=== PATIENT | female | born 1965 | race Caucasian/White ===

== ENCOUNTER 2016-11-25 06:12 | Inpatient (IN) | payer MEDICARE, MEDICAID ==
[~2016-11-25] VITALS: Ht 160 cm; Wt 113.4 kg
[2016-11-25] MEDS ORDERED: ACETAMINOPHEN 325 MG TAB As Ordered ONE (06:53)
[2016-11-25] MEDS ORDERED: ALBUTEROL SULFATE 2.5 MG/0.5 ML INH NEB SOLN As Ordered ONE (06:58)
[2016-11-25] MEDS ORDERED: ONDANSETRON 4MG/2ML VIAL (J2405) As Ordered ONE (07:21)
[2016-11-25 07:25] LABS: BASO % 0.8 % (0.0-1.0); EOS # 0.1 K/mm3 (0.0-0.50); EOS % 1.3 % (0.0-3.0); LARGE UNSTAINED CELL # 0.1 K/mm3 (0.0-0.4); LARGE UNSTAINED CELL % 1.1 % (0.0-4.0); LYMPH # 0.7 K/mm3 (1.5-4.5); LYMPH % 9.1 % (24.0-44.0); MEAN CORPUSCULAR HEMOGLOBIN 26.5 pg (27.0-33.0); MEAN CORPUSCULAR HGB CONC 31.7 g/dl (32.0-36.5); MEAN CORPUSCULAR VOLUME 83.6 fl (80.0-96.0); MONO # 0.2 K/mm3 (0.0-0.8); MONO % 3.5 % (0.0-5.0); NEUTROPHILS # 5.5 K/mm3 (1.8-7.7); NEUTROPHILS % 84.1 % (36.0-66.0); PLATELET COUNT, AUTOMATED 221 k/mm3 (150-450); RED CELL DISTRIBUTION WIDTH 14.4 % (11.5-14.5); WHITE BLOOD COUNT 6.5 K/mm3 (4.0-10.0)
[2016-11-25 07:42] LABS: ANION GAP 10 MEQ/L (8-16); BLOOD UREA NITROGEN 8 MG/DL (7-18); CALCIUM LEVEL 8.4 MG/DL (8.5-10.1); CARBON DIOXIDE LEVEL 26 MEQ/L (21-32); CHLORIDE LEVEL 106 MEQ/L (98-107); CREATININE FOR GFR 0.99 MG/DL (0.55-1.02); GLOMERULAR FILTRATION RATE > 60.0 (>51); GLUCOSE, FASTING 128 MG/DL (70-105); POTASSIUM SERUM 3.5 MEQ/L (3.5-5.1); SODIUM LEVEL 142 MEQ/L (136-145)
[2016-11-25] MEDS ORDERED: IBUPROFEN 800 MG TAB As Ordered ONE (07:58)
[2016-11-25] MEDS ORDERED: AZITHROMYCIN INJ 500MG VIAL (J0456) As Ordered ONE (11:01)
[2016-11-25] MEDS ORDERED: cefTRIAXone SOD 1 GM VIAL (J0696) As Ordered ONE (11:01)
[2016-11-25] MEDS ORDERED: IPRATROPIUM 0.5MG/ALBUTEROL 2.5MG INH SOL UD 3ML (DUONEB)(J7620) NEB PRN (11:15)
[2016-11-25 11:32] VITALS: BP 131/64
[2016-11-25] MEDS ORDERED: IRBE150T12 PO (11:47)
[2016-11-25] MEDS ORDERED: PROM200C5 PO (11:47)
[2016-11-25] MEDS ORDERED: PROT1TAB2 PO (11:47)
[2016-11-25] MEDS ORDERED: ALBU83IN INH (11:47)
[2016-11-25] MEDS ORDERED: AZEL0.1S3 (11:47)
[2016-11-25] MEDS ORDERED: QVAR80AE7 INH (11:47)
[2016-11-25] MEDS ORDERED: REST0.05 OU (11:47)
[2016-11-25] MEDS ORDERED: CETI10TA PO (11:48)
[2016-11-25 11:58] VITALS: BP 131/64
[2016-11-25] MEDS ORDERED: FLUT1SPR2 (12:01)
[2016-11-25] MEDS ORDERED: ESTR62CR PV (12:01)
--- NOTE | 2016-11-25 12:49 | EDDOCDS ---
Nurse's Notes [facility] Name: Malou Castaneda Age: 51 yrs Sex: Female : 1965 Arrival Date: 11/25/2016 Time: 06:12 Bed 10 Private MD: Buck Patel A. Diagnosis: Acute upper respiratory infection, unspecified Presentation: 11/25 06:16 Presenting complaint: EMS states: pt hasn't felt good since she go the pneumonia ko2 vaccine on Thursday. She states fever, chills, general weakness and unable to eat. Suicide/Homicide risk assessment- the patient denies having any suicidal and/or homicidal ideations and does not present with any other emotional, behavioral or mental health complaints. Status: Patient is not a protective services social worker or dependent. Transition of care: patient was not received from another setting of care. Care prior to arrival: See EMS report. 06:16 Acuity: TAWANNA Level 3 ko2 06:16 Method Of Arrival: Ambulance ko2 07:15 Adult Sepsis Screening: The patient does not have new or worsening altered mentation. mcp Patient's respiratory rate is less than 22. Systolic blood pressure is greater than 100. Patient has a qSOFA score of 0- Negative Sepsis Screen. Triage Assessment: 12:06 HIV screening NA for this visit Offered previously. [facility] Historical: - Allergies: decongestants; histamines; steroids"put my body out of whack"; - Home Meds: 1. albuterol sulfate 1.25 mg/3 mL Inhl nebu 3 mL 4 times per day prn 2. azelastine 137 mcg (0.1 %) nasal spra 2 sprays 2 times per day 3. irbesartan 300 mg oral tab 1 tab once daily 4. nasal steroid spray 5. Prometrium 200 mg oral cap once daily 6. Protonix 40 mg Oral TbEC 1 tab once daily 7. Qvar inhalation 2 puffs 2 times per day 8. vaginal cream 1 gm twice weekly 9. 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 - Social history: Smoking status: Patient states former smoker of tobacco. No barriers to communication noted, The patient speaks fluent Chinese. - Hospitalizations: : No recent hospitalization is reported. - : The pt / caregiver states he / she is not on anticoagulants. Home medication list is obtained from the patient. - Immunization history:: All immunizations up-to-date. - Exposure Risk Screening:: None identified. - Family history: Not pertinent. - Social history:: the patient is a non-smoker, the patient does not drink alcohol. Screenin:47 Screening information is obtained from the patient. Fall risk: No risks identified. mcp Assistance ADL's: requires no assistance with activities of daily living. Abuse/DV Screen: The patient / caregiver reports he/she is: not in a situation that causes fear, pain or injury. Nutritional screening: No deficits noted. Advance Directives: Currently, there is no health care proxy. There is no active DNR order. There is no Power of Office Services Assistant. home support is adequate. Assessment: 07:15 General: Appears ill, Behavior is cooperative. Pain: Location: all over Pain currently mcp is 6 out of 10 on a pain scale. Neurological: No deficits noted. Respiratory: Airway is patent Respiratory effort is even, unlabored, Breath sounds are diminished bilaterally. Reports cough that is non-productive, persistent. Derm: Skin is pink, warm & dry. 08:15 General: Appears in no apparent distress, Behavior is cooperative. Pain: Location: face mcp and abdomen Pain currently is 6 out of 10 on a pain scale. Neurological: No deficits noted. Respiratory: Airway is patent Respiratory effort is even, unlabored. GI: Abdomen is obese, Bowel sounds present X 4 quads. Abd is soft X 4 quads. Derm: Skin is pink, warm & dry. 09:15 General: Appears in no apparent distress, Behavior is cooperative. Neurological: No mcp deficits noted. Respiratory: Airway is patent Respiratory effort is even, unlabored. Derm: Skin is pink, warm & dry. 09:15 Adult Sepsis Screening: The patient does not have new or worsening altered mentation. mcp Patient's respiratory rate is less than 22. Systolic blood pressure is greater than 100. Patient has a qSOFA score of 0- Negative Sepsis Screen. 10:15 General: Appears in no apparent distress, Behavior is cooperative. Neurological: No mcp deficits noted. Respiratory: Airway is patent Respiratory effort is even, unlabored. Derm: Skin is moist, Skin is pink, Skin temperature is warm. 11:15 General: Appears in no apparent distress, Behavior is cooperative. Pain: Location: face mcp and abdomen Pain currently is 5 out of 10 on a pain scale. Neurological: No deficits noted. Respiratory: Airway is patent Respiratory effort is even, unlabored. Derm: Skin is pink, warm & dry. 11:15 Adult Sepsis Screening: The patient does not have new or worsening altered mentation. mcp Patient's respiratory rate is less than 22. Systolic blood pressure is greater than 100. Patient has a qSOFA score of 0- Negative Sepsis Screen. 11:35 General: OOB and ambulated to bathroom--gait steady. mcp 12:47 General: Appears in no apparent distress, comfortable, Behavior is cooperative. Pain: mcp Denies pain. Neurological: No deficits noted. Respiratory: Airway is patent Respiratory effort is even, unlabored, Reports cough that is non-productive, persistent. Derm: Skin is pink, warm & dry. Vital Signs: 06:23 BP 156 / 84 RA Supine (auto/reg); Pulse 131 MON; Resp 24 S; Temp 102.9(O); Pulse Ox 96% cln on R/A; Pain 10/10; 08:00 Temp 102.6(O); mcp 08:01 BP 139 / 78; Pulse 128; Resp 20; Temp 102.6(O); Pulse Ox 97% on R/A; Pain 5/10; mcp 09:00 Temp 99.8(O); mcp 09:39 Pulse 96; Resp 20; Temp 99.8(O); mcp 11:35 BP 131 / 64; Pulse 111; Resp 20; Temp 98.1(O); Pulse Ox 97% on R/A; Pain 5/10; mcp 12:47 BP 128 / 63; Pulse 98; Resp 20; Temp 98(O); Pulse Ox 96% on R/A; Pain 0/10; mcp ED Course: 06:13 Patient visited by Natalia Miller. sew 06:13 Patient moved to 10 sew 06:14 Buck Patel is Private Physician. sew 06:14 Patient visited by Natalia Miller. sew 06:18 Ester Savage,RN is Primary Nurse. cf2 06:18 Patient visited by Ester Savage,SHYAM. cf2 06:18 Triage Initiated ko2 06:25 Patient visited by Susanna Fernandes PCA. cln 06:33 Jorgito Gaitan MD is Attending Physician. pc 06:36 Patient visited by Jorgito Gaitan MD. pc 06:58 -Influenza A&B Rapid Antigen - Nose Sent. cf2 06:59 Attending Physician role handed off by Jorgito Gaitan MD sd1 06:59 Natalia Wilkes MD is Attending Physician. sd1 07:09 Patient visited by Ester Savage RN. cf2 07:20 BLOOD CULTURES Sent. mcp 07:20 -Blood Culture Sent. mcp 07:20 MED Profile Sent. mcp 07:20 CBC with Diff Sent. mcp 07:47 The patient / caregiver is instructed regarding the plan of care and ED course. Patient mcp has correct armband on for positive identification. Placed in gown. Bed in low position. Call light in reach. Side rails up X2. 07:47 Missed attempts: 20 gauge X 1 in right hand. mcp 07:47 Inserted saline lock: 20 gauge in left antecubital area and blood collected. The [facility] patient tolerated the procedure well. Labs drawn. (by ED staff). Sent per order to lab. Labs/Blood culture drawn. 07:48 Patient visited by Christi Lundy RN. mcp 08:02 Patient visited by Christi Lundy RN. mcp 08:06 [facility] Payment Agreement was scanned into [employer] and attached to record. mm15 09:11 Patient visited by Gloria Carpio PCA. ct3 09:38 Lactic Acid (Ivory tube on ice) Sent. mcp 09:38 Labs drawn. (by ED staff). Sent per order to lab. mcp 09:57 Patient visited by Gloria Carpio PCA. ct3 10:06 Patient visited by Abiodun Narvaez. dem1 10:06 Diet: Patient given regular meal. dem1 11:03 Rafael Stewart MD is Hospitalizing Provider. sd1 11:16 Patient visited by Christi Lundy RN. mcp 11:36 Patient visited by Christi Lundy RN. mcp 12:05 No procedures done that require assistance. mcp 12:07 Patient visited by Christi Lundy RN. [facility] Administered Medications: 06:58 Drug: Acetaminophen 650 mg [acetaminophen 325 mg tablet (2 tabs)] Route: PO; cf2 08:00 Follow up: Temp 102.6 Oral; Response: Temperature is unchanged [facility] 07:00 Drug: Albuterol 5 mg [albuterol sulfate 2.5 mg/0.5 mL solution for nebulization (1 mL)] bb3 Route: Nebulizer; 07:10 Follow up: lung sounds increased throughout with scattered expiratory wheezes. No bb3 adverse reaction to tx. Pt denies SOB past baseline at rest at this time. 07:26 Drug: Ondansetron 4 mg [ondansetron HCl 2 mg/mL intravenous solution (2 mL)] Route: mcp IVP; Site: left antecubital; 07:26 Drug: NS 0.9% 1000 ml [sodium chloride 0.9 % intravenous solution] Route: IV; Rate: mcp bolus; Site: left antecubital; 11:14 Follow up: IV Status: Completed infusion; IV Intake: 1000ml [facility] 08:01 Drug: Ibuprofen 800 mg [ibuprofen 800 mg tablet (1 tabs)] Route: PO; [facility] 09:00 Follow up: Temp 99.8 Oral; Response: Temperature is decreased [facility] 11:12 Drug: cefTRIAXone 1 grams [ceftriaxone 1 gram solution for injection] Route: IVPB; mcp Infused Over: 30 mins; Site: left antecubital; 11:34 Drug: azithromycin 500 mg [azithromycin 500 mg intravenous solution] Route: IVPB; mcp Infused Over: 1 hrs; Site: left antecubital; Intake: 11:14 IV: 1000.00ml; Total: 1000.00ml. [facility] RT: 06:59 Oxygen is room air. Respiratory: Respiratory effort is even, Use of accessory muscles bb3 noted. Respiratory pattern is regular symmetrical, tachypnea Breath sounds are diminished Breath sounds with wheezes bilaterally. at expiration Reports cough that is productive that she thinks she has thrush. Pt states she has not always rinsed mouth after taking QVAR at home. 07:01 Initial Med Neb Given as ordered Patient was instructed and evaluated on procedure. bb3 07:02 Respiratory: Sputum is thick green yellow spontaneously expectorated during neb tx. bb3 small amount. 07:09 Respiratory: lung sounds increased throughout with scattered expiratory wheezes. No bb3 adverse reaction to tx. Pt denies SOB past baseline at rest at this time. Order Results: Lab Order: CBC with Diff; SPEC'M 11/25/16 06:42 Test: WHITE BLOOD COUNT; Value: 6.5; Range: 4.0-10.0; Units: K/mm3; Status: F Test: RED BLOOD COUNT; Value: 4.63; Range: 4.00-5.40; Units: M/mm3; Status: F Test: HEMOGLOBIN; Value: 12.3; Range: 12.0-16.0; Units: g/dl; Status: F Test: HEMATOCRIT; Value: 38.7; Range: 36.0-47.0; Units: %; Status: F Test: MEAN CORPUSCULAR VOLUME; Value: 83.6; Range: 80.0-96.0; Units: fl; Status: F Test: MEAN CORPUSCULAR HEMOGLOBIN; Value: 26.5; Range: 27.0-33.0; Abnormal: Below low normal; Units: pg; Status: F Test: MEAN CORPUSCULAR HGB CONC; Value: 31.7; Range: 32.0-36.5; Abnormal: Below low normal; Units: g/dl; Status: F Test: RED CELL DISTRIBUTION WIDTH; Value: 14.4; Range: 11.5-14.5; Units: %; Status: F Test: PLATELET COUNT, AUTOMATED; Value: 221; Range: 150-450; Units: k/mm3; Status: F Test: NEUTROPHILS %; Value: 84.1; Range: 36.0-66.0; Abnormal: Above high normal; Units: %; Status: F Test: LYMPH %; Value: 9.1; Range: 24.0-44.0; Abnormal: Below low normal; Units: %; Status: F Test: MONO %; Value: 3.5; Range: 0.0-5.0; Units: %; Status: F Test: EOS %; Value: 1.3; Range: 0.0-3.0; Units: %; Status: F Test: BASO %; Value: 0.8; Range: 0.0-1.0; Units: %; Status: F Test: LARGE UNSTAINED CELL %; Value: 1.1; Range: 0.0-4.0; Units: %; Status: F Test: NEUTROPHILS #; Value: 5.5; Range: 1.8-7.7; Units: K/mm3; Status: F Test: LYMPH #; Value: 0.7; Range: 1.5-4.5; Abnormal: Below low normal; Units: K/mm3; Status: F Test: MONO #; Value: 0.2; Range: 0.0-0.8; Units: K/mm3; Status: F Test: EOS #; Value: 0.1; Range: 0.0-0.50; Units: K/mm3; Status: F Test: BASO #; Value: 0.0; Range: 0.0-0.2; Units: K/mm3; Status: F Test: LARGE UNSTAINED CELL #; Value: 0.1; Range: 0.0-0.4; Units: K/mm3; Status: F Lab Order: MED Profile; [facility] 11/25/16 06:41 Test: GLUCOSE, FASTING; Value: 128; Range: 70-105; Abnormal: Above high normal; Units: MG/DL; Status: F Test: BLOOD UREA NITROGEN; Value: 8; Range: 7-18; Units: MG/DL; Status: F Test: CREATININE FOR GFR; Value: 0.99; Range: 0.55-1.02; Units: MG/DL; Status: F Test: GLOMERULAR FILTRATION RATE; Value: > 60.0; Range: >51; Status: F Test: SODIUM LEVEL; Value: 142; Range: 136-145; Units: MEQ/L; Status: F Test: POTASSIUM SERUM; Value: 3.5; Range: 3.5-5.1; Units: MEQ/L; Status: F Test: CHLORIDE LEVEL; Value: 106; Range: 98-107; Units: MEQ/L; Status: F Test: CARBON DIOXIDE LEVEL; Value: 26; Range: 21-32; Units: MEQ/L; Status: F Test: ANION GAP; Value: 10; Range: 8-16; Units: MEQ/L; Status: F Test: CALCIUM LEVEL; Value: 8.4; Range: 8.5-10.1; Abnormal: Below low normal; Units: MG/DL; Status: F Test Note: ; Units are mL/min/1.73 m2 Chronic Kidney Disease Staging per NKF: Stage I & II GFR >=60 Normal to Mildly Decreased Stage III GFR 30-59 Moderately Decreased Stage IV GFR 15-29 Severely Decreased Stage V GFR <15 Very Little GFR Left ESRD GFR <15 on GAME [employer]UCER Lab Order: -Influenza A&B Rapid Antigen - Nose; SPEC'M 11/25/16 06:42 Test: INFLUENZA A RAPID SCR by ICA; Value: INFLUENZA A RESULTS NEGATIVE; Status: F Test: INFLUENZA A RAPID SCR by ICA; Value: Comments:; Status: F Test: INFLUENZA B RAPID SCR by ICA; Value: INFLUENZA B RESULTS NEGATIVE; Status: F Test Note: ; The Influenza test is a direct rapid immunoassay for the qualitative detection of Influenza viral antigen. Cell culture (Viral Culture) testing should be considered to confirm NEGATIVE results and to assist in detecting other viruses that can provide similar clinical symptoms. Please contact the lab within 24 hours ([phone]) if confirmatory testing is desired. Lab Order: Lactic Acid (Ivory tube on ice); SPEC'M 11/25/16 09:36 Test: LACTIC ACID LEVEL, LACTATE; Value: 3.0; Range: 0.4-2.0; Abnormal: Above upper panic limits; Units: MMOL/L; Status: F Outcome: 11:04 Decision to Hospitalize by Provider. sd1 12:47 Discharge Assessment: patient administered narcotics - no. The following High Risk [facility] Discharge criteria are identified: None. Admitted to Pediatrics accompanied by tech, via stretcher, with chart. Condition: stable. No special radiology studies were completed. Property :Personal belongings accompany Pt. 12:48 Patient left the ED. [facility] Signatures: Jorgito Gaitan MD MD pc Delaney-Rowland, Sarah, MD MD sd1 Christi Lundy RN RN [facility] Harris Moreno bb3 Gloria Carpio, KILN PACKER KILN PACKER ct3 Abiodun Narvaez dem1 Natalia Miller Marlynn mm15 Elizabeth Cohen RN RN ko2 Susanna Fernandes, KILN PACKER KILN PACKER cln Ester Savage,SHYAM RN cf2 Corrections: (The following items were deleted from the chart) 07:04 06:59 Respiratory: Respiratory effort is even, Use of accessory muscles noted. bb3 Respiratory pattern is regular symmetrical, tachypnea Breath sounds are diminished Breath sounds with wheezes bilaterally. at expiration Reports cough that is productive bb3 11:13 09:39 Temp 99.8F Oral; mcp mcp MTDD
--- NOTE | 2016-11-25 12:50 | EDDOCDS ---
Physician Documentation [facility] Name: Malou Castaneda Age: 51 yrs Sex: Female : 1965 Arrival Date: 11/25/2016 Time: 06:12 Bed 10 Private MD: Buck Patel A. Disposition: 11/25/16 11:04 Hospitalization ordered by Rafael Stewart for Inpatient Admission. Preliminary diagnosis is Acute upper respiratory infection, unspecified. - Bed requested for M PED. - Status is Inpatient Admission. mcp - Condition is Stable. - Problem is new. - Symptoms have improved. HPI: 11/25 06:38 This 51 yrs old Female presents to ER via Ambulance with complaints of pc General Illness. 06:38 The history is obtained from the patient. She had been feeling well until when she received the pneumococcal vaccine. She has had fevers, chills, a nonproductive cough, and body aches since. She has nausea and is "deathly afraid of vomiting". She denies any vomiting or diarrhea, symptoms, headache, rashes, joint swellings. The patient has not experienced similar symptoms in the past. The patient has been recently seen by their primary care provider, 6 day(s) ago. Historical: - Allergies: decongestants; histamines; steroids"put my body out of whack"; - Home Meds: 1. albuterol sulfate 1.25 mg/3 mL Inhl nebu 3 mL 4 times per day prn 2. azelastine 137 mcg (0.1 %) nasal spra 2 sprays 2 times per day 3. irbesartan 300 mg oral tab 1 tab once daily 4. nasal steroid spray 5. Prometrium 200 mg oral cap once daily 6. Protonix 40 mg Oral TbEC 1 tab once daily 7. Qvar inhalation 2 puffs 2 times per day 8. vaginal cream 1 gm twice weekly 9. 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 - Social history: Smoking status: Patient states former smoker of tobacco. No barriers to communication noted, The patient speaks fluent Nepali. - Hospitalizations: : No recent hospitalization is reported. - : The pt / caregiver states he / she is not on anticoagulants. Home medication list is obtained from the patient. - Immunization history:: All immunizations up-to-date. - Exposure Risk Screening:: None identified. - Family history: Not pertinent. - Social history:: the patient is a non-smoker, the patient does not drink alcohol. ROS: 06:38 All systems are negative except as listed. pc Exam: 06:38 General Appearance: no acute distress, alert, anxious. pc 06:38 EENT: normal eye inspection, ears, nose and throat normal, pharynx normal, mucous membranes moist 06:38 Neck: The exam reveals no acute abnormalities. ROM is normal and painless. No nuchal rigidity is noted.. 06:38 Respiratory: no respiratory distress, chest non-tender, Respirations/effort: tachypnea, Breath sounds: wheezing, throughout. 06:38 CVS: regular rhythm, normal S1 and S2, no murmurs, strong peripheral pulses, normal capillary refill, the patient is tachycardic, at 130 bpm. 06:38 Abdomen: soft, non-tender, no organomegaly, normal bowel sounds. 06:38 Back: normal inspection. 06:38 Skin: skin color is normal, warm, dry. 06:38 Extremities: The extremities have a grossly normal appearance, are non-tender, without acute ROM abnormalities. 06:38 Neuro: oriented x 3, cranial nerves normal as tested, no motor deficits, no sensory deficits. 06:38 Psych: normal mood. Vital Signs: 06:23 BP 156 / 84 RA Supine (auto/reg); Pulse 131 MON; Resp 24 S; Temp 102.9(O); Pulse Ox 96% cln on R/A; Pain 10/10; 08:00 Temp 102.6(O); mcp 08:01 BP 139 / 78; Pulse 128; Resp 20; Temp 102.6(O); Pulse Ox 97% on R/A; Pain 5/10; mcp 09:00 Temp 99.8(O); mcp 09:39 Pulse 96; Resp 20; Temp 99.8(O); mcp 11:35 BP 131 / 64; Pulse 111; Resp 20; Temp 98.1(O); Pulse Ox 97% on R/A; Pain 5/10; mcp 12:47 BP 128 / 63; Pulse 98; Resp 20; Temp 98(O); Pulse Ox 96% on R/A; Pain 0/10; mcp MDM: 06:38 IV Saline Lock ordered. pc 06:38 Ondansetron 4 mg IVP once ordered. pc 06:38 NS 0.9% 1000 ml IV at bolus once ordered. pc 06:38 Acetaminophen Tablet 650 mg PO once ordered. pc 06:38 -Blood Culture (Adults Only), peripheral from different site, or from device/port/PICC pc etc. if present ordered. 06:38 Obtain sample by nasopharyngeal swab ordered. pc 06:38 -Blood Culture (Adults Only), peripheral from different site, or from device/port/PICC sew etc. if present complete. 06:38 Differential Diagnosis: fever, cough r/o pneumonia. Plan: labs, meds, CXR. pc 06:39 CBC with Diff Ordered. EDMS 06:39 MED Profile Ordered. EDMS 06:39 -Blood Culture Ordered. EDMS 06:39 -Influenza A&B Rapid Antigen - Nose Ordered. EDMS 06:39 Chest, 2 View (pa\\E\\lat) Ordered. EDMS 06:41 BLOOD CULTURES Ordered. EDMS 06:47 Albuterol 5 mg Nebulizer once ordered. pc 06:47 Call Respiratory ordered. pc 06:54 Call Respiratory complete. nov 07:51 CBC with Diff Reviewed. sd1 07:51 MED Profile Reviewed. sd1 07:51 -Influenza A&B Rapid Antigen - Nose Reviewed. sd1 07:56 Ibuprofen 800 mg PO once ordered. sd1 08:05 Financial registration complete. mm15 08:06 [facility] Payment Agreement was scanned into [employer] and attached to record. mm15 08:35 Lactic Acid (Ivory tube on ice) Ordered. EDMS 09:53 REGULAR+DIET ordered. EDMS 10:33 cefTRIAXone 1 grams IVPB once over 30 mins; dilute in 50mL of NS or D5W ordered. sd1 10:33 azithromycin 500 mg IVPB once over 1 hrs; dilute in 250mL of D5W or NS ordered. sd1 10:34 Lactic Acid (Ivory tube on ice) Reviewed. sd1 11:17 ELECTROCARDIOGRAM ADULT ordered. EDMS 11:17 2 GRAM SODIUM DIET ordered. EDMS 11:17 LEGIONELLA ANTIGEN URINE Ordered. EDMS 11:17 URINE STREP PNEUMONIAE ANTIGEN Ordered. EDMS 11:17 SPUTUM CULTURE AND GRAM STAIN Ordered. EDMS 11:18 Admission / Observation Status ordered. EDMS 11:20 LACTIC ACID LEVEL, LACTATE Ordered. EDMS Administered Medications: 06:58 Drug: Acetaminophen 650 mg [acetaminophen 325 mg tablet (2 tabs)] Route: PO; cf2 08:00 Follow up: Temp 102.6 Oral; Response: Temperature is unchanged [facility] 07:00 Drug: Albuterol 5 mg [albuterol sulfate 2.5 mg/0.5 mL solution for nebulization (1 mL)] bb3 Route: Nebulizer; 07:10 Follow up: lung sounds increased throughout with scattered expiratory wheezes. No bb3 adverse reaction to tx. Pt denies SOB past baseline at rest at this time. 07:26 Drug: Ondansetron 4 mg [ondansetron HCl 2 mg/mL intravenous solution (2 mL)] Route: mcp IVP; Site: left antecubital; 07:26 Drug: NS 0.9% 1000 ml [sodium chloride 0.9 % intravenous solution] Route: IV; Rate: mcp bolus; Site: left antecubital; 11:14 Follow up: IV Status: Completed infusion; IV Intake: 1000ml [facility] 08:01 Drug: Ibuprofen 800 mg [ibuprofen 800 mg tablet (1 tabs)] Route: PO; [facility] 09:00 Follow up: Temp 99.8 Oral; Response: Temperature is decreased [facility] 11:12 Drug: cefTRIAXone 1 grams [ceftriaxone 1 gram solution for injection] Route: IVPB; mcp Infused Over: 30 mins; Site: left antecubital; 11:34 Drug: azithromycin 500 mg [azithromycin 500 mg intravenous solution] Route: IVPB; mcp Infused Over: 1 hrs; Site: left antecubital; Signatures: Dispatcher [employer] EDMS Jorgito Gaitan MD MD pc Delaney-Rowland, Sarah, MD MD sd1 Yarelis Gallardo RN RN kpj Newman, Jill New, RN RN jan Peters, Mary, RN RN [facility] Natalia Miller Marlynn mm15 Elizabeth Cohen RN RN ko2 Katarina Way RN RN lmg Bouthillier, Brad bb3 Familetti-Evans, Ester RN cf2 The chart was reviewed and I authenticate all verbal orders and agree with the evaluation and treatment provided.Corrections: (The following items were deleted from the chart) 12:28 11:20 Sinuses ordered. EDMS EDMS Attachments: 08:06 [facility] Payment Agreement mm15 MTDD
[2016-11-25 12:52] VITALS: BP 130/96
[2016-11-25] MEDS: NS 1,000 ML IV SCH ×2 (13:51→20:42)
[2016-11-25] MEDS: ENOXAPARIN 40 MG/0.4 ML SYRINGE (J1650) SC SCH (13:59)
[2016-11-25] MEDS: IPRATROPIUM 0.5MG/ALBUTEROL 2.5MG INH SOL UD 3ML (DUONEB)(J7620) NEB SCH ×4 (14:00→23:21)
[2016-11-25] MEDS ORDERED: ALBUTEROL SULFATE 2.5 MG/0.5 ML INH NEB SOLN INH PRN (14:15)
[2016-11-25] MEDS: PANTOPRAZOLE 40MG TAB (PROTONIX) PO SCH (14:25)
--- NOTE | 2016-11-25 14:38 | REP ---
PA and lateral chest radiograph 11/25/2016 Indication: Cough Comparison: Chest radiographs 11/07/2016, 07/20/2016 Findings: Cardiomediastinal silhouette is normal. There is a small stable right epicardial fat pad. The lungs are otherwise clear. Bones and soft tissues are within normal limits. Impression: no acute cardiopulmonary process or interval change Signed by Juana Quick MD 11/25/2016 10:10 A
--- NOTE | 2016-11-25 14:56 | HPEPDOC ---
General Date of Admission Nov 25, 2016 at 11:13 Chief Complaint The patient is a 51-year-old female Presented to the ER with complaints of cough and fever at home History of Present Illness Patient is a 51 year old female with a PMHx of chronic sinusitis (s/p 3 surgeries on the R, scheduled for surgery on the L), GERD, HTN, Asthma and Usher Syndrome (Type 2) who presented to the ER with complaints of cough for the last 2-3 days. She notes that her cough was productive with yellow sputum. She denies any blood in her sputum. She denies any shortness of breath. She does note that she has measured a fever at home prior to arrival. She measured her temperature orally at 101.4F. She notes that she has been wheezing. She denies any lower extremity swelling, denies the inability to lay flat on her back and denies any night time awakenings because of shortness of breath. She notes that she has received the flu shot in August this year and has received the pneumococcal vaccine on 11/20. She denies the use of any recent antibiotics. She denies nausea, vomiting, abdominal pain, constipation, diarrhea or urinary symptoms. She denies chest pain, palpitations. Home Medications Scheduled (Restasis) 0.05 % Emu 0.05 % OU BID (Reported) Azelastine Hydrochloride (Azelastine HCl) 137 Mcg/[place] Spr 2 SPRAY NA BID ( Reported) Beclomethasone Dipropionate (Qvar) 80 Mcg/Act Aer 80 MCG INH BID (Reported) Conjugated Estrogens (Premarin) 1 Dose/30 Gm Cr 1 GRAM PV 2XWK (Reported) THURSDAY AND THURSDAY Fluticasone Propionate (Fluticasone Propionate 0.05%) 120 [place]/16 Gm Naspr 2 SPRAY NA BID (Reported) PER NOSTRIL Irbesartan (Irbesartan) 150 Mg Tab 150 MG PO DAILY (Reported) Pantoprazole Sodium Sesquihydr (Protonix) 40 Mg Tab 40 MG PO DAILY (Reported) Scheduled PRN Albuterol Sulfate (Albuterol Sulfate) 2.5 Mg/3 Ml Nebu 2.5 MG INH Q4H PRN PRN SHORTNESS OF BREATH (Reported) Allergies Coded Allergies: Animal Dander (Unverified Allergy, Unknown, 11/19/15) ENVIROMENTAL (Unverified Allergy, Unknown, 11/19/15) Histamine (Unverified Allergy, Unknown, 11/25/16) Uncoded Allergies: DECONGESTANTS (Adverse Reaction, Intermediate, HEART FLUTTERS, 11/19/15) Past Medical History Medical History Chronic sinusitis (s/p 3 surgeries on the R, scheduled for surgery on the L), GERD, HTN, Asthma and Usher Syndrome (Type 2) Surgical History Right fallopian tube removed Ovarian cyst removal Heart ablation (2000) 2/2 palpitations Right sinus surgery x3 Family History Family History - Mother with skin cancer - Father with DLP and heart disease Social History Social History - Denies the use of alcohol, or illicit drugs; Smoked for 5 years about 30 years ago - Denies recent travel or sick contacts - Lives alone - Occupation; on disability Review of Symptoms Other systems Constitutional: Denies weight loss, or recent trauma; Reports poor appetite Eyes: No visual changes or eye pain Ears, Nose, Throat: Denies nose bleeds, or difficulty swallowing Cardiovascular: Denies chest pain, sweating, or orthopnea Respiratory: Positive productive cough and wheezing, Denies shortness of breath GI: Braydon nausea, vomiting, abdominal pain, diarrhea or constipation : Denies pain with urination or frequency Musculoskeletal: Denies joint pain or swelling Neuro / Psych: Denies muscle weakness or sensory loss Skin: No skin rashes noted All other review of systems negative; otherwise stated in history of present illness Screening: - Colonoscopy done 2 years ago reported normal - Pap smear and mammogram done within 1 year reported normal Vital Signs - Vitals: BP 139/78, HR 128, RR 20, Sat 97%RA, Temp 102.9 - General: Lying in bed, No acute distress, Speaking in full sentences, AAOx3 - HEENT: NC, AT, PERRLA, EOMI - CVS: Tachycardia, Regular rhythm, +S1S2 - Lungs: Fair air entry bilaterally, Clear to auscultation, No wheezing / rales / rhonchi - Abdomen: Soft, Non-distended, Non-tender, + Bowel sounds x 4 - Extremities: + PPx4, No lower extremity edema, No calf tenderness - Neuro: No focal motor or sensory deficit - Skin: No visible rashes Laboratory Data Labs 24H Laboratory Tests 2 11/25/16 06:41: Anion Gap 10, Blood Urea Nitrogen 8, Creatinine 0.99, Sodium Level 142, Potassium Level 3.5, Chloride Level 106, Carbon Dioxide Level 26, Calcium Level 8.4L, Glomerular Filtration Rate > 60.0 11/25/16 06:42: White Blood Count 6.5, Red Blood Count 4.63, Hemoglobin 12.3, Hematocrit 38.7, Mean Corpuscular Volume 83.6, Mean Corpuscular Hemoglobin 26.5L, Mean Corpuscular Hemoglobin Concent 31.7L, Red Cell Distribution Width 14.4, Platelet Count 221, Neutrophils (%) (Auto) 84.1H, Lymphocytes (%) (Auto) 9.1L, Monocytes (%) (Auto) 3.5, Eosinophils (%) (Auto) 1.3, Basophils (%) (Auto) 0.8, Neutrophils # (Auto) 5.5, Lymphocytes # (Auto) 0.7L, Monocytes # (Auto) 0.2, Eosinophils # (Auto) 0.1, Basophils # (Auto) 0.0, Large Unclassified Cells # 0.1 , Large Unclassified Cells % 1.1 11/25/16 09:36: Lactic Acid Level 3.0*H 11/25/16 13:52: Lactic Acid Level 1.0 CBC/BMP Laboratory Tests 11/25/16 06:41 Calcium Level 8.4 L 11/25/16 06:42 Red Blood Count 4.63, Mean Corpuscular Volume 83.6, Mean Corpuscular Hemoglobin 26.5 L, Mean Corpuscular Hemoglobin Concent 31.7 L, Red Cell Distribution Width 14.4, Neutrophils (%) (Auto) 84.1 H, Lymphocytes (%) (Auto) 9.1 L, Monocytes (% ) (Auto) 3.5, Eosinophils (%) (Auto) 1.3, Basophils (%) (Auto) 0.8, Neutrophils # (Auto) 5.5, Lymphocytes # (Auto) 0.7 L, Monocytes # (Auto) 0.2, Eosinophils # (Auto) 0.1, Basophils # (Auto) 0.0 Microbiology Microbiology 11/25/16 Blood Culture, Received Pending 11/25/16 Blood Culture, Received Pending 11/25/16 Influenza Virus Type A Antigen - Final, Complete 11/25/16 Influenza Virus Type B Antigen - Final, Complete Plan / VTE VTE Prophylaxis Ordered?: Yes Plan Plan 1. Sepsis possibly 2/2 CAP, possibly 2/2 sinusitis - Clinically has productive cough with yellow sputum, Fevers at home - Has had fevers in the ER - Elevated lactic acid, trending down with IV fluid hydration - CXR negative - Will f/u blood culture, sputum culture and strep pneumonia / legionella urine antigen - Will get CT chest and XR sinuses - Will c/w Ceftriaxone and Azithromycin 2. Dyspnea likely 2/2 #1 - improving - no evidence of wheezing on physical exam 3. Chronic sinusitis - most recent antibiotic use was September - s/p R sided surgery x3 - scheduled for left sided surgery in November 4. HTN - BP well controlled; will c/w SOHAIL-I withholding parameters 5. Asthma - c/w Duoneb 6. Usher Syndrome (Type 2) 7. GERD - c/w protonix 8. DVT prophylaxis - Will start lovenox SATHYA HI MD Nov 25, 2016 14:56
[2016-11-25 16:00] VITALS: BP 132/87
[2016-11-25] MEDS: IRBESARTAN 150 MG TAB PO SCH (16:48)
[2016-11-25] MEDS: ACETAMINOPHEN TAB 650MG DOSE (2X325MG) PO PRN ×2 (16:48→21:31)
[2016-11-25 20:00] VITALS: BP 139/77
[2016-11-25] MEDS: AZELASTINE 137MCG NASAL SPY 30 ML (ASTELIN) SCH (20:41)
[2016-11-25] MEDS: FLUTICASONE PROP 0.05% NASAL SPRAY 16 GM (FLONASE) SCH (20:41)
[2016-11-25] MEDS: CEPACOL LOZENGE PO PRN (22:01)
[2016-11-25 23:30] VITALS: BP 115/61
[2016-11-26] VITALS (7 sets, daily range): BP systolic 112–143; BP diastolic 63–77
[2016-11-26] MEDS: IBUPROFEN 800 MG TAB PO PRN ×2 (00:11→17:56)
[2016-11-26] MEDS: LORazepam 0.5 MG TAB PO PRN ×2 (00:11→21:51)
[2016-11-26] MEDS: CEPACOL LOZENGE PO PRN ×4 (00:11→21:51)
[2016-11-26 07:12] LABS: ALBUMIN 2.6 GM/DL (3.2-5.2); ALBUMIN/GLOBULIN RATIO 0.81 (1.00-1.93); ALKALINE PHOSPHATASE 61 U/L (45-117); ALT/SGPT 14 U/L (12-78); ANION GAP 9 MEQ/L (8-16); AST/SGOT 8 U/L (15-37); BILIRUBIN,TOTAL 0.2 MG/DL (0.2-1.0); BLOOD UREA NITROGEN 6 MG/DL (7-18); CALCIUM LEVEL 7.9 MG/DL (8.5-10.1); CARBON DIOXIDE LEVEL 22 MEQ/L (21-32); CHLORIDE LEVEL 112 MEQ/L (98-107); CREATININE FOR GFR 0.75 MG/DL (0.55-1.02); GLOMERULAR FILTRATION RATE > 60.0 (>51); GLUCOSE, FASTING 111 MG/DL (70-105); MAGNESIUM LEVEL 1.9 MG/DL (1.8-2.4); POTASSIUM SERUM 3.6 MEQ/L (3.5-5.1); SODIUM LEVEL 143 MEQ/L (136-145); TOTAL PROTEIN 5.8 GM/DL (6.4-8.2)
[2016-11-26 07:18] LABS: BASO % 0.7 % (0.0-1.0); EOS % 1.2 % (0.0-3.0); LARGE UNSTAINED CELL # 0.1 K/mm3 (0.0-0.4); LARGE UNSTAINED CELL % 1.8 % (0.0-4.0); LYMPH # 0.7 K/mm3 (1.5-4.5); LYMPH % 17.8 % (24.0-44.0); MEAN CORPUSCULAR HEMOGLOBIN 27.2 pg (27.0-33.0); MEAN CORPUSCULAR HGB CONC 32.4 g/dl (32.0-36.5); MEAN CORPUSCULAR VOLUME 84.2 fl (80.0-96.0); MONO # 0.2 K/mm3 (0.0-0.8); MONO % 5.9 % (0.0-5.0); NEUTROPHILS # 2.6 K/mm3 (1.8-7.7); NEUTROPHILS % 72.6 % (36.0-66.0); PLATELET COUNT, AUTOMATED 189 k/mm3 (150-450); RED CELL DISTRIBUTION WIDTH 14.6 % (11.5-14.5); WHITE BLOOD COUNT 3.6 K/mm3 (4.0-10.0)
[2016-11-26] MEDS: IPRATROPIUM 0.5MG/ALBUTEROL 2.5MG INH SOL UD 3ML (DUONEB)(J7620) NEB SCH ×3 (07:58→19:58)
[2016-11-26] MEDS: ENOXAPARIN 40 MG/0.4 ML SYRINGE (J1650) SC SCH (08:39)
[2016-11-26] MEDS: PANTOPRAZOLE 40MG TAB (PROTONIX) PO SCH (08:39)
[2016-11-26] MEDS: AZELASTINE 137MCG NASAL SPY 30 ML (ASTELIN) SCH ×2 (08:39→20:27)
[2016-11-26] MEDS: FLUTICASONE PROP 0.05% NASAL SPRAY 16 GM (FLONASE) SCH ×2 (08:39→20:26)
[2016-11-26] MEDS: cefTRIAXone SOD 1 GM in D5W MINI-BAG PLUS 50 ML IV SCH (11:09)
[2016-11-26] MEDS ORDERED: AZITHROMYCIN 500 MG, VIAL MATE ADAPTER 1 EACH in D5W 250 ML IV SCH (12:00)
[2016-11-26] MEDS: ACETAMINOPHEN TAB 650MG DOSE (2X325MG) PO PRN ×2 (14:00→19:01)
--- NOTE | 2016-11-26 14:06 | IPNPDOC ---
Text Note Date of Service The patient was seen on 11/26/16 at 14:02. NOTE Subjective: Patient is a 51 year old female with a PMHx of chronic sinusitis (s/p 3 surgeries on the R, scheduled for surgery on the L), GERD, HTN, Asthma and Usher Syndrome (Type 2) who presented to the ER with complaints of productive cough. Patient was admitted for Sepsis 2/2 CAP / Bronchitis / Sinusitis. Her lactic acid has been trending down. She has been seen and examined at the bedside. She notes that she is feeling better. Her last fever was 1/3 PM. Objective: Vitals (See below) General: Lying in bed, no acute distress, AAOx3 HEENT: NC, AT CVS: RRR, +S1S2 Lungs: Fair air entry b/l, -w/r/r Abdomen: Soft, ND, NT, +BSx4 Extremities: +PPx4, -edema, - calf tenderness Assessment and plan: 1. Sepsis possibly 2/2 CAP or bronchitis , possibly 2/2 sinusitis - Clinically has productive cough with yellow sputum, fevers at home, ER and inpatient - Tmax of 102 1/3 PM - Elevated lactic acid, has trending down with IV fluid hydration - CXR negative - Will f/u blood culture, sputum culture and strep pneumonia / legionella urine antigen - Will get CT chest and XR sinuses - c/w Ceftriaxone and Azithromycin (Day #2) 2. Dyspnea likely 2/2 #1 - improving - no evidence of wheezing on physical exam 3. Chronic sinusitis - most recent antibiotic use was September - s/p R sided surgery x3 - scheduled for left sided surgery in November - will get XR sinuses now to evaluate for acute sinusitis 4. HTN - BP well controlled; will c/w SOHAIL-I withholding parameters 5. Asthma - c/w Duoneb 6. Usher Syndrome (Type 2) 7. GERD - c/w protonix 8. DVT prophylaxis - c/w lovenox VS,Fishbone, I+O VS, Fishbone, I+O Laboratory Tests 11/26/16 06:16 Calcium Level 7.9 L, Aspartate Amino Transf (AST/SGOT) 8 L, Alanine Aminotransferase (ALT/SGPT) 14, Alkaline Phosphatase 61, Total Bilirubin 0.2, Total Protein 5.8 L, Albumin 2.6 L, Red Blood Count 3.86 L, Mean Corpuscular Volume 84.2, Mean Corpuscular Hemoglobin 27.2, Mean Corpuscular Hemoglobin Concent 32.4, Red Cell Distribution Width 14.6 H, Neutrophils (%) (Auto) 72.6 H , Lymphocytes (%) (Auto) 17.8 L, Monocytes (%) (Auto) 5.9 H, Eosinophils (%) ( Auto) 1.2, Basophils (%) (Auto) 0.7, Neutrophils # (Auto) 2.6, Lymphocytes # ( Auto) 0.7 L, Monocytes # (Auto) 0.2, Eosinophils # (Auto) 0.0, Basophils # (Auto ) 0.0 Vital Signs Date Time Temp Pulse Resp B/P Pulse Ox O2 Delivery O2 Flow Rate FiO2 11/26/16 12:00 100.0 103 20 143/77 95 Room Air I&O- Last 24 Hours up to 6 AM 11/26/16 06:00 Intake Total 2762 ml Output Total 750 ml Balance 2011 ml SATHYA HI MD Nov 26, 2016 14:06
--- NOTE | 2016-11-26 15:08 | REP ---
PARANASAL SINUS SERIES: Four views of paranasal sinus are performed. There appears to be trace mucosal thickening in the sphenoid, maxillary, and ethmoid sinuses. No air-fluid levels are seen. Adenoids are not definitely enlarged. IMPRESSION: Trace mucosal thickening ethmoid, maxillary, and sphenoid sinuses. No air-fluid levels. Signed by Yosi Ivory MD 11/26/2016 05:23 P
[2016-11-26] MEDS: IRBESARTAN 150 MG TAB PO SCH (17:56)
--- NOTE | 2016-11-26 19:04 | REP ---
CT chest without contrast, 11/26/2016: Indication: Evaluate for community-acquired pneumonia. Comparison: CTA chest 12/17/2015, chest radiograph 11/25/2016 and 07/20/2016. 3 mm contiguous spiral axial sections were performed through the chest without contrast. The thoracic aorta is without aneurysm. The heart is of normal size. There are no significant coronary artery calcifications. There are a few scattered mediastinal nodes, none of which are pathologically enlarged. Lungs are without focal consolidation. Small amount of stranding is seen in lingula related to scarring and is slightly increased when compared with prior CTA chest 12/17/2015. There are no pleural effusions or pulmonary nodules. There are no interstitial or alveolar infiltrates. Visualized portions of liver, spleen, pancreas, gallbladder and adrenal glands are normal. There is a 2.3 cm hiatal hernia with mild circumferential mural thickening. There are a few bilateral nonspecific axillary lymph nodes with progression from prior study. Impression: No pathologically enlarged mediastinal or hilar adenopathy. Nonspecific axillary adenopathy bilaterally, however, with progression. No evidence of interstitial or alveolar infiltrates bilaterally. Pleuro parenchymal thickening and/or scarring within the lingula and the lateral basilar segment left lower lobe. 2.3 cm diameter hiatal hernia with mild circumferential mural thickening; clinical follow-up is recommended. Sclerotic density within the left humeral head and neck suggestive of a bone infarct. Blastic lesion less likely. Recommend correlation with a left shoulder series. Signed by Juana Quick MD 11/30/2016 08:32 P
[2016-11-27] MEDS: IPRATROPIUM 0.5MG/ALBUTEROL 2.5MG INH SOL UD 3ML (DUONEB)(J7620) NEB SCH ×2 (03:57→08:23)
[2016-11-27 07:25] LABS: BASO % 0.6 % (0.0-1.0); EOS # 0.2 K/mm3 (0.0-0.50); EOS % 5.9 % (0.0-3.0); LARGE UNSTAINED CELL # 0.1 K/mm3 (0.0-0.4); LARGE UNSTAINED CELL % 3.8 % (0.0-4.0); LYMPH % 30.5 % (24.0-44.0); MEAN CORPUSCULAR HEMOGLOBIN 27.5 pg (27.0-33.0); MEAN CORPUSCULAR HGB CONC 32.2 g/dl (32.0-36.5); MEAN CORPUSCULAR VOLUME 85.2 fl (80.0-96.0); MONO # 0.2 K/mm3 (0.0-0.8); MONO % 6.8 % (0.0-5.0); NEUTROPHILS # 1.6 K/mm3 (1.8-7.7); NEUTROPHILS % 52.4 % (36.0-66.0); PLATELET COUNT, AUTOMATED 182 k/mm3 (150-450); RED CELL DISTRIBUTION WIDTH 13.7 % (11.5-14.5); WHITE BLOOD COUNT 3.1 K/mm3 (4.0-10.0)
[2016-11-27 07:50] LABS: ALBUMIN 2.6 GM/DL (3.2-5.2); ALBUMIN/GLOBULIN RATIO 0.81 (1.00-1.93); ALKALINE PHOSPHATASE 61 U/L (45-117); ALT/SGPT 14 U/L (12-78); ANION GAP 12 MEQ/L (8-16); AST/SGOT 14 U/L (15-37); BILIRUBIN,TOTAL 0.1 MG/DL (0.2-1.0); BLOOD UREA NITROGEN 7 MG/DL (7-18); CALCIUM LEVEL 8.1 MG/DL (8.5-10.1); CARBON DIOXIDE LEVEL 20 MEQ/L (21-32); CHLORIDE LEVEL 112 MEQ/L (98-107); CREATININE FOR GFR 0.64 MG/DL (0.55-1.02); GLOMERULAR FILTRATION RATE > 60.0 (>51); GLUCOSE, FASTING 105 MG/DL (70-105); MAGNESIUM LEVEL 1.9 MG/DL (1.8-2.4); POTASSIUM SERUM 3.6 MEQ/L (3.5-5.1); SODIUM LEVEL 144 MEQ/L (136-145); TOTAL PROTEIN 5.8 GM/DL (6.4-8.2)
[2016-11-27 08:00] VITALS: BP 137/76
[2016-11-27] MEDS: AZELASTINE 137MCG NASAL SPY 30 ML (ASTELIN) SCH (08:05)
[2016-11-27] MEDS: FLUTICASONE PROP 0.05% NASAL SPRAY 16 GM (FLONASE) SCH (08:05)
[2016-11-27] MEDS: PANTOPRAZOLE 40MG TAB (PROTONIX) PO SCH (08:05)
[2016-11-27] MEDS: ENOXAPARIN 40 MG/0.4 ML SYRINGE (J1650) SC SCH (08:06)
[2016-11-27] MEDS: cefTRIAXone SOD 1 GM in D5W MINI-BAG PLUS 50 ML IV SCH (10:12)
[2016-11-27] MEDS ORDERED: LEVA750T PO (11:03)
[2016-11-27 12:00] VITALS: BP 146/69
--- NOTE | 2016-11-27 13:50 | EDDOCDS ---
Physician Documentation [facility] Name: Malou Castaneda Age: 51 yrs Sex: Female : 1965 Arrival Date: 11/25/2016 Time: 06:12 Bed 10 Private MD: Buck Patel A. Disposition: 11/25/16 11:04 Hospitalization ordered by Rafael Stewart for Inpatient Admission. Preliminary diagnosis is Acute upper respiratory infection, unspecified. - Bed requested for M PED. - Status is Inpatient Admission. mcp - Condition is Stable. - Problem is new. - Symptoms have improved. HPI: 11/25 06:38 This 51 yrs old Female presents to ER via Ambulance with complaints of pc General Illness. 06:38 The history is obtained from the patient. She had been feeling well until when she received the pneumococcal vaccine. She has had fevers, chills, a nonproductive cough, and body aches since. She has nausea and is "deathly afraid of vomiting". She denies any vomiting or diarrhea, symptoms, headache, rashes, joint swellings. The patient has not experienced similar symptoms in the past. The patient has been recently seen by their primary care provider, 6 day(s) ago. Historical: - Allergies: decongestants; histamines; steroids"put my body out of whack"; - Home Meds: 1. albuterol sulfate 1.25 mg/3 mL Inhl nebu 3 mL 4 times per day prn 2. azelastine 137 mcg (0.1 %) nasal spra 2 sprays 2 times per day 3. irbesartan 300 mg oral tab 1 tab once daily 4. nasal steroid spray 5. Prometrium 200 mg oral cap once daily 6. Protonix 40 mg Oral TbEC 1 tab once daily 7. Qvar inhalation 2 puffs 2 times per day 8. vaginal cream 1 gm twice weekly 9. 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 - Social history: Smoking status: Patient states former smoker of tobacco. No barriers to communication noted, The patient speaks fluent Upper Sorbian. - Hospitalizations: : No recent hospitalization is reported. - : The pt / caregiver states he / she is not on anticoagulants. Home medication list is obtained from the patient. - Immunization history:: All immunizations up-to-date. - Exposure Risk Screening:: None identified. - Family history: Not pertinent. - Social history:: the patient is a non-smoker, the patient does not drink alcohol. ROS: 06:38 All systems are negative except as listed. pc Exam: 06:38 General Appearance: no acute distress, alert, anxious. pc 06:38 EENT: normal eye inspection, ears, nose and throat normal, pharynx normal, mucous membranes moist 06:38 Neck: The exam reveals no acute abnormalities. ROM is normal and painless. No nuchal rigidity is noted.. 06:38 Respiratory: no respiratory distress, chest non-tender, Respirations/effort: tachypnea, Breath sounds: wheezing, throughout. 06:38 CVS: regular rhythm, normal S1 and S2, no murmurs, strong peripheral pulses, normal capillary refill, the patient is tachycardic, at 130 bpm. 06:38 Abdomen: soft, non-tender, no organomegaly, normal bowel sounds. 06:38 Back: normal inspection. 06:38 Skin: skin color is normal, warm, dry. 06:38 Extremities: The extremities have a grossly normal appearance, are non-tender, without acute ROM abnormalities. 06:38 Neuro: oriented x 3, cranial nerves normal as tested, no motor deficits, no sensory deficits. 06:38 Psych: normal mood. Vital Signs: 06:23 BP 156 / 84 RA Supine (auto/reg); Pulse 131 MON; Resp 24 S; Temp 102.9(O); Pulse Ox 96% cln on R/A; Pain 10/10; 08:00 Temp 102.6(O); mcp 08:01 BP 139 / 78; Pulse 128; Resp 20; Temp 102.6(O); Pulse Ox 97% on R/A; Pain 5/10; mcp 09:00 Temp 99.8(O); mcp 09:39 Pulse 96; Resp 20; Temp 99.8(O); mcp 11:35 BP 131 / 64; Pulse 111; Resp 20; Temp 98.1(O); Pulse Ox 97% on R/A; Pain 5/10; mcp 12:47 BP 128 / 63; Pulse 98; Resp 20; Temp 98(O); Pulse Ox 96% on R/A; Pain 0/10; mcp MDM: 06:38 IV Saline Lock ordered. pc 06:38 Ondansetron 4 mg IVP once ordered. pc 06:38 NS 0.9% 1000 ml IV at bolus once ordered. pc 06:38 Acetaminophen Tablet 650 mg PO once ordered. pc 06:38 -Blood Culture (Adults Only), peripheral from different site, or from device/port/PICC pc etc. if present ordered. 06:38 Obtain sample by nasopharyngeal swab ordered. pc 06:38 -Blood Culture (Adults Only), peripheral from different site, or from device/port/PICC sew etc. if present complete. 06:38 Differential Diagnosis: fever, cough r/o pneumonia. Plan: labs, meds, CXR. pc 06:39 CBC with Diff Ordered. EDMS 06:39 MED Profile Ordered. EDMS 06:39 -Blood Culture Ordered. EDMS 06:39 -Influenza A&B Rapid Antigen - Nose Ordered. EDMS 06:39 Chest, 2 View (pa\\E\\lat) Ordered. EDMS 06:41 BLOOD CULTURES Ordered. EDMS 06:47 Albuterol 5 mg Nebulizer once ordered. pc 06:47 Call Respiratory ordered. pc 06:54 Call Respiratory complete. nov 07:51 CBC with Diff Reviewed. sd1 07:51 MED Profile Reviewed. sd1 07:51 -Influenza A&B Rapid Antigen - Nose Reviewed. sd1 07:56 Ibuprofen 800 mg PO once ordered. sd1 08:05 Financial registration complete. mm15 08:06 [facility] Payment Agreement was scanned into [employer] and attached to record. mm15 08:35 Lactic Acid (Ivory tube on ice) Ordered. EDMS 09:53 REGULAR+DIET ordered. EDMS 10:33 cefTRIAXone 1 grams IVPB once over 30 mins; dilute in 50mL of NS or D5W ordered. sd1 10:33 azithromycin 500 mg IVPB once over 1 hrs; dilute in 250mL of D5W or NS ordered. sd1 10:34 Lactic Acid (Ivory tube on ice) Reviewed. sd1 11:17 ELECTROCARDIOGRAM ADULT ordered. EDMS 11:17 2 GRAM SODIUM DIET ordered. EDMS 11:17 LEGIONELLA ANTIGEN URINE Ordered. EDMS 11:17 URINE STREP PNEUMONIAE ANTIGEN Ordered. EDMS 11:17 SPUTUM CULTURE AND GRAM STAIN Ordered. EDMS 11:18 Admission / Observation Status ordered. EDMS 11:20 LACTIC ACID LEVEL, LACTATE Ordered. EDMS 0104 09:22 ECG/EKG was scanned into [employer] and attached to record. gb Administered Medications: 11/25 06:58 Drug: Acetaminophen 650 mg [acetaminophen 325 mg tablet (2 tabs)] Route: PO; cf2 08:00 Follow up: Temp 102.6 Oral; Response: Temperature is unchanged [facility] 07:00 Drug: Albuterol 5 mg [albuterol sulfate 2.5 mg/0.5 mL solution for nebulization (1 mL)] bb3 Route: Nebulizer; 07:10 Follow up: lung sounds increased throughout with scattered expiratory wheezes. No bb3 adverse reaction to tx. Pt denies SOB past baseline at rest at this time. 07:26 Drug: Ondansetron 4 mg [ondansetron HCl 2 mg/mL intravenous solution (2 mL)] Route: mcp IVP; Site: left antecubital; 07:26 Drug: NS 0.9% 1000 ml [sodium chloride 0.9 % intravenous solution] Route: IV; Rate: mcp bolus; Site: left antecubital; 11:14 Follow up: IV Status: Completed infusion; IV Intake: 1000ml [facility] 08:01 Drug: Ibuprofen 800 mg [ibuprofen 800 mg tablet (1 tabs)] Route: PO; [facility] 09:00 Follow up: Temp 99.8 Oral; Response: Temperature is decreased [facility] 11:12 Drug: cefTRIAXone 1 grams [ceftriaxone 1 gram solution for injection] Route: IVPB; mcp Infused Over: 30 mins; Site: left antecubital; 11:34 Drug: azithromycin 500 mg [azithromycin 500 mg intravenous solution] Route: IVPB; mcp Infused Over: 1 hrs; Site: left antecubital; Signatures: Dispatcher [employer] EDKS Jorgito Gaitan MD MD pc Delaney-Rowland, Sarah, MD MD sd1 Yarelis Gallardo RN RN kpj Newman, SHYAM Prescott RN, Mary, RN RN [facility] Deanne Parra, Reg Reg Natalia Ramirez Marlynn mm15 Elizabeth Cohen,RN RN ko2 Katarina Way RN RN Harris Chen bb3 Ester Savage RN cf2 The chart was reviewed and I authenticate all verbal orders and agree with the evaluation and treatment provided.Corrections: (The following items were deleted from the chart) 12:28 11:20 Sinuses ordered. EDMS EDMS Attachments: 08:06 [facility] Payment Agreement mm15 11/26 09:22 ECG/EKG gb Chart Complete MTDD
--- NOTE | 2016-11-27 13:50 | EDDOCDS ---
Nurse's Notes [facility] Name: Malou Castaneda Age: 51 yrs Sex: Female : 1965 Arrival Date: 11/25/2016 Time: 06:12 Bed 10 Private MD: Buck Patel A. Diagnosis: Acute upper respiratory infection, unspecified Presentation: 11/25 06:16 Presenting complaint: EMS states: pt hasn't felt good since she go the pneumonia ko2 vaccine on Thursday. She states fever, chills, general weakness and unable to eat. Suicide/Homicide risk assessment- the patient denies having any suicidal and/or homicidal ideations and does not present with any other emotional, behavioral or mental health complaints. Status: Patient is not a creative services designer or dependent. Transition of care: patient was not received from another setting of care. Care prior to arrival: See EMS report. 06:16 Acuity: TAWANNA Level 3 ko2 06:16 Method Of Arrival: Ambulance ko2 07:15 Adult Sepsis Screening: The patient does not have new or worsening altered mentation. mcp Patient's respiratory rate is less than 22. Systolic blood pressure is greater than 100. Patient has a qSOFA score of 0- Negative Sepsis Screen. Triage Assessment: 12:06 HIV screening NA for this visit Offered previously. [facility] Historical: - Allergies: decongestants; histamines; steroids"put my body out of whack"; - Home Meds: 1. albuterol sulfate 1.25 mg/3 mL Inhl nebu 3 mL 4 times per day prn 2. azelastine 137 mcg (0.1 %) nasal spra 2 sprays 2 times per day 3. irbesartan 300 mg oral tab 1 tab once daily 4. nasal steroid spray 5. Prometrium 200 mg oral cap once daily 6. Protonix 40 mg Oral TbEC 1 tab once daily 7. Qvar inhalation 2 puffs 2 times per day 8. vaginal cream 1 gm twice weekly 9. 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 - Social history: Smoking status: Patient states former smoker of tobacco. No barriers to communication noted, The patient speaks fluent Icelandic. - Hospitalizations: : No recent hospitalization is reported. - : The pt / caregiver states he / she is not on anticoagulants. Home medication list is obtained from the patient. - Immunization history:: All immunizations up-to-date. - Exposure Risk Screening:: None identified. - Family history: Not pertinent. - Social history:: the patient is a non-smoker, the patient does not drink alcohol. Screenin:47 Screening information is obtained from the patient. Fall risk: No risks identified. mcp Assistance ADL's: requires no assistance with activities of daily living. Abuse/DV Screen: The patient / caregiver reports he/she is: not in a situation that causes fear, pain or injury. Nutritional screening: No deficits noted. Advance Directives: Currently, there is no health care proxy. There is no active DNR order. There is no Power of Multi Slide Machine Tender. home support is adequate. Assessment: 07:15 General: Appears ill, Behavior is cooperative. Pain: Location: all over Pain currently mcp is 6 out of 10 on a pain scale. Neurological: No deficits noted. Respiratory: Airway is patent Respiratory effort is even, unlabored, Breath sounds are diminished bilaterally. Reports cough that is non-productive, persistent. Derm: Skin is pink, warm & dry. 08:15 General: Appears in no apparent distress, Behavior is cooperative. Pain: Location: face mcp and abdomen Pain currently is 6 out of 10 on a pain scale. Neurological: No deficits noted. Respiratory: Airway is patent Respiratory effort is even, unlabored. GI: Abdomen is obese, Bowel sounds present X 4 quads. Abd is soft X 4 quads. Derm: Skin is pink, warm & dry. 09:15 General: Appears in no apparent distress, Behavior is cooperative. Neurological: No mcp deficits noted. Respiratory: Airway is patent Respiratory effort is even, unlabored. Derm: Skin is pink, warm & dry. 09:15 Adult Sepsis Screening: The patient does not have new or worsening altered mentation. mcp Patient's respiratory rate is less than 22. Systolic blood pressure is greater than 100. Patient has a qSOFA score of 0- Negative Sepsis Screen. 10:15 General: Appears in no apparent distress, Behavior is cooperative. Neurological: No mcp deficits noted. Respiratory: Airway is patent Respiratory effort is even, unlabored. Derm: Skin is moist, Skin is pink, Skin temperature is warm. 11:15 General: Appears in no apparent distress, Behavior is cooperative. Pain: Location: face mcp and abdomen Pain currently is 5 out of 10 on a pain scale. Neurological: No deficits noted. Respiratory: Airway is patent Respiratory effort is even, unlabored. Derm: Skin is pink, warm & dry. 11:15 Adult Sepsis Screening: The patient does not have new or worsening altered mentation. mcp Patient's respiratory rate is less than 22. Systolic blood pressure is greater than 100. Patient has a qSOFA score of 0- Negative Sepsis Screen. 11:35 General: OOB and ambulated to bathroom--gait steady. mcp 12:47 General: Appears in no apparent distress, comfortable, Behavior is cooperative. Pain: mcp Denies pain. Neurological: No deficits noted. Respiratory: Airway is patent Respiratory effort is even, unlabored, Reports cough that is non-productive, persistent. Derm: Skin is pink, warm & dry. Vital Signs: 06:23 BP 156 / 84 RA Supine (auto/reg); Pulse 131 MON; Resp 24 S; Temp 102.9(O); Pulse Ox 96% cln on R/A; Pain 10/10; 08:00 Temp 102.6(O); mcp 08:01 BP 139 / 78; Pulse 128; Resp 20; Temp 102.6(O); Pulse Ox 97% on R/A; Pain 5/10; mcp 09:00 Temp 99.8(O); mcp 09:39 Pulse 96; Resp 20; Temp 99.8(O); mcp 11:35 BP 131 / 64; Pulse 111; Resp 20; Temp 98.1(O); Pulse Ox 97% on R/A; Pain 5/10; mcp 12:47 BP 128 / 63; Pulse 98; Resp 20; Temp 98(O); Pulse Ox 96% on R/A; Pain 0/10; mcp ED Course: 06:13 Patient visited by Natalia Miller. sew 06:13 Patient moved to 10 sew 06:14 Buck Patel is Private Physician. sew 06:14 Patient visited by Natalia Miller. sew 06:18 Ester Savage,RN is Primary Nurse. cf2 06:18 Patient visited by Ester Savage,SHYAM. cf2 06:18 Triage Initiated ko2 06:25 Patient visited by Susanna Fernandes PCA. cln 06:33 Jorgito Gaitan MD is Attending Physician. pc 06:36 Patient visited by Jorgito Gaitan MD. pc 06:58 -Influenza A&B Rapid Antigen - Nose Sent. cf2 06:59 Attending Physician role handed off by Jorgito Gaitan MD sd1 06:59 Naatlia Wilkes MD is Attending Physician. sd1 07:09 Patient visited by Ester Savage RN. cf2 07:20 BLOOD CULTURES Sent. mcp 07:20 -Blood Culture Sent. mcp 07:20 MED Profile Sent. mcp 07:20 CBC with Diff Sent. mcp 07:47 The patient / caregiver is instructed regarding the plan of care and ED course. Patient mcp has correct armband on for positive identification. Placed in gown. Bed in low position. Call light in reach. Side rails up X2. 07:47 Missed attempts: 20 gauge X 1 in right hand. mcp 07:47 Inserted saline lock: 20 gauge in left antecubital area and blood collected. The [facility] patient tolerated the procedure well. Labs drawn. (by ED staff). Sent per order to lab. Labs/Blood culture drawn. 07:48 Patient visited by Christi Lundy RN. mcp 08:02 Patient visited by Christi Lundy RN. mcp 08:06 [facility] Payment Agreement was scanned into [employer] and attached to record. mm15 09:11 Patient visited by Gloria Carpio PCA. ct3 09:38 Lactic Acid (Ivory tube on ice) Sent. mcp 09:38 Labs drawn. (by ED staff). Sent per order to lab. mcp 09:57 Patient visited by Gloria Carpio PCA. ct3 10:06 Patient visited by Abiodun Narvaez. dem1 10:06 Diet: Patient given regular meal. dem1 11:03 Rafael Stewart MD is Hospitalizing Provider. sd1 11:16 Patient visited by Christi Lundy RN. mcp 11:36 Patient visited by Christi Lundy RN. mcp 12:05 No procedures done that require assistance. mcp 12:07 Patient visited by Christi Lundy RN. [facility] 11/26 09:22 ECG/EKG was scanned into [employer] and attached to record. gb Administered Medications: 11/25 06:58 Drug: Acetaminophen 650 mg [acetaminophen 325 mg tablet (2 tabs)] Route: PO; cf2 08:00 Follow up: Temp 102.6 Oral; Response: Temperature is unchanged [facility] 07:00 Drug: Albuterol 5 mg [albuterol sulfate 2.5 mg/0.5 mL solution for nebulization (1 mL)] bb3 Route: Nebulizer; 07:10 Follow up: lung sounds increased throughout with scattered expiratory wheezes. No bb3 adverse reaction to tx. Pt denies SOB past baseline at rest at this time. 07:26 Drug: Ondansetron 4 mg [ondansetron HCl 2 mg/mL intravenous solution (2 mL)] Route: mcp IVP; Site: left antecubital; 07:26 Drug: NS 0.9% 1000 ml [sodium chloride 0.9 % intravenous solution] Route: IV; Rate: mcp bolus; Site: left antecubital; 11:14 Follow up: IV Status: Completed infusion; IV Intake: 1000ml [facility] 08:01 Drug: Ibuprofen 800 mg [ibuprofen 800 mg tablet (1 tabs)] Route: PO; [facility] 09:00 Follow up: Temp 99.8 Oral; Response: Temperature is decreased [facility] 11:12 Drug: cefTRIAXone 1 grams [ceftriaxone 1 gram solution for injection] Route: IVPB; mcp Infused Over: 30 mins; Site: left antecubital; 11:34 Drug: azithromycin 500 mg [azithromycin 500 mg intravenous solution] Route: IVPB; mcp Infused Over: 1 hrs; Site: left antecubital; Intake: 11:14 IV: 1000.00ml; Total: 1000.00ml. [facility] RT: 06:59 Oxygen is room air. Respiratory: Respiratory effort is even, Use of accessory muscles bb3 noted. Respiratory pattern is regular symmetrical, tachypnea Breath sounds are diminished Breath sounds with wheezes bilaterally. at expiration Reports cough that is productive that she thinks she has thrush. Pt states she has not always rinsed mouth after taking QVAR at home. 07:01 Initial Med Neb Given as ordered Patient was instructed and evaluated on procedure. bb3 07:02 Respiratory: Sputum is thick green yellow spontaneously expectorated during neb tx. bb3 small amount. 07:09 Respiratory: lung sounds increased throughout with scattered expiratory wheezes. No bb3 adverse reaction to tx. Pt denies SOB past baseline at rest at this time. Order Results: Lab Order: CBC with Diff; SPEC'M 11/25/16 06:42 Test: WHITE BLOOD COUNT; Value: 6.5; Range: 4.0-10.0; Units: K/mm3; Status: F Test: RED BLOOD COUNT; Value: 4.63; Range: 4.00-5.40; Units: M/mm3; Status: F Test: HEMOGLOBIN; Value: 12.3; Range: 12.0-16.0; Units: g/dl; Status: F Test: HEMATOCRIT; Value: 38.7; Range: 36.0-47.0; Units: %; Status: F Test: MEAN CORPUSCULAR VOLUME; Value: 83.6; Range: 80.0-96.0; Units: fl; Status: F Test: MEAN CORPUSCULAR HEMOGLOBIN; Value: 26.5; Range: 27.0-33.0; Abnormal: Below low normal; Units: pg; Status: F Test: MEAN CORPUSCULAR HGB CONC; Value: 31.7; Range: 32.0-36.5; Abnormal: Below low normal; Units: g/dl; Status: F Test: RED CELL DISTRIBUTION WIDTH; Value: 14.4; Range: 11.5-14.5; Units: %; Status: F Test: PLATELET COUNT, AUTOMATED; Value: 221; Range: 150-450; Units: k/mm3; Status: F Test: NEUTROPHILS %; Value: 84.1; Range: 36.0-66.0; Abnormal: Above high normal; Units: %; Status: F Test: LYMPH %; Value: 9.1; Range: 24.0-44.0; Abnormal: Below low normal; Units: %; Status: F Test: MONO %; Value: 3.5; Range: 0.0-5.0; Units: %; Status: F Test: EOS %; Value: 1.3; Range: 0.0-3.0; Units: %; Status: F Test: BASO %; Value: 0.8; Range: 0.0-1.0; Units: %; Status: F Test: LARGE UNSTAINED CELL %; Value: 1.1; Range: 0.0-4.0; Units: %; Status: F Test: NEUTROPHILS #; Value: 5.5; Range: 1.8-7.7; Units: K/mm3; Status: F Test: LYMPH #; Value: 0.7; Range: 1.5-4.5; Abnormal: Below low normal; Units: K/mm3; Status: F Test: MONO #; Value: 0.2; Range: 0.0-0.8; Units: K/mm3; Status: F Test: EOS #; Value: 0.1; Range: 0.0-0.50; Units: K/mm3; Status: F Test: BASO #; Value: 0.0; Range: 0.0-0.2; Units: K/mm3; Status: F Test: LARGE UNSTAINED CELL #; Value: 0.1; Range: 0.0-0.4; Units: K/mm3; Status: F Lab Order: MED Profile; SPEC'M 11/25/16 06:41 Test: GLUCOSE, FASTING; Value: 128; Range: 70-105; Abnormal: Above high normal; Units: MG/DL; Status: F Test: BLOOD UREA NITROGEN; Value: 8; Range: 7-18; Units: MG/DL; Status: F Test: CREATININE FOR GFR; Value: 0.99; Range: 0.55-1.02; Units: MG/DL; Status: F Test: GLOMERULAR FILTRATION RATE; Value: > 60.0; Range: >51; Status: F Test: SODIUM LEVEL; Value: 142; Range: 136-145; Units: MEQ/L; Status: F Test: POTASSIUM SERUM; Value: 3.5; Range: 3.5-5.1; Units: MEQ/L; Status: F Test: CHLORIDE LEVEL; Value: 106; Range: 98-107; Units: MEQ/L; Status: F Test: CARBON DIOXIDE LEVEL; Value: 26; Range: 21-32; Units: MEQ/L; Status: F Test: ANION GAP; Value: 10; Range: 8-16; Units: MEQ/L; Status: F Test: CALCIUM LEVEL; Value: 8.4; Range: 8.5-10.1; Abnormal: Below low normal; Units: MG/DL; Status: F Test Note: ; Units are mL/min/1.73 m2 Chronic Kidney Disease Staging per NKF: Stage I & II GFR >=60 Normal to Mildly Decreased Stage III GFR 30-59 Moderately Decreased Stage IV GFR 15-29 Severely Decreased Stage V GFR <15 Very Little GFR Left ESRD GFR <15 on ADJUSTMENT SUPERVISOR Lab Order: -Influenza A&B Rapid Antigen - Nose; SPEC'M 11/25/16 06:42 Test: INFLUENZA A RAPID SCR by ICA; Value: INFLUENZA A RESULTS NEGATIVE; Status: F Test: INFLUENZA A RAPID SCR by ICA; Value: Comments:; Status: F Test: INFLUENZA B RAPID SCR by ICA; Value: INFLUENZA B RESULTS NEGATIVE; Status: F Test Note: ; The Influenza test is a direct rapid immunoassay for the qualitative detection of Influenza viral antigen. Cell culture (Viral Culture) testing should be considered to confirm NEGATIVE results and to assist in detecting other viruses that can provide similar clinical symptoms. Please contact the lab within 24 hours ([phone]) if confirmatory testing is desired. Lab Order: Lactic Acid (Ivory tube on ice); SPEC'M 11/25/16 09:36 Test: LACTIC ACID LEVEL, LACTATE; Value: 3.0; Range: 0.4-2.0; Abnormal: Above upper panic limits; Units: MMOL/L; Status: F Outcome: 11:04 Decision to Hospitalize by Provider. sd1 12:47 Discharge Assessment: patient administered narcotics - no. The following High Risk [facility] Discharge criteria are identified: None. Admitted to Pediatrics accompanied by tech, via stretcher, with chart. Condition: stable. No special radiology studies were completed. Property :Personal belongings accompany Pt. 12:48 Patient left the ED. [facility] Signatures: Jorgito Gaitan MD MD pc Delaney-Rowland, Sarah, MD MD sd1 Christi Lundy RN RN [facility] Deanne Parra, Ramiro Reg Harris Hernandez bb3 Gloria Carpio, APPLICATION DESIGNER APPLICATION DESIGNER ct3 Abiodun Narvaez dem1 Natalia Miller Marlynn mm15 Elizabeth Cohen RN RN ko2 Susanna Fernandes, APPLICATION DESIGNER APPLICATION DESIGNER petarn Ester SavageRN RN cf2 Corrections: (The following items were deleted from the chart) 07:04 06:59 Respiratory: Respiratory effort is even, Use of accessory muscles noted. bb3 Respiratory pattern is regular symmetrical, tachypnea Breath sounds are diminished Breath sounds with wheezes bilaterally. at expiration Reports cough that is productive bb3 11:13 09:39 Temp 99.8F Oral; mcp mcp Chart Complete MTDD
--- NOTE | 2016-11-27 13:50 | EDDOCDS ---
Physician Documentation [facility] Name: Malou Castaneda Age: 51 yrs Sex: Female : 1965 Arrival Date: 11/25/2016 Time: 06:12 Bed 10 Private MD: Buck Patel A. Disposition: 11/25/16 11:04 Hospitalization ordered by Rafael Stewart for Inpatient Admission. Preliminary diagnosis is Acute upper respiratory infection, unspecified. - Bed requested for M PED. - Status is Inpatient Admission. mcp - Condition is Stable. - Problem is new. - Symptoms have improved. HPI: 11/25 06:38 This 51 yrs old Female presents to ER via Ambulance with complaints of pc General Illness. 06:38 The history is obtained from the patient. She had been feeling well until when she received the pneumococcal vaccine. She has had fevers, chills, a nonproductive cough, and body aches since. She has nausea and is "deathly afraid of vomiting". She denies any vomiting or diarrhea, symptoms, headache, rashes, joint swellings. The patient has not experienced similar symptoms in the past. The patient has been recently seen by their primary care provider, 6 day(s) ago. Historical: - Allergies: decongestants; histamines; steroids"put my body out of whack"; - Home Meds: 1. albuterol sulfate 1.25 mg/3 mL Inhl nebu 3 mL 4 times per day prn 2. azelastine 137 mcg (0.1 %) nasal spra 2 sprays 2 times per day 3. irbesartan 300 mg oral tab 1 tab once daily 4. nasal steroid spray 5. Prometrium 200 mg oral cap once daily 6. Protonix 40 mg Oral TbEC 1 tab once daily 7. Qvar inhalation 2 puffs 2 times per day 8. vaginal cream 1 gm twice weekly 9. 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 - Social history: Smoking status: Patient states former smoker of tobacco. No barriers to communication noted, The patient speaks fluent Yakut. - Hospitalizations: : No recent hospitalization is reported. - : The pt / caregiver states he / she is not on anticoagulants. Home medication list is obtained from the patient. - Immunization history:: All immunizations up-to-date. - Exposure Risk Screening:: None identified. - Family history: Not pertinent. - Social history:: the patient is a non-smoker, the patient does not drink alcohol. ROS: 06:38 All systems are negative except as listed. pc Exam: 06:38 General Appearance: no acute distress, alert, anxious. pc 06:38 EENT: normal eye inspection, ears, nose and throat normal, pharynx normal, mucous membranes moist 06:38 Neck: The exam reveals no acute abnormalities. ROM is normal and painless. No nuchal rigidity is noted.. 06:38 Respiratory: no respiratory distress, chest non-tender, Respirations/effort: tachypnea, Breath sounds: wheezing, throughout. 06:38 CVS: regular rhythm, normal S1 and S2, no murmurs, strong peripheral pulses, normal capillary refill, the patient is tachycardic, at 130 bpm. 06:38 Abdomen: soft, non-tender, no organomegaly, normal bowel sounds. 06:38 Back: normal inspection. 06:38 Skin: skin color is normal, warm, dry. 06:38 Extremities: The extremities have a grossly normal appearance, are non-tender, without acute ROM abnormalities. 06:38 Neuro: oriented x 3, cranial nerves normal as tested, no motor deficits, no sensory deficits. 06:38 Psych: normal mood. Vital Signs: 06:23 BP 156 / 84 RA Supine (auto/reg); Pulse 131 MON; Resp 24 S; Temp 102.9(O); Pulse Ox 96% cln on R/A; Pain 10/10; 08:00 Temp 102.6(O); mcp 08:01 BP 139 / 78; Pulse 128; Resp 20; Temp 102.6(O); Pulse Ox 97% on R/A; Pain 5/10; mcp 09:00 Temp 99.8(O); mcp 09:39 Pulse 96; Resp 20; Temp 99.8(O); mcp 11:35 BP 131 / 64; Pulse 111; Resp 20; Temp 98.1(O); Pulse Ox 97% on R/A; Pain 5/10; mcp 12:47 BP 128 / 63; Pulse 98; Resp 20; Temp 98(O); Pulse Ox 96% on R/A; Pain 0/10; mcp MDM: 06:38 IV Saline Lock ordered. pc 06:38 Ondansetron 4 mg IVP once ordered. pc 06:38 NS 0.9% 1000 ml IV at bolus once ordered. pc 06:38 Acetaminophen Tablet 650 mg PO once ordered. pc 06:38 -Blood Culture (Adults Only), peripheral from different site, or from device/port/PICC pc etc. if present ordered. 06:38 Obtain sample by nasopharyngeal swab ordered. pc 06:38 -Blood Culture (Adults Only), peripheral from different site, or from device/port/PICC sew etc. if present complete. 06:38 Differential Diagnosis: fever, cough r/o pneumonia. Plan: labs, meds, CXR. pc 06:39 CBC with Diff Ordered. EDMS 06:39 MED Profile Ordered. EDMS 06:39 -Blood Culture Ordered. EDMS 06:39 -Influenza A&B Rapid Antigen - Nose Ordered. EDMS 06:39 Chest, 2 View (pa\\E\\lat) Ordered. EDMS 06:41 BLOOD CULTURES Ordered. EDMS 06:47 Albuterol 5 mg Nebulizer once ordered. pc 06:47 Call Respiratory ordered. pc 06:54 Call Respiratory complete. nov 07:51 CBC with Diff Reviewed. sd1 07:51 MED Profile Reviewed. sd1 07:51 -Influenza A&B Rapid Antigen - Nose Reviewed. sd1 07:56 Ibuprofen 800 mg PO once ordered. sd1 08:05 Financial registration complete. mm15 08:06 [facility] Payment Agreement was scanned into [employer] and attached to record. mm15 08:35 Lactic Acid (Ivory tube on ice) Ordered. EDMS 09:53 REGULAR+DIET ordered. EDMS 10:33 cefTRIAXone 1 grams IVPB once over 30 mins; dilute in 50mL of NS or D5W ordered. sd1 10:33 azithromycin 500 mg IVPB once over 1 hrs; dilute in 250mL of D5W or NS ordered. sd1 10:34 Lactic Acid (Ivory tube on ice) Reviewed. sd1 11:17 ELECTROCARDIOGRAM ADULT ordered. EDMS 11:17 2 GRAM SODIUM DIET ordered. EDMS 11:17 LEGIONELLA ANTIGEN URINE Ordered. EDMS 11:17 URINE STREP PNEUMONIAE ANTIGEN Ordered. EDMS 11:17 SPUTUM CULTURE AND GRAM STAIN Ordered. EDMS 11:18 Admission / Observation Status ordered. EDMS 11:20 LACTIC ACID LEVEL, LACTATE Ordered. EDMS 0104 09:22 ECG/EKG was scanned into [employer] and attached to record. gb Administered Medications: 11/25 06:58 Drug: Acetaminophen 650 mg [acetaminophen 325 mg tablet (2 tabs)] Route: PO; cf2 08:00 Follow up: Temp 102.6 Oral; Response: Temperature is unchanged [facility] 07:00 Drug: Albuterol 5 mg [albuterol sulfate 2.5 mg/0.5 mL solution for nebulization (1 mL)] bb3 Route: Nebulizer; 07:10 Follow up: lung sounds increased throughout with scattered expiratory wheezes. No bb3 adverse reaction to tx. Pt denies SOB past baseline at rest at this time. 07:26 Drug: Ondansetron 4 mg [ondansetron HCl 2 mg/mL intravenous solution (2 mL)] Route: mcp IVP; Site: left antecubital; 07:26 Drug: NS 0.9% 1000 ml [sodium chloride 0.9 % intravenous solution] Route: IV; Rate: mcp bolus; Site: left antecubital; 11:14 Follow up: IV Status: Completed infusion; IV Intake: 1000ml [facility] 08:01 Drug: Ibuprofen 800 mg [ibuprofen 800 mg tablet (1 tabs)] Route: PO; [facility] 09:00 Follow up: Temp 99.8 Oral; Response: Temperature is decreased [facility] 11:12 Drug: cefTRIAXone 1 grams [ceftriaxone 1 gram solution for injection] Route: IVPB; mcp Infused Over: 30 mins; Site: left antecubital; 11:34 Drug: azithromycin 500 mg [azithromycin 500 mg intravenous solution] Route: IVPB; mcp Infused Over: 1 hrs; Site: left antecubital; Signatures: Dispatcher [employer] EDPR Jorgito Gaitan MD MD pc Delaney-Rowland, Sarah, MD MD sd1 Yarelis Gallardo RN RN kpj Newman, SHYAM Prescott RN, Mary, RN RN [facility] Deanne Parra, Reg Reg Natalia Ramirez Marlynn mm15 Elizabeth Cohen,RN RN ko2 Katarina Way RN RN Harris Chen bb3 Ester Savage RN cf2 The chart was reviewed and I authenticate all verbal orders and agree with the evaluation and treatment provided.Corrections: (The following items were deleted from the chart) 12:28 11:20 Sinuses ordered. EDMS EDMS Attachments: 08:06 [facility] Payment Agreement mm15 11/26 09:22 ECG/EKG gb Chart Complete MTDD
--- NOTE | 2016-11-27 16:38 | ECGEPIP ---
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
--- NOTE | 2016-11-27 20:57 | DSES ---
DATE OF ADMISSION: 11/25/2016 DATE OF DISCHARGE: 11/27/2016 PRIMARY CARE PHYSICIAN: Dr. Buck Patel REFERRING PHYSICIAN: None. CONSULTING PHYSICIAN: None. CONDITION ON DISCHARGE: Stable. FINAL DIAGNOSIS: Sepsis secondary to possible bronchitis versus possible sinusitis. PROCEDURES: None. HISTORY OF PRESENT ILLNESS: Patient is a 51-year-old female with a past medical history of chronic sinusitis, status post three surgeries on the right side, scheduled for surgery on the left side, gastroesophageal reflux disease (GERD), hypertension, asthma, and Usher syndrome, type 2, who presented to the emergency room with complaints of productive cough. Patient was admitted for sepsis secondary to community-acquired pneumonia/bronchitis/sinusitis. Her lactic acid was initially elevated in the emergency room and has been trending down throughout the hospital course. HOSPITAL COURSE: 1. Sepsis possibly secondary to community-acquired pneumonia or bronchitis, possibly sinusitis. Less likely community acquired pneumonia. Clinically, has productive cough with yellow sputum and fevers at home and in the emergency room and inpatient. Patient had a temperature maximum on November 26 and has remained afebrile in the last 12 hours. Patient initially had an elevated lactic acid and has been trending down with intravenous (IV) fluid hydration. Chest x-ray has been negative. Patient had a CT scan done of her chest, which revealed no pathophysiologic enlargement of mediastinal or hilar adenopathy. No evidence of interstitial or alveolar infiltrates bilaterally. There was pleural parenchymal thickening and/or scarring within the lingula and the lateral basilar segment of the left lower lobe. A 2.3 cm dilated hiatal hernia with only mild mural thickening. Patient also had an x-ray of her sinuses, which revealed trace mucosal thickening of the ethmoid, maxillary, and sphenoid sinuses. No air-fluid levels are noted. Patient had blood cultures, sputum cultures, and Streptococcus pneumoniae, Legionella urine antigens. Blood cultures have remained negative. Influenza has remained negative. Sputum cultures revealed normal chaya. The patient had a rapid streptococcus completed, which was negative. Patient was initially put of ceftriaxone and azithromycin for about 3 days. Upon discharge, she had been transitioned to Levaquin. 2. Dyspnea, likely secondary to #1, improving. No evidence of wheezing on physical exam. 3. Chronic sinusitis. Most recent antibiotic use was in September. She is status post right-sided surgery times three, scheduled for left-sided surgery in November. 4. Hypertension. The patient was controlled. She will continue with aspirin with holding parameters. 5. Asthma. Will continue with DuoNeb. 6. Usher syndrome, type 2. 7. Gastroesophageal reflux disease (GERD). Continue with Protonix. 8. Deep vein thrombosis (DVT) prophylaxis. Will continue with Lovenox. DISCHARGE MEDICATIONS: The patient will be discharged home with the following: - albuterol inhaled every 4 hours as needed for shortness of breath - azelastine two sprays in each nostril twice a day - beclomethasone 80 mcg inhaled twice a day - conjugated estrogen 1 gram per vagina every 2 weeks - fluticasone two sprays in each nostril twice a day - irbesartan 150 mg by mouth daily - Protonix 40 mg by mouth daily - Restasis 0.05% in each eye twice a day New medications include Levaquin 750 mg by mouth daily for the next 8 days. DISCHARGE INSTRUCTIONS: Patient was advised to follow with her primary care provider within the next 7 days. She has been advised to remain compliant with treatment and medications and return to the emergency room if she experiences any problems. TIME SPENT ON DISCHARGE: 35 minutes.
[2016-11-29 00:06] LABS: ORGANISM ID Not indicated. (.); SPECIMEN SOURCE Urine (.)
== END 2016-11-27 12:45 | disposition home or self-care (01) | DRG 872 ==
LOC: M ED 06:12 → M ED INP 11:13 → M PED 12:53
PROVIDERS: ADMIT Internal Medicine; ATTEND Internal Medicine
DX: A41.9 Sepsis, unspecified organism (principal); E87.2 Acidosis; J20.9 Acute bronchitis, unspecified; H35.50 Unspecified hereditary retinal dystrophy; J32.9 Chronic sinusitis, unspecified; K21.9 Gastro-esophageal reflux disease without esophagitis; I10 Essential (primary) hypertension; J45.909 Unspecified asthma, uncomplicated; Z79.899 Other long term (current) drug therapy

== ENCOUNTER → 2016-12-22 | Outpatient (CLI) | payer MEDICARE, MEDICAID ==
[~2016-12-22] VITALS: Ht 160 cm; Wt 111.1 kg
[~2016-12-22] MED LIST: ALBU83IN INH; AZEL0.1S3; CETI10TA PO; ESTR62CR PV; FLUT1SPR2; IRBE150T12 PO; LEVA750T PO; LIDOCAINE 2% INJ 100 MG/5 ML SDV (FOR ANES.) As Ordered ONE; NS 1,000 ML IV SCH; PROM200C5 PO; PROPOFOL 200 MG/20 ML VIAL As Ordered ONE; PROT1TAB2 PO; QVAR80AE7 INH; REST0.05 OU; XOPEAER INH
--- NOTE | 2016-12-22 15:02 | ROOR ---
Patient Name: Malou Castaneda Procedure Date: 12/22/2016 2:53 PM Date of : 1965 Age: 51 Room: [facility] Gender: Female Note Status: Finalized Procedure: Upper GI endoscopy Indications: Heartburn Providers: Octavio LOERA MD Referring MD: Buck Patel MD Requesting Provider: Medicines: Monitored Anesthesia Care Complications: No immediate complications. Procedure: Pre-Anesthesia Assessment: - The heart rate, respiratory rate, oxygen saturations, blood pressure, adequacy of pulmonary ventilation, and response to care were monitored throughout the procedure. The Endoscope was introduced through the mouth, and advanced to the second part of duodenum. The upper GI endoscopy was accomplished without difficulty. The patient tolerated the procedure well. Findings: Very small (insignificant) Hiatal Hernia. The esophagus was normal. The stomach was normal. The examined duodenum was normal. Impression: - Very small (insignificant) Hiatal Hernia. - Normal esophagus. - Normal stomach. - Normal examined duodenum. - No specimens collected. Recommendation: - Follow an antireflux regimen. - Observe patient's clinical course. - Continue present medications. Octavio Loera MD Octavio LOERA MD 12/22/2016 3:02:10 PM This report has been signed electronically. Number of Addenda: 0 Note Initiated On: 12/22/2016 2:53 PM Estimated Blood Loss: Estimated blood loss: none.
[2016-12-22 15:38] VITALS: BP 147/96
== END ==
LOC: M OPP 13:00
PROVIDERS: ATTEND Internal Medicine Gastroenterology
DX: R12 Heartburn (principal); I10 Essential (primary) hypertension; K21.9 Gastro-esophageal reflux disease without esophagitis; J30.81 Allergic rhinitis due to animal (cat) (dog) hair and dander; Z79.899 Other long term (current) drug therapy; Z88.8 Allergy status to other drugs, medicaments and biological substances

== ENCOUNTER → 2016-12-30 | Outpatient (CLI) | payer MEDICARE, MEDICAID ==
[~2016-12-30] MED LIST changes: -LIDOCAINE 2% INJ 100 MG/5 ML SDV (FOR ANES.) As Ordered ONE; +METHACHOLINE KIT (J7674) INH ONE; -NS 1,000 ML IV SCH; -PROPOFOL 200 MG/20 ML VIAL As Ordered ONE
== END | disposition home or self-care (01) ==
LOC: M CARPUL 10:46
PROVIDERS: ATTEND Internal Medicine Pulmonary Disease
DX: J47.0 Bronchiectasis with acute lower respiratory infection (principal)
CPT/HCPCS: 94070; 95070; J7674

== ENCOUNTER 2017-01-07 23:06 | Emergency (ER) | payer MEDICARE, MEDICAID ==
[~2017-01-07 23:06] MED LIST changes: -METHACHOLINE KIT (J7674) INH ONE
[2017-01-08 00:28] LABS: BASO % 0.1 % (0.0-1.0); EOS # 0.2 K/mm3 (0.0-0.50); EOS % 1.8 % (0.0-3.0); LARGE UNSTAINED CELL # 0.1 K/mm3 (0.0-0.4); LARGE UNSTAINED CELL % 0.7 % (0.0-4.0); LYMPH # 0.6 K/mm3 (1.5-4.5); LYMPH % 5.1 % (24.0-44.0); MEAN CORPUSCULAR HEMOGLOBIN 27.6 pg (27.0-33.0); MEAN CORPUSCULAR HGB CONC 33.3 g/dl (32.0-36.5); MEAN CORPUSCULAR VOLUME 82.9 fl (80.0-96.0); MONO # 0.3 K/mm3 (0.0-0.8); MONO % 2.1 % (0.0-5.0); NEUTROPHILS % 90.2 % (36.0-66.0); PLATELET COUNT, AUTOMATED 262 k/mm3 (150-450); WHITE BLOOD COUNT 12.2 K/mm3 (4.0-10.0)
[2017-01-08 00:55] LABS: ALBUMIN 3.8 GM/DL (3.2-5.2); ALBUMIN/GLOBULIN RATIO 0.86 (1.00-1.93); ALKALINE PHOSPHATASE 74 U/L (45-117); ALT/SGPT 19 U/L (12-78); AMYLASE 62 U/L (25-115); ANION GAP 11 MEQ/L (8-16); AST/SGOT 11 U/L (15-37); BILIRUBIN,DIRECT < 0.1 MG/DL (0.0-0.2); BILIRUBIN,TOTAL 0.4 MG/DL (0.2-1.0); BLOOD UREA NITROGEN 14 MG/DL (7-18); CARBON DIOXIDE LEVEL 22 MEQ/L (21-32); CHLORIDE LEVEL 105 MEQ/L (98-107); CREATININE FOR GFR 0.86 MG/DL (0.55-1.02); GLOMERULAR FILTRATION RATE > 60.0 (>51); GLUCOSE, FASTING 137 MG/DL (70-105); POTASSIUM SERUM 3.9 MEQ/L (3.5-5.1); SODIUM LEVEL 138 MEQ/L (136-145); TOTAL PROTEIN 8.2 GM/DL (6.4-8.2)
[2017-01-08] MEDS ORDERED: HALOPERIDOL 5 MG/ML VIAL (J1630) As Ordered ONE (00:56)
[2017-01-08] MEDS ORDERED: diphenhydrAMINE INJ 50MG/ML VIAL (J1200) As Ordered ONE (00:56)
--- NOTE | 2017-01-08 02:58 | EDDOCDS ---
Physician Documentation [facility] Name: Malou Castaneda Age: 51 yrs Sex: Female : 1965 Arrival Date: 01/07/2017 Time: 23:06 Bed 12 Private MD: Buck Patel A. Disposition: 01/08/17 02:32 Discharged to Home/Self Care. Impression: Vomiting, Noninfective gastroenteritis and colitis, unspecified. - Condition is Stable. - Discharge Instructions: Clear Liquid Diet. - Medication Reconciliation, Local Pharmacy Hours form. - Follow up: Buck Patel; When: Call to arrange an appointment; Reason: Recheck today's complaints. - Problem is new. - Symptoms have improved. Historical: - Allergies: decongestants; histamines; steroids"put my body out of whack"; - Home Meds: 1. albuterol sulfate 1.25 mg/3 mL Inhl nebu 3 mL 4 times per day prn 2. azelastine 137 mcg (0.1 %) nasal spra 2 sprays 2 times per day 3. irbesartan 300 mg oral tab 1 tab once daily 4. nasal steroid spray 5. Prometrium 200 mg oral cap once daily 6. Protonix 40 mg Oral TbEC 1 tab once daily 7. Qvar inhalation 2 puffs 2 times per day 8. vaginal cream 1 gm twice weekly 9. 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 No barriers to communication noted, The patient speaks fluent Lithuanian, Speaks appropriately for age. - Family history: Not pertinent. - : The pt / caregiver states he / she is not on anticoagulants. Home medication list is obtained from the patient. - Exposure Risk Screening:: None identified. 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 3 in. (160.02 cm) (R); Pain 7/10; 01/08 02:47 BP 141 / 72; Pulse 101; Resp 18; Temp 100.3(TE); Pulse Ox 97% on R/A; Pain 0/10; mdr 01/07 23:10 Body Mass Index 43.22 (110.68 kg, 160.02 cm) gr2 MDM: 00:04 Chest, 2 View (pa\\E\\lat) Ordered. EDMS 00:04 IV Saline Lock ordered. cs11 00:04 NS 0.9% 500 ml IV at bolus once ordered. cs11 00:05 CBC with Diff Ordered. EDMS 00:05 MED Profile Ordered. EDMS 00:05 Liver Profile Ordered. EDMS 00:05 Amylase Ordered. EDMS 00:05 Lipase Ordered. EDMS 00:05 Urinalysis Ordered. EDMS 00:05 Urine Culture Ordered. EDMS 00:23 Financial registration complete. hs2 00:29 [facility] Payment Agreement was scanned into [employer] and attached to record. hs2 00:33 CBC with Diff Reviewed. cs11 00:41 Haloperidol 2.5 mg IVP once ordered. cs11 00:41 diphenhydrAMINE 12.5 mg IVP once ordered. cs11 01:04 MED Profile Reviewed. cs11 01:04 Liver Profile Reviewed. cs11 01:04 Amylase Reviewed. cs11 01:04 Lipase Reviewed. cs11 [facility] ordered. cs11 02:02 Urinalysis Reviewed. cs11 Administered Medications: 00:31 Drug: NS 0.9% 500 ml [sodium chloride 0.9 % intravenous solution] Route: IV; Rate: tm5 bolus; Site: right hand; 01:00 Follow up: IV Status: Completed infusion; IV Intake: 500ml tm5 01:00 Drug: Haloperidol 2.5 mg [haloperidol lactate 5 mg/mL injection solution (0.5 mL)] tm5 Route: IVP; Site: right hand; 38 Follow up: Response: Nausea is resolved; No Adverse Reaction tm5 01:00 Drug: diphenhydrAMINE 12.5 mg [diphenhydramine 50 mg/mL injection solution (0.25 mL)] tm5 Route: IVP; Site: right hand; 38 Follow up: Response: Nausea is resolved; No Adverse Reaction tm5 Signatures: Dispatcher [employer] EDAravind Asher, DO cs11 Mata ResendizRN RN jmb Chula Mcclellan, Reg Reg hs2 Pam Bell RN RN tm5 The chart was reviewed and I authenticate all verbal orders and agree with the evaluation and treatment provided.Attachments: 00:29 [facility] Payment Agreement hs2 MTDD
--- NOTE | 2017-01-08 02:58 | EDDOCDS ---
Nurse's Notes [facility] Name: Malou Castaneda Age: 51 yrs Sex: Female : 1965 Arrival Date: 01/07/2017 Time: 23:06 Bed 12 Private MD: Buck Patel A. Diagnosis: Vomiting;Noninfective gastroenteritis and colitis, unspecified Presentation: 01/07 23:17 Presenting complaint: Patient states: Patient reports that she called 911 because she jmb lives alone. Patient reports vomiting up enough to fill up mop bucket. Patient reports that she believes it is a reaction to the grapefruit she ate with her medication. Patient reports that she just needs to make sure she doesn't have an infection in her body since she was recently discharged on the from the hospital. Adult Sepsis Screening: The patient does not have new or worsening altered mentation. Patient's respiratory rate is less than 22. Systolic blood pressure is greater than 100. Patient has a qSOFA score of 0- Negative Sepsis Screen. Suicide/Homicide risk assessment- the patient denies having any suicidal and/or homicidal ideations and does not present with any other emotional, behavioral or mental health complaints. Status: Patient is not a health services administrator or dependent. Transition of care: patient was not received from another setting of care. 23:17 Acuity: TAWANNA Level 3 [facility] 23:17 Method Of Arrival: Ambulance [facility] Triage Assessment: 23:20 General: Appears in no apparent distress, Behavior is appropriate for age, cooperative. [facility] General: prior to triage and all during triage patient texting on cell phone.. Pain: Denies pain. HIV screening NA for this visit Offered previously. Neurological: Level of Consciousness is awake, alert, obeys commands, Oriented to person, place, time, Speech is normal, Facial symmetry appears normal, Facial symmetry: tongue is midline. Respiratory: Airway is patent Respiratory effort is even, unlabored, Respiratory pattern is regular, symmetrical. GI: Abdomen is non- distended. Derm: Skin is pink, warm & dry. Musculoskeletal: Range of motion intact in all extremities. MEAT SELECTOR: 23:20 LMP 01/05/2017 [facility] Historical: - Allergies: decongestants; histamines; steroids"put my body out of whack"; - Home Meds: 1. albuterol sulfate 1.25 mg/3 mL Inhl nebu 3 mL 4 times per day prn 2. azelastine 137 mcg (0.1 %) nasal spra 2 sprays 2 times per day 3. irbesartan 300 mg oral tab 1 tab once daily 4. nasal steroid spray 5. Prometrium 200 mg oral cap once daily 6. Protonix 40 mg Oral TbEC 1 tab once daily 7. Qvar inhalation 2 puffs 2 times per day 8. vaginal cream 1 gm twice weekly 9. 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 No barriers to communication noted, The patient speaks fluent Czech, Speaks appropriately for age. - Family history: Not pertinent. - : The pt / caregiver states he / she is not on anticoagulants. Home medication list is obtained from the patient. - Exposure Risk Screening:: None identified. Screenin/16 00:31 Screening information is obtained from the patient. Fall risk: No risks identified. tm5 Assistance ADL's: requires no assistance with activities of daily living. Abuse/DV Screen: The patient / caregiver reports he/she is: not in a situation that causes fear, pain or injury. Nutritional screening: No deficits noted. Advance Directives: There is no active DNR order. home support is adequate. Assessment: 00:02 General: pt transported to her room via wheelchair & is very talkative on her cell tm5 phone . 00:31 General: Appears in no apparent distress, Behavior is appropriate for age, cooperative. tm5 Pain: Location: abdomen Pain currently is 5 out of 10 on a pain scale. Quality of pain is described as crampy. Neurological: Level of Consciousness is awake, alert, Oriented to person, place, time. Respiratory: Airway is patent Respiratory effort is even, unlabored, Respiratory pattern is regular, symmetrical, Breath sounds are clear bilaterally. GI: Abdomen is obese, Bowel sounds present X 4 quads. Abd is soft and non tender X 4 quads. Reports nausea, vomiting. : No deficits noted. Derm: Skin is pink, warm & dry. 01:29 Reassessment: Patient appears in no apparent distress at this time. Patient states tm5 feeling better. Patient states symptoms have improved. 02:55 Reassessment: Patient appears in no apparent distress at this time. Patient states tm5 feeling better. Patient states symptoms have improved. Vital Signs: 01/07 23:10 BP 135 / 78; Pulse 104; Resp 18 S; Temp 98.7(O); Pulse Ox 95% on R/A; Weight 110.68 kg gr2 (R); Height 5 ft. 3 in. (160.02 cm) (R); Pain 7/10; 01/08 02:47 BP 141 / 72; Pulse 101; Resp 18; Temp 100.3(TE); Pulse Ox 97% on R/A; Pain 0/10; mdr 01/07 23:10 Body Mass Index 43.22 (110.68 kg, 160.02 cm) gr2 Vitals: 01/07 23:10 Log In Time: January 07, 2017 at 23:10. gr2 ED Course: 23:09 Patient visited by Joann Moore. gr2 23:09 Buck Patel is Private Physician. gr2 23:09 Patient moved to Waiting gr2 23:11 Patient visited by Joann Moore. gr2 23:11 Patient moved to Pre RCE gr2 23:18 Triage Initiated jmb 23:59 Patient moved to 12 b 01/08 00:02 Aravind Desouza DO is Attending Physician. cs11 00:02 Patient visited by Aravind Desouza DO. cs11 00:02 Patient visited by Pam Bell RN. tm5 00:29 [facility] Payment Agreement was scanned into [employer] and attached to record. hs2 00:31 Awaiting ED physician evaluation. tm5 00:31 The patient / caregiver is instructed regarding the plan of care and ED course. tm5 00:31 Inserted saline lock: 20 gauge in right hand and blood collected. The patient tolerated tm5 the procedure well. Labs drawn. (by ED staff). Sent per order to lab. 01:29 Patient visited by Pam Bell RN. tm5 01:38 Patient visited by Pam Bell RN. tm5 01:38 Urine Culture Sent. tm5 01:38 Urinalysis Sent. tm5 02:18 Patient visited by Pam Bell RN. tm5 02:31 Buck Patel is Referral Physician. cs11 02:48 Patient visited by Dennis Michele PCA. mdr 02:50 Discontinued lock intact, bleeding controlled, pressure dressing applied, No tm5 redness/swelling at site. No procedures done that require assistance. Administered Medications: 00:31 Drug: NS 0.9% 500 ml [sodium chloride 0.9 % intravenous solution] Route: IV; Rate: tm5 bolus; Site: right hand; 01:00 Follow up: IV Status: Completed infusion; IV Intake: 500ml tm5 01:00 Drug: Haloperidol 2.5 mg [haloperidol lactate 5 mg/mL injection solution (0.5 mL)] tm5 Route: IVP; Site: right hand; :38 Follow up: Response: Nausea is resolved; No Adverse Reaction tm5 01:00 Drug: diphenhydrAMINE 12.5 mg [diphenhydramine 50 mg/mL injection solution (0.25 mL)] tm5 Route: IVP; Site: right hand; 38 Follow up: Response: Nausea is resolved; No Adverse Reaction tm5 Intake: 01:00 IV: 500.00ml; Total: 500.00ml. tm5 Order Results: Lab Order: CBC with Diff; SPEC'M 01/08/17 00:21 Test: WHITE BLOOD COUNT; Value: 12.2; Range: 4.0-10.0; Abnormal: Above high normal; Units: K/mm3; Status: F Test: RED BLOOD COUNT; Value: 5.14; Range: 4.00-5.40; Units: M/mm3; Status: F Test: HEMOGLOBIN; Value: 14.2; Range: 12.0-16.0; Units: g/dl; Status: F Test: HEMATOCRIT; Value: 42.6; Range: 36.0-47.0; Units: %; Status: F Test: MEAN CORPUSCULAR VOLUME; Value: 82.9; Range: 80.0-96.0; Units: fl; Status: F Test: MEAN CORPUSCULAR HEMOGLOBIN; Value: 27.6; Range: 27.0-33.0; Units: pg; Status: F Test: MEAN CORPUSCULAR HGB CONC; Value: 33.3; Range: 32.0-36.5; Units: g/dl; Status: F Test: RED CELL DISTRIBUTION WIDTH; Value: 14.0; Range: 11.5-14.5; Units: %; Status: F Test: PLATELET COUNT, AUTOMATED; Value: 262; Range: 150-450; Units: k/mm3; Status: F Test: NEUTROPHILS %; Value: 90.2; Range: 36.0-66.0; Abnormal: Above high normal; Units: %; Status: F Test: LYMPH %; Value: 5.1; Range: 24.0-44.0; Abnormal: Below low normal; Units: %; Status: F Test: MONO %; Value: 2.1; Range: 0.0-5.0; Units: %; Status: F Test: EOS %; Value: 1.8; Range: 0.0-3.0; Units: %; Status: F Test: BASO %; Value: 0.1; Range: 0.0-1.0; Units: %; Status: F Test: LARGE UNSTAINED CELL %; Value: 0.7; Range: 0.0-4.0; Units: %; Status: F Test: NEUTROPHILS #; Value: 11.0; Range: 1.8-7.7; Abnormal: Above high normal; Units: K/mm3; Status: F Test: LYMPH #; Value: 0.6; Range: 1.5-4.5; Abnormal: Below low normal; Units: K/mm3; Status: F Test: MONO #; Value: 0.3; Range: 0.0-0.8; Units: K/mm3; Status: F Test: EOS #; Value: 0.2; Range: 0.0-0.50; Units: K/mm3; Status: F Test: BASO #; Value: 0.0; Range: 0.0-0.2; Units: K/mm3; Status: F Test: LARGE UNSTAINED CELL #; Value: 0.1; Range: 0.0-0.4; Units: K/mm3; Status: F Lab Order: MED Profile; SPEC'M 01/08/17 00:21 Test: GLUCOSE, FASTING; Value: 137; Range: 70-105; Abnormal: Above high normal; Units: MG/DL; Status: F Test: BLOOD UREA NITROGEN; Value: 14; Range: 7-18; Units: MG/DL; Status: F Test: CREATININE FOR GFR; Value: 0.86; Range: 0.55-1.02; Units: MG/DL; Status: F Test: GLOMERULAR FILTRATION RATE; Value: > 60.0; Range: >51; Status: F Test: SODIUM LEVEL; Value: 138; Range: 136-145; Units: MEQ/L; Status: F Test: POTASSIUM SERUM; Value: 3.9; Range: 3.5-5.1; Units: MEQ/L; Status: F Test: CHLORIDE LEVEL; Value: 105; Range: 98-107; Units: MEQ/L; Status: F Test: CARBON DIOXIDE LEVEL; Value: 22; Range: 21-32; Units: MEQ/L; Status: F Test: ANION GAP; Value: 11; Range: 8-16; Units: MEQ/L; Status: F Test: CALCIUM LEVEL; Value: 9.0; Range: 8.5-10.1; Units: MG/DL; Status: F Test Note: ; Units are mL/min/1.73 m2 Chronic Kidney Disease Staging per NKF: Stage I & II GFR >=60 Normal to Mildly Decreased Stage III GFR 30-59 Moderately Decreased Stage IV GFR 15-29 Severely Decreased Stage V GFR <15 Very Little GFR Left ESRD GFR <15 on TICKET TAKER FERRYBOAT Lab Order: Liver Profile; JEFFRY 01/08/17 00:21 Test: AST/SGOT; Value: 11; Range: 15-37; Abnormal: Below low normal; Units: U/L; Status: F Test: ALT/SGPT; Value: 19; Range: 12-78; Units: U/L; Status: F Test: ALKALINE PHOSPHATASE; Value: 74; Range: 45-117; Units: U/L; Status: F Test: BILIRUBIN,TOTAL; Value: 0.4; Range: 0.2-1.0; Units: MG/DL; Status: F Test: BILIRUBIN,DIRECT; Value: < 0.1; Range: 0.0-0.2; Units: MG/DL; Status: F Test: TOTAL PROTEIN; Value: 8.2; Range: 6.4-8.2; Units: GM/DL; Status: F Test: ALBUMIN; Value: 3.8; Range: 3.2-5.2; Units: GM/DL; Status: F Test: ALBUMIN/GLOBULIN RATIO; Value: 0.86; Range: 1.00-1.93; Abnormal: Below low normal; Status: F Lab Order: Amylase; SPEC' 01/08/17 00:21 Test: AMYLASE; Value: 62; Range: 25-115; Units: U/L; Status: F Lab Order: Lipase; SPEC' 01/08/17 00:21 Test: LIPASE; Value: 137; Range: 73-393; Units: U/L; Status: F Lab Order: Urinalysis; SPEC' 01/08/17 01:37 Test: APPEARANCE, URINE; Value: HAZY; Range: CLEAR; Status: F Test: COLOR, URINE; Value: YELLOW; Range: YELLOW; Status: F Test: PH,URINE; Value: 5.0; Range: 5.0-9.0; Units: UNITS; Status: F Test: SPECIFIC GRAVITY URINE AUTO; Value: 1.026; Range: 1.002-1.035; Status: F Test: PROTEIN, URINE AUTO; Value: 1+; Range: NEGATIVE; Abnormal: Above high normal; Units: mg/dL; Status: F Test: GLUCOSE, URINE (UA) AUTO; Value: NEGATIVE; Range: NEGATIVE; Units: mg/dL; Status: F Test: KETONE, URINE AUTO; Value: TRACE; Range: NEGATIVE; Abnormal: Above high normal; Units: mg/dL; Status: F Test: UROBILINOGEN, URINE AUTO; Value: 0.2; Range: 0.0-2.0; Units: mg/dL; Status: F Test: BILIRUBIN, URINE AUTO; Value: NEGATIVE; Range: NEGATIVE; Status: F Test: NITRITE, URINE AUTO; Value: NEGATIVE; Range: NEGATIVE; Status: F Test: LEUKOCYTE ESTERASE, URINE AUTO; Value: TRACE; Range: NEGATIVE; Abnormal: Above high normal; Status: F Test: BLOOD, URINE BLOOD; Value: NEGATIVE; Range: NEGATIVE; Status: F Test: WBC, URINE AUTO; Value: 1; Range: 0-3; Units: /HPF; Status: F Test: RBC, URINE AUTO; Value: 1; Range: 0-3; Units: /HPF; Status: F Test: BACTERIA, URINE AUTO; Value: NEGATIVE; Range: NEGATIVE; Status: F Test: SQUAMOUS EPITHELIAL CELL UR AU; Value: 1; Range: 0-6; Units: /HPF; Status: F Test: MUCUS, URINE; Value: SMALL; Range: NEGATIVE; Status: F Test: HYALINE CAST, URINE AUTO; Value: 0; Range: 0-1; Units: /LPF; Status: F Outcome: 02:32 Discharge ordered by Provider. cs11 02:55 Discharge Assessment: Patient awake, alert and oriented x 3. No cognitive and/or tm5 functional deficits noted. Patient verbalized understanding of disposition instructions. patient administered narcotics - no. The following High Risk Discharge criteria are identified: None. Discharged to home ambulatory. Condition: good Condition: stable Condition: improved. Discharge instructions given to patient, Instructed on discharge instructions, follow up and referral plans. medication usage, Demonstrated understanding of instructions, Pt was receptive of discharge instructions/ teaching. No special radiology studies were completed. Property :Personal belongings accompany Pt. 02:57 Patient left the ED. tm5 Signatures: Aravind Desouza DO DO cs11 Joann Moore gr2 Mata Resendiz,RN RN hib Dennis Michele, LOCK CORNER MACHINE OPERATOR LOCK CORNER MACHINE OPERATOR mdr Chula Mcclellan, Reg Reg hs2 Pam Bell,RN RN tm5 Corrections: (The following items were deleted from the chart) 01/07 23:19 23:17 Presenting complaint: Patient states: Patient reports that she called 911 because [facility] she lives alone. Patient reports vomiting up enough to fill up mop bucket. Patient reports that she believes it is a reaction to the grapefruit she ate with her medication. farhana MTDD
--- NOTE | 2017-01-08 07:53 | REP ---
Clinical: Acute cough . Comparison: 11/25/2016 . Technique: PA and lateral. Findings: The mediastinum and cardiac silhouette are normal. The lung milan are clear and without acute consolidation, effusion, or pneumothorax. The skeletal structures are intact and normal. Impression: 1. No acute cardiopulmonary process. Signed by Manohar Art MD 01/08/2017 07:45 A
--- NOTE | 2017-01-10 03:58 | EDDOCDS ---
Physician Documentation [facility] Name: Malou Castaneda Age: 51 yrs Sex: Female : 1965 Arrival Date: 01/07/2017 Time: 23:06 Bed 12 Private MD: Buck Patel A. Disposition: 01/08/17 02:32 Discharged to Home/Self Care. Impression: Vomiting, Noninfective gastroenteritis and colitis, unspecified. - Condition is Stable. - Discharge Instructions: Clear Liquid Diet. - Medication Reconciliation, Local Pharmacy Hours form. - Follow up: Buck Patel; When: Call to arrange an appointment; Reason: Recheck today's complaints. - Problem is new. - Symptoms have improved. Historical: - Allergies: decongestants; histamines; steroids"put my body out of whack"; - Home Meds: 1. albuterol sulfate 1.25 mg/3 mL Inhl nebu 3 mL 4 times per day prn 2. azelastine 137 mcg (0.1 %) nasal spra 2 sprays 2 times per day 3. irbesartan 300 mg oral tab 1 tab once daily 4. nasal steroid spray 5. Prometrium 200 mg oral cap once daily 6. Protonix 40 mg Oral TbEC 1 tab once daily 7. Qvar inhalation 2 puffs 2 times per day 8. vaginal cream 1 gm twice weekly 9. 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 No barriers to communication noted, The patient speaks fluent German, Speaks appropriately for age. - Family history: Not pertinent. - : The pt / caregiver states he / she is not on anticoagulants. Home medication list is obtained from the patient. - Exposure Risk Screening:: None identified. 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 3 in. (160.02 cm) (R); Pain 7/10; 01/08 02:47 BP 141 / 72; Pulse 101; Resp 18; Temp 100.3(TE); Pulse Ox 97% on R/A; Pain 0/10; mdr 01/07 23:10 Body Mass Index 43.22 (110.68 kg, 160.02 cm) gr2 MDM: 00:04 Chest, 2 View (pa\\E\\lat) Ordered. EDMS 00:04 IV Saline Lock ordered. cs11 00:04 NS 0.9% 500 ml IV at bolus once ordered. cs11 00:05 CBC with Diff Ordered. EDMS 00:05 MED Profile Ordered. EDMS 00:05 Liver Profile Ordered. EDMS 00:05 Amylase Ordered. EDMS 00:05 Lipase Ordered. EDMS 00:05 Urinalysis Ordered. EDMS 00:05 Urine Culture Ordered. EDMS 00:23 Financial registration complete. hs2 00:29 [facility] Payment Agreement was scanned into [employer] and attached to record. hs2 00:33 CBC with Diff Reviewed. cs11 00:41 Haloperidol 2.5 mg IVP once ordered. cs11 00:41 diphenhydrAMINE 12.5 mg IVP once ordered. cs11 01:04 MED Profile Reviewed. cs11 01:04 Liver Profile Reviewed. cs11 01:04 Amylase Reviewed. cs11 01:04 Lipase Reviewed. cs11 01:16 [facility]. Nursing Order ordered. cs11 02:02 Urinalysis Reviewed. cs11 09:39 T-Sheet-- Draft Copy was scanned into [employer] and attached to record. gb Administered Medications: 00:31 Drug: NS 0.9% 500 ml [sodium chloride 0.9 % intravenous solution] Route: IV; Rate: tm5 bolus; Site: right hand; 01:00 Follow up: IV Status: Completed infusion; IV Intake: 500ml tm5 01:00 Drug: Haloperidol 2.5 mg [haloperidol lactate 5 mg/mL injection solution (0.5 mL)] tm5 Route: IVP; Site: right hand; 01:38 Follow up: Response: Nausea is resolved; No Adverse Reaction tm5 01:00 Drug: diphenhydrAMINE 12.5 mg [diphenhydramine 50 mg/mL injection solution (0.25 mL)] tm5 Route: IVP; Site: right hand; 01:38 Follow up: Response: Nausea is resolved; No Adverse Reaction tm5 Signatures: Dispatcher [employer] Deanne Wilhelm, Reg Reg gb Aravind Desouza, DO cs11 Mata Resendiz,RN RN jmb Chula Mcclellan, Reg Reg hs2 Pam Bell RN RN tm5 The chart was reviewed and I authenticate all verbal orders and agree with the evaluation and treatment provided.Attachments: 00:29 [facility] Payment Agreement hs2 09:39 T-Sheet-- Draft Copy gb Chart Complete MTDD
--- NOTE | 2017-01-10 03:58 | EDDOCDS ---
Nurse's Notes [facility] Name: Malou Castaneda Age: 51 yrs Sex: Female : 1965 Arrival Date: 01/07/2017 Time: 23:06 Bed 12 Private MD: Buck Patel A. Diagnosis: Vomiting;Noninfective gastroenteritis and colitis, unspecified Presentation: 01/07 23:17 Presenting complaint: Patient states: Patient reports that she called 911 because she jmb lives alone. Patient reports vomiting up enough to fill up mop bucket. Patient reports that she believes it is a reaction to the grapefruit she ate with her medication. Patient reports that she just needs to make sure she doesn't have an infection in her body since she was recently discharged on the from the hospital. Adult Sepsis Screening: The patient does not have new or worsening altered mentation. Patient's respiratory rate is less than 22. Systolic blood pressure is greater than 100. Patient has a qSOFA score of 0- Negative Sepsis Screen. Suicide/Homicide risk assessment- the patient denies having any suicidal and/or homicidal ideations and does not present with any other emotional, behavioral or mental health complaints. Status: Patient is not a service station attendant or dependent. Transition of care: patient was not received from another setting of care. 23:17 Acuity: [place] Level 3 [facility] 23:17 Method Of Arrival: Ambulance [facility] Triage Assessment: 23:20 General: Appears in no apparent distress, Behavior is appropriate for age, cooperative. [facility] General: prior to triage and all during triage patient texting on cell phone.. Pain: Denies pain. HIV screening NA for this visit Offered previously. Neurological: Level of Consciousness is awake, alert, obeys commands, Oriented to person, place, time, Speech is normal, Facial symmetry appears normal, Facial symmetry: tongue is midline. Respiratory: Airway is patent Respiratory effort is even, unlabored, Respiratory pattern is regular, symmetrical. GI: Abdomen is non- distended. Derm: Skin is pink, warm & dry. Musculoskeletal: Range of motion intact in all extremities. 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 albuterol sulfate 1.25 mg/3 mL Inhl nebu 3 mL 4 times per day prn 2. azelastine 137 mcg (0.1 %) nasal spra 2 sprays 2 times per day 3. irbesartan 300 mg oral tab 1 tab once daily 4. nasal steroid spray 5. Prometrium 200 mg oral cap once daily 6. Protonix 40 mg Oral TbEC 1 tab once daily 7. Qvar inhalation 2 puffs 2 times per day 8. vaginal cream 1 gm twice weekly 9. 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 No barriers to communication noted, The patient speaks fluent Khmer, Speaks appropriately for age. - Family history: Not pertinent. - : The pt / caregiver states he / she is not on anticoagulants. Home medication list is obtained from the patient. - Exposure Risk Screening:: None identified. Screenin/16 00:31 Screening information is obtained from the patient. Fall risk: No risks identified. tm5 Assistance ADL's: requires no assistance with activities of daily living. Abuse/DV Screen: The patient / caregiver reports he/she is: not in a situation that causes fear, pain or injury. Nutritional screening: No deficits noted. Advance Directives: There is no active DNR order. home support is adequate. Assessment: 00:02 General: pt transported to her room via wheelchair & is very talkative on her cell tm5 phone . 00:31 General: Appears in no apparent distress, Behavior is appropriate for age, cooperative. tm5 Pain: Location: abdomen Pain currently is 5 out of 10 on a pain scale. Quality of pain is described as crampy. Neurological: Level of Consciousness is awake, alert, Oriented to person, place, time. Respiratory: Airway is patent Respiratory effort is even, unlabored, Respiratory pattern is regular, symmetrical, Breath sounds are clear bilaterally. GI: Abdomen is obese, Bowel sounds present X 4 quads. Abd is soft and non tender X 4 quads. Reports nausea, vomiting. : No deficits noted. Derm: Skin is pink, warm & dry. 01:29 Reassessment: Patient appears in no apparent distress at this time. Patient states tm5 feeling better. Patient states symptoms have improved. 02:55 Reassessment: Patient appears in no apparent distress at this time. Patient states tm5 feeling better. Patient states symptoms have improved. Vital Signs: 01/07 23:10 BP 135 / 78; Pulse 104; Resp 18 S; Temp 98.7(O); Pulse Ox 95% on R/A; Weight 110.68 kg gr2 (R); Height 5 ft. 3 in. (160.02 cm) (R); Pain 7/10; 01/08 02:47 BP 141 / 72; Pulse 101; Resp 18; Temp 100.3(TE); Pulse Ox 97% on R/A; Pain 0/10; mdr 01/07 23:10 Body Mass Index 43.22 (110.68 kg, 160.02 cm) gr2 Vitals: 01/07 23:10 Log In Time: January 07, 2017 at 23:10. gr2 ED Course: 23:09 Patient visited by Joann Moore. gr2 23:09 Buck Patel is Private Physician. gr2 23:09 Patient moved to Waiting gr2 23:11 Patient visited by Joann Moore. gr2 23:11 Patient moved to Pre RCE gr2 23:18 Triage Initiated jmb 23:59 Patient moved to 12 b 01/08 00:02 Aravind Desouza DO is Attending Physician. cs11 00:02 Patient visited by Aravind Desouza DO. cs11 00:02 Patient visited by Pam Bell RN. tm5 00:29 [facility] Payment Agreement was scanned into [employer] and attached to record. hs2 00:31 Awaiting ED physician evaluation. tm5 00:31 The patient / caregiver is instructed regarding the plan of care and ED course. tm5 00:31 Inserted saline lock: 20 gauge in right hand and blood collected. The patient tolerated tm5 the procedure well. Labs drawn. (by ED staff). Sent per order to lab. 01:29 Patient visited by Pam Bell RN. tm5 01:38 Patient visited by Pam Bell RN. tm5 01:38 Urine Culture Sent. tm5 01:38 Urinalysis Sent. tm5 02:18 Patient visited by Pam Bell RN. tm5 02:31 Buck Patel is Referral Physician. cs11 02:48 Patient visited by Dennis Michele PCA. mdr 02:50 Discontinued lock intact, bleeding controlled, pressure dressing applied, No tm5 redness/swelling at site. No procedures done that require assistance. 07:56 Chest, 2 View (pa\\E\\lat) Returned. EDMS 09:39 T-Sheet-- Draft Copy was scanned into [employer] and attached to record. gb Administered Medications: 00:31 Drug: NS 0.9% 500 ml [sodium chloride 0.9 % intravenous solution] Route: IV; Rate: tm5 bolus; Site: right hand; 01:00 Follow up: IV Status: Completed infusion; IV Intake: 500ml tm5 01:00 Drug: Haloperidol 2.5 mg [haloperidol lactate 5 mg/mL injection solution (0.5 mL)] tm5 Route: IVP; Site: right hand; 01:38 Follow up: Response: Nausea is resolved; No Adverse Reaction tm5 01:00 Drug: diphenhydrAMINE 12.5 mg [diphenhydramine 50 mg/mL injection solution (0.25 mL)] tm5 Route: IVP; Site: right hand; 01:38 Follow up: Response: Nausea is resolved; No Adverse Reaction tm5 Intake: 01:00 IV: 500.00ml; Total: 500.00ml. tm5 Order Results: Lab Order: CBC with Diff; SPEC'M 01/08/17 00:21 Test: WHITE BLOOD COUNT; Value: 12.2; Range: 4.0-10.0; Abnormal: Above high normal; Units: K/mm3; Status: F Test: RED BLOOD COUNT; Value: 5.14; Range: 4.00-5.40; Units: M/mm3; Status: F Test: HEMOGLOBIN; Value: 14.2; Range: 12.0-16.0; Units: g/dl; Status: F Test: HEMATOCRIT; Value: 42.6; Range: 36.0-47.0; Units: %; Status: F Test: MEAN CORPUSCULAR VOLUME; Value: 82.9; Range: 80.0-96.0; Units: fl; Status: F Test: MEAN CORPUSCULAR HEMOGLOBIN; Value: 27.6; Range: 27.0-33.0; Units: pg; Status: F Test: MEAN CORPUSCULAR HGB CONC; Value: 33.3; Range: 32.0-36.5; Units: g/dl; Status: F Test: RED CELL DISTRIBUTION WIDTH; Value: 14.0; Range: 11.5-14.5; Units: %; Status: F Test: PLATELET COUNT, AUTOMATED; Value: 262; Range: 150-450; Units: k/mm3; Status: F Test: NEUTROPHILS %; Value: 90.2; Range: 36.0-66.0; Abnormal: Above high normal; Units: %; Status: F Test: LYMPH %; Value: 5.1; Range: 24.0-44.0; Abnormal: Below low normal; Units: %; Status: F Test: MONO %; Value: 2.1; Range: 0.0-5.0; Units: %; Status: F Test: EOS %; Value: 1.8; Range: 0.0-3.0; Units: %; Status: F Test: BASO %; Value: 0.1; Range: 0.0-1.0; Units: %; Status: F Test: LARGE UNSTAINED CELL %; Value: 0.7; Range: 0.0-4.0; Units: %; Status: F Test: NEUTROPHILS #; Value: 11.0; Range: 1.8-7.7; Abnormal: Above high normal; Units: K/mm3; Status: F Test: LYMPH #; Value: 0.6; Range: 1.5-4.5; Abnormal: Below low normal; Units: K/mm3; Status: F Test: MONO #; Value: 0.3; Range: 0.0-0.8; Units: K/mm3; Status: F Test: EOS #; Value: 0.2; Range: 0.0-0.50; Units: K/mm3; Status: F Test: BASO #; Value: 0.0; Range: 0.0-0.2; Units: K/mm3; Status: F Test: LARGE UNSTAINED CELL #; Value: 0.1; Range: 0.0-0.4; Units: K/mm3; Status: F Lab Order: MED Profile; SPEC'M 01/08/17 00:21 Test: GLUCOSE, FASTING; Value: 137; Range: 70-105; Abnormal: Above high normal; Units: MG/DL; Status: F Test: BLOOD UREA NITROGEN; Value: 14; Range: 7-18; Units: MG/DL; Status: F Test: CREATININE FOR GFR; Value: 0.86; Range: 0.55-1.02; Units: MG/DL; Status: F Test: GLOMERULAR FILTRATION RATE; Value: > 60.0; Range: >51; Status: F Test: SODIUM LEVEL; Value: 138; Range: 136-145; Units: MEQ/L; Status: F Test: POTASSIUM SERUM; Value: 3.9; Range: 3.5-5.1; Units: MEQ/L; Status: F Test: CHLORIDE LEVEL; Value: 105; Range: 98-107; Units: MEQ/L; Status: F Test: CARBON DIOXIDE LEVEL; Value: 22; Range: 21-32; Units: MEQ/L; Status: F Test: ANION GAP; Value: 11; Range: 8-16; Units: MEQ/L; Status: F Test: CALCIUM LEVEL; Value: 9.0; Range: 8.5-10.1; Units: MG/DL; Status: F Test Note: ; Units are mL/min/1.73 m2 Chronic Kidney Disease Staging per NKF: Stage I & II GFR >=60 Normal to Mildly Decreased Stage III GFR 30-59 Moderately Decreased Stage IV GFR 15-29 Severely Decreased Stage V GFR <15 Very Little GFR Left ESRD GFR <15 on MUTUAL FUND ANALYST Lab Order: Liver Profile; [facility]01/08[facility]17 00:21 Test: AST/SGOT; Value: 11; Range: 15-37; Abnormal: Below low normal; Units: U/L; Status: F Test: ALT/SGPT; Value: 19; Range: 12-78; Units: U/L; Status: F Test: ALKALINE PHOSPHATASE; Value: 74; Range: 45-117; Units: U/L; Status: F Test: BILIRUBIN,TOTAL; Value: 0.4; Range: 0.2-1.0; Units: MG/DL; Status: F Test: BILIRUBIN,DIRECT; Value: < 0.1; Range: 0.0-0.2; Units: MG/DL; Status: F Test: TOTAL PROTEIN; Value: 8.2; Range: 6.4-8.2; Units: GM/DL; Status: F Test: ALBUMIN; Value: 3.8; Range: 3.2-5.2; Units: GM/DL; Status: F Test: ALBUMIN/GLOBULIN RATIO; Value: 0.86; Range: 1.00-1.93; Abnormal: Below low normal; Status: F Lab Order: Amylase; [facility] 01/08/17 00:21 Test: AMYLASE; Value: 62; Range: 25-115; Units: U/L; Status: F Lab Order: Lipase; [facility] 01/08/17 00:21 Test: LIPASE; Value: 137; Range: 73-393; Units: U/L; Status: F Lab Order: Urinalysis; [facility] 01/08/17 01:37 Test: APPEARANCE, URINE; Value: HAZY; Range: CLEAR; Status: F Test: COLOR, URINE; Value: YELLOW; Range: YELLOW; Status: F Test: PH,URINE; Value: 5.0; Range: 5.0-9.0; Units: UNITS; Status: F Test: SPECIFIC GRAVITY URINE AUTO; Value: 1.026; Range: 1.002-1.035; Status: F Test: PROTEIN, URINE AUTO; Value: 1+; Range: NEGATIVE; Abnormal: Above high normal; Units: mg/dL; Status: F Test: GLUCOSE, URINE (UA) AUTO; Value: NEGATIVE; Range: NEGATIVE; Units: mg/dL; Status: F Test: KETONE, URINE AUTO; Value: TRACE; Range: NEGATIVE; Abnormal: Above high normal; Units: mg/dL; Status: F Test: UROBILINOGEN, URINE AUTO; Value: 0.2; Range: 0.0-2.0; Units: mg/dL; Status: F Test: BILIRUBIN, URINE AUTO; Value: NEGATIVE; Range: NEGATIVE; Status: F Test: NITRITE, URINE AUTO; Value: NEGATIVE; Range: NEGATIVE; Status: F Test: LEUKOCYTE ESTERASE, URINE AUTO; Value: TRACE; Range: NEGATIVE; Abnormal: Above high normal; Status: F Test: BLOOD, URINE BLOOD; Value: NEGATIVE; Range: NEGATIVE; Status: F Test: WBC, URINE AUTO; Value: 1; Range: 0-3; Units: /HPF; Status: F Test: RBC, URINE AUTO; Value: 1; Range: 0-3; Units: /HPF; Status: F Test: BACTERIA, URINE AUTO; Value: NEGATIVE; Range: NEGATIVE; Status: F Test: SQUAMOUS EPITHELIAL CELL UR AU; Value: 1; Range: 0-6; Units: /HPF; Status: F Test: MUCUS, URINE; Value: SMALL; Range: NEGATIVE; Status: F Test: HYALINE CAST, URINE AUTO; Value: 0; Range: 0-1; Units: /LPF; Status: F Lab Order: Urine Culture; SPEC'M 01/08/17 01:37 Test: URINE CULTURE; Value: <EXTERNAL COMMENT eCWMed> FULL REPORT IN LAB NOTES (eCW and Medent).; Status: F Test: URINE CULTURE; Value: URINE CULTURE RESULT SPECIMEN APPEARS CONTAMINATED; Status: F Radiology Order: Chest, 2 View (pa\\E\\lat) Test: Chest, 2 View (pa\\E\\lat) REASON FOR EXAMINATION: Cough; Clinical: Acute cough .; ; Comparison: 11/25/2016 .; ; Technique: PA and lateral.; ; Findings:; The mediastinum and cardiac silhouette are normal. The lung milna are clear and; without acute consolidation, effusion, or pneumothorax. The skeletal structures; are intact and normal.; ; Impression:; 1. No acute cardiopulmonary process.; ; ; Signed by; Manohar Art MD 01/08/2017 07:45 A; Outcome: 02:32 Discharge ordered by Provider. cs11 02:55 Discharge Assessment: Patient awake, alert and oriented x 3. No cognitive and/or tm5 functional deficits noted. Patient verbalized understanding of disposition instructions. patient administered narcotics - no. The following High Risk Discharge criteria are identified: None. Discharged to home ambulatory. Condition: good Condition: stable Condition: improved. Discharge instructions given to patient, Instructed on discharge instructions, follow up and referral plans. medication usage, Demonstrated understanding of instructions, Pt was receptive of discharge instructions/ teaching. No special radiology studies were completed. Property :Personal belongings accompany Pt. 02:57 Patient left the ED. tm5 Signatures: Dispatcher [employer] EDMS Deanne Parra, Ramiro Reg gb Aravind Desouza DO DO cs11 Joann Moore gr2 Mata Resendiz,RN RN jmb Dennis Michele, POWER AND RECOVERY SUPERVISOR POWER AND RECOVERY SUPERVISOR mdr Chula Mcclellan, Reg Reg hs2 Pam Bell,RN RN tm5 Corrections: (The following items were deleted from the chart) 01/07 23:19 23:17 Presenting complaint: Patient states: Patient reports that she called 911 because jmfarhana she lives alone. Patient reports vomiting up enough to fill up mop bucket. Patient reports that she believes it is a reaction to the grapefruit she ate with her medication. rikki Chart Complete MTDD
--- NOTE | 2017-01-10 03:58 | EDDOCDS ---
Physician Documentation [facility] Name: Malou Castaneda Age: 51 yrs Sex: Female : 1965 Arrival Date: 01/07/2017 Time: 23:06 Bed 12 Private MD: Buck Patel A. Disposition: 01/08/17 02:32 Discharged to Home/Self Care. Impression: Vomiting, Noninfective gastroenteritis and colitis, unspecified. - Condition is Stable. - Discharge Instructions: Clear Liquid Diet. - Medication Reconciliation, Local Pharmacy Hours form. - Follow up: Buck Patel; When: Call to arrange an appointment; Reason: Recheck today's complaints. - Problem is new. - Symptoms have improved. Historical: - Allergies: decongestants; histamines; steroids"put my body out of whack"; - Home Meds: 1. albuterol sulfate 1.25 mg/3 mL Inhl nebu 3 mL 4 times per day prn 2. azelastine 137 mcg (0.1 %) nasal spra 2 sprays 2 times per day 3. irbesartan 300 mg oral tab 1 tab once daily 4. nasal steroid spray 5. Prometrium 200 mg oral cap once daily 6. Protonix 40 mg Oral TbEC 1 tab once daily 7. Qvar inhalation 2 puffs 2 times per day 8. vaginal cream 1 gm twice weekly 9. 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 No barriers to communication noted, The patient speaks fluent Occitan, Speaks appropriately for age. - Family history: Not pertinent. - : The pt / caregiver states he / she is not on anticoagulants. Home medication list is obtained from the patient. - Exposure Risk Screening:: None identified. 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 3 in. (160.02 cm) (R); Pain 7/10; 01/08 02:47 BP 141 / 72; Pulse 101; Resp 18; Temp 100.3(TE); Pulse Ox 97% on R/A; Pain 0/10; mdr 01/07 23:10 Body Mass Index 43.22 (110.68 kg, 160.02 cm) gr2 MDM: 00:04 Chest, 2 View (pa\\E\\lat) Ordered. EDMS 00:04 IV Saline Lock ordered. cs11 00:04 NS 0.9% 500 ml IV at bolus once ordered. cs11 00:05 CBC with Diff Ordered. EDMS 00:05 MED Profile Ordered. EDMS 00:05 Liver Profile Ordered. EDMS 00:05 Amylase Ordered. EDMS 00:05 Lipase Ordered. EDMS 00:05 Urinalysis Ordered. EDMS 00:05 Urine Culture Ordered. EDMS 00:23 Financial registration complete. hs2 00:29 [facility] Payment Agreement was scanned into [employer] and attached to record. hs2 00:33 CBC with Diff Reviewed. cs11 00:41 Haloperidol 2.5 mg IVP once ordered. cs11 00:41 diphenhydrAMINE 12.5 mg IVP once ordered. cs11 01:04 MED Profile Reviewed. cs11 01:04 Liver Profile Reviewed. cs11 01:04 Amylase Reviewed. cs11 01:04 Lipase Reviewed. cs11 01:16 [facility] [place]. Nursing Order ordered. cs11 02:02 Urinalysis Reviewed. cs11 09:39 T-Sheet-- Draft Copy was scanned into [employer] and attached to record. gb Administered Medications: 00:31 Drug: NS 0.9% 500 ml [sodium chloride 0.9 % intravenous solution] Route: IV; Rate: tm5 bolus; Site: right hand; 01:00 Follow up: IV Status: Completed infusion; IV Intake: 500ml tm5 01:00 Drug: Haloperidol 2.5 mg [haloperidol lactate 5 mg/mL injection solution (0.5 mL)] tm5 Route: IVP; Site: right hand; 01:38 Follow up: Response: Nausea is resolved; No Adverse Reaction tm5 01:00 Drug: diphenhydrAMINE 12.5 mg [diphenhydramine 50 mg/mL injection solution (0.25 mL)] tm5 Route: IVP; Site: right hand; 01:38 Follow up: Response: Nausea is resolved; No Adverse Reaction tm5 Signatures: Dispatcher [employer] Deanne Wilhelm, Reg Reg gb Aravind Desouza, DO cs11 Mata Resendiz,RN RN jmb Chula Mcclellan, Reg Reg hs2 Pam Bell RN RN tm5 The chart was reviewed and I authenticate all verbal orders and agree with the evaluation and treatment provided.Attachments: 00:29 [facility] Payment Agreement hs2 09:39 T-Sheet-- Draft Copy gb Chart Complete MTDD
== END 2017-01-08 02:57 | disposition home or self-care (01) ==
LOC: M ED 23:06
DX: K52.9 Noninfective gastroenteritis and colitis, unspecified (principal); I10 Essential (primary) hypertension; I47.1 Supraventricular tachycardia; J20.9 Acute bronchitis, unspecified; H35.53 Other dystrophies primarily involving the sensory retina; Z79.899 Other long term (current) drug therapy; Z88.8 Allergy status to other drugs, medicaments and biological substances
CPT/HCPCS: 36415; 71020; 80048; 80076; 81001; 82150; 83690; 85025; 87086; 96374; 96375; 99284; J1200; J1630

== ENCOUNTER → 2017-01-20 | Outpatient (CLI) | payer MEDICARE, MEDICAID ==
--- NOTE | 2017-01-20 15:03 | REP ---
MAXILLOFACIAL CT WITHOUT CONTRAST: HISTORY: Chronic sinusitis. The patient is status post bilateral uncinectomy and partial ethmoidectomy. Minimal mucosal thickening is present in the maxillary, right frontal and left sphenoid sinuses. The remaining sinuses are clear. The middle and inferior nasal turbinates are partially paradoxical. There is minimal deviation of the nasal septum to the left. The cribriform plate, medial javier of the orbits and optic canals are intact. The carotid canals form a segment of the posterolateral javier of the sphenoid sinus. The sphenoid sinus septa insert into the internal carotid canal javier. IMPRESSION: 1. Postoperative change as described above. 2. Sinus mucosal thickening as described above. Signed by Scott Vegas MD 01/20/2017 03:09 P
== END ==
LOC: M RAD 13:51
PROVIDERS: ATTEND Otolaryngology
DX: J32.4 Chronic pansinusitis (principal)

== ENCOUNTER 2017-03-24 22:28 | Emergency (ER) | payer MEDICARE, MEDICAID ==
[~2017-03-24] VITALS: Ht 160 cm; Wt 111.6 kg
[2017-03-24] MEDS ORDERED: RANI150T PO (22:39)
[2017-03-24 23:07] LABS: BASO % 0.4 % (0.0-1.0); EOS # 0.3 K/mm3 (0.0-0.50); EOS % 2.9 % (0.0-3.0); LARGE UNSTAINED CELL # 0.1 K/mm3 (0.0-0.4); LARGE UNSTAINED CELL % 0.8 % (0.0-4.0); LYMPH # 2.2 K/mm3 (1.5-4.5); LYMPH % 18.7 % (24.0-44.0); MEAN CORPUSCULAR HEMOGLOBIN 27.1 pg (27.0-33.0); MEAN CORPUSCULAR HGB CONC 32.4 g/dl (32.0-36.5); MEAN CORPUSCULAR VOLUME 83.8 fl (80.0-96.0); MONO # 0.3 K/mm3 (0.0-0.8); NEUTROPHILS # 8.2 K/mm3 (1.8-7.7); NEUTROPHILS % 74.1 % (36.0-66.0); PLATELET COUNT, AUTOMATED 250 k/mm3 (150-450); RED CELL DISTRIBUTION WIDTH 13.9 % (11.5-14.5)
[2017-03-24 23:38] LABS: ANION GAP 7 MEQ/L (8-16); BLOOD UREA NITROGEN 11 MG/DL (7-18); CALCIUM LEVEL 8.9 MG/DL (8.5-10.1); CARBON DIOXIDE LEVEL 24 MEQ/L (21-32); CHLORIDE LEVEL 107 MEQ/L (98-107); CREATININE FOR GFR 0.69 MG/DL (0.55-1.02); GLOMERULAR FILTRATION RATE > 60.0 (>51); GLUCOSE, FASTING 108 MG/DL (70-105); POTASSIUM SERUM 3.9 MEQ/L (3.5-5.1); SODIUM LEVEL 138 MEQ/L (136-145)
[2017-03-24 23:55] VITALS: BP 127/81
== END 2017-03-25 00:01 | disposition home or self-care (01) ==
LOC: M ED 23:07
DX: R30.0 Dysuria (principal); J30.81 Allergic rhinitis due to animal (cat) (dog) hair and dander; Z88.8 Allergy status to other drugs, medicaments and biological substances; Z79.899 Other long term (current) drug therapy

== ENCOUNTER → 2017-03-25 | Outpatient (CLI) | payer MEDICARE, MEDICAID ==
[~2017-03-25] MED LIST changes: +RANI150T PO
--- NOTE | 2017-03-26 18:37 | ECGEPIP ---
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 HEART RATE IS NOW SLOWER Electronically Signed On 03-26-2017 18:36:55 EDT by Jossue Maya
== END ==
LOC: M EKG 13:26
PROVIDERS: ATTEND Family Medicine
DX: R00.2 Palpitations (principal)

== ENCOUNTER 2017-07-09 19:17 | Emergency (ER) | payer MEDICARE, MEDICAID ==
[~2017-07-09] VITALS: Ht 160 cm; Wt 110.4 kg
[~2017-07-09 19:17] MED LIST changes: -LEVA750T PO; +LEVA750T7 PO; +LEVAINH INH; +QVAR1AER2 INH; -QVAR80AE7 INH; -XOPEAER INH
[2017-07-09] MEDS ORDERED: FLON1SPR (19:30)
[2017-07-09] MEDS ORDERED: PROG1CRE TD (19:30)
[2017-07-09 22:45] VITALS: BP 138/70
--- NOTE | 2017-07-10 08:02 | REP ---
PA and lateral chest: Comparisons are 01/08/2017 and 11/25/2016. The lung milan are clear. Cardiac size is normal. The roya, mediastinum, and bony thorax are unremarkable and unchanged. There is a lesion in the proximal left humerus compatible with enchondroma versus bone infarct. This is unchanged. Impression: No acute cardiopulmonary findings. Bone infarct versus enchondroma in the proximal left humerus. Signed by Yosi Quevedo MD 07/10/2017 07:53 A
--- NOTE | 2017-07-10 08:48 | ECGEPIP ---
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
--- NOTE | 2017-07-10 12:10 | ED PDOC ---
Post-Departure Follow-Up dr kimbrough faxed formal report of cxr for fu Nydia Page MD Jul 10, 2017 12:10
== END 2017-07-09 22:54 | disposition home or self-care (01) ==
LOC: M ED 19:17
DX: J45.901 Unspecified asthma with (acute) exacerbation (principal); H35.50 Unspecified hereditary retinal dystrophy; D25.9 Leiomyoma of uterus, unspecified; N83.209 Unspecified ovarian cyst, unspecified side; J30.81 Allergic rhinitis due to animal (cat) (dog) hair and dander; Z79.899 Other long term (current) drug therapy; Z88.8 Allergy status to other drugs, medicaments and biological substances

== ENCOUNTER 2017-08-01 14:55 | Emergency (ER) | payer MEDICARE, MEDICAID ==
[~2017-08-01] VITALS: Ht 160 cm; Wt 110.8 kg
[2017-08-01 14:55] VITALS: BP 152/92
[~2017-08-01 14:55] MED LIST changes: +FLON1SPR; +PROG1CRE TD
[2017-08-01] MEDS ORDERED: FLOV100A3 IN (15:19)
[2017-08-01] MEDS ORDERED: MUCI600T37 PO (16:38)
[2017-08-01] MEDS ORDERED: AUGM875T28 PO (16:38)
== END 2017-08-01 16:47 | disposition home or self-care (01) ==
LOC: M ED 14:55
DX: J30.9 Allergic rhinitis, unspecified (principal); Z79.899 Other long term (current) drug therapy; Z88.8 Allergy status to other drugs, medicaments and biological substances

== ENCOUNTER → 2017-08-03 | Outpatient (REF) | payer MEDICARE, MEDICAID ==
[~2017-08-03] MED LIST changes: +AUGM875T28 PO; +BACT800T5 PO; +DIFL150T PO; +FLOV100A3 IN; +MUCI600T37 PO
== END ==
LOC: M LABDRAW1 15:39
PROVIDERS: ATTEND Obstetrics & Gynecology
DX: R30.0 Dysuria (principal)

== ENCOUNTER → 2017-08-10 | Outpatient (CLI) | payer MEDICARE, MEDICAID ==
[2017-08-10 18:22] LABS: ESTRADIOL < 19.0 PG/ML; PROGESTERONE < 0.2 NG/ML
== END ==
LOC: M LAB 15:49
PROVIDERS: ATTEND Obstetrics & Gynecology
DX: D39.12 Neoplasm of uncertain behavior of left ovary (principal)

== ENCOUNTER 2017-09-05 23:37 | Emergency (ER) | payer MEDICARE, MEDICAID ==
[~2017-09-05] VITALS: Ht 160 cm; Wt 109.1 kg
[~2017-09-05 23:37] MED LIST changes: -BACT800T5 PO; -DIFL150T PO
[2017-09-06] MEDS ORDERED: BACT800T5 PO (01:45)
[2017-09-06] MEDS ORDERED: BACTRIM 160MG/800MG DS TAB PO ONE (01:45)
[2017-09-06 01:52] VITALS: BP 157/88
[2017-09-06] MEDS ORDERED: DIFL150T PO (01:52)
--- NOTE | 2017-09-06 11:30 | REP ---
Chest x-ray: Two views. History: Cough . Comparison study: July 09, 2017 . Findings: The lungs are well inflated and free of infiltrate. The pleural angles are sharp. The heart size is normal. Pulmonary vasculature is not increased. No significant bony abnormality is seen. Impression: Negative chest x-ray. Signed by Mejia Ortega MD 09/06/2017 08:11 A
== END 2017-09-06 02:06 | disposition home or self-care (01) ==
LOC: M ED 23:37
DX: J32.9 Chronic sinusitis, unspecified (principal); Z87.891 Personal history of nicotine dependence; Z79.890 Hormone replacement therapy; Z79.899 Other long term (current) drug therapy; J30.81 Allergic rhinitis due to animal (cat) (dog) hair and dander; J30.89 Other allergic rhinitis; Z88.8 Allergy status to other drugs, medicaments and biological substances; Z91.048 Other nonmedicinal substance allergy status

== ENCOUNTER → 2017-10-27 | Outpatient (CLI) | payer MEDICARE, MEDICAID ==
[~2017-10-27] MED LIST changes: +BACT800T5 PO; +DIFL150T PO
[2017-10-27 15:38] LABS: MEAN CORPUSCULAR HEMOGLOBIN 27.9 pg (27.0-33.0); MEAN CORPUSCULAR HGB CONC 33.2 g/dl (32.0-36.5); MEAN CORPUSCULAR VOLUME 84.1 fl (80.0-96.0); PLATELET COUNT, AUTOMATED 275 10^3/uL (150-450); RED CELL DISTRIBUTION WIDTH 13.3 % (11.5-14.5); WHITE BLOOD COUNT 9.7 10^3/uL (4.0-10.0)
[2017-10-27 16:10] LABS: ALBUMIN 3.6 GM/DL (3.2-5.2); ALBUMIN/GLOBULIN RATIO 1.09 (1.00-1.93); ALKALINE PHOSPHATASE 80 U/L (45-117); ALT/SGPT 20 U/L (12-78); ANION GAP 8 MEQ/L (8-16); AST/SGOT 9 U/L (7-37); BILIRUBIN,TOTAL 0.3 MG/DL (0.2-1.0); BLOOD UREA NITROGEN 14 MG/DL (7-18); CALCIUM LEVEL 8.9 MG/DL (8.5-10.1); CARBON DIOXIDE LEVEL 26 MEQ/L (21-32); CHLORIDE LEVEL 103 MEQ/L (98-107); CHOLESTEROL LEVEL 193 MG/DL (<200); CREATININE FOR GFR 0.65 MG/DL (0.55-1.02); GLOMERULAR FILTRATION RATE > 60.0 (>51); GLUCOSE, FASTING 94 MG/DL (70-105); POTASSIUM SERUM 3.9 MEQ/L (3.5-5.1); SODIUM LEVEL 137 MEQ/L (136-145); TOTAL PROTEIN 6.9 GM/DL (6.4-8.2); TRIGLYCERIDES LEVEL 199 MG/DL (<150)
== END ==
LOC: M LAB 14:04
PROVIDERS: ATTEND Family Medicine
DX: I10 Essential (primary) hypertension (principal)

== ENCOUNTER → 2017-10-27 | Outpatient (CLI) | payer MEDICARE, MEDICAID ==
[2017-10-27 16:03] LABS: IMMUNOGLOBULIN M 59.4 MG/DL (40-230)
== END ==
LOC: M LAB 14:09
PROVIDERS: ATTEND Allergy & Immunology
DX: R05 Cough (principal); H10.45 Other chronic allergic conjunctivitis; J32.0 Chronic maxillary sinusitis; J45.20 Mild intermittent asthma, uncomplicated; J30.1 Allergic rhinitis due to pollen; J30.81 Allergic rhinitis due to animal (cat) (dog) hair and dander; J30.89 Other allergic rhinitis; I10 Essential (primary) hypertension

== ENCOUNTER 2018-02-04 22:29 | Emergency (ER) | payer MEDICARE, MEDICAID ==
[2018-02-04 23:22] LABS: KETONE, URINE AUTO RFX NEGATIVE (NEGATIVE); LEUKOCYTE ESTERASE UR AUTO RFX NEGATIVE (NEGATIVE); NITRITE, URINE AUTO RFX NEGATIVE (NEGATIVE); RBC, URINE AUTO RFX 3 /HPF (0-3); SPECIFIC GRAVITY UR AUTO RFX 1.013 (1.002-1.035); SQUAM EPITHELIAL CELL UR AURFX 1 /HPF (0-6); WBC, URINE AUTO RFX 0 /HPF (0-3)
[2018-02-05 02:47] LABS: BASO % 0.4 % (0.0-1.0); EOS # 0.4 10^3/uL (0.0-0.50); EOS % 3.8 % (0.0-3.0); HEMATOCRIT 40.1 % (36.0-47.0); HEMOGLOBIN 13.3 g/dl (12.0-16.0); IMMATURE GRANULOCYTE % 0.2 % (0-3.0); LYMPH # 2.8 10^3/uL (1.5-4.5); LYMPH % 28.7 % (24.0-44.0); MEAN CORPUSCULAR HEMOGLOBIN 28.2 pg (27.0-33.0); MEAN CORPUSCULAR HGB CONC 33.2 g/dl (32.0-36.5); MEAN CORPUSCULAR VOLUME 85.1 fl (80.0-96.0); MONO # 0.5 10^3/uL (0.0-0.8); MONO % 5.2 % (0.0-5.0); NEUTROPHILS # 6.1 10^3/uL (1.8-7.7); NEUTROPHILS % 61.7 % (36.0-66.0); PLATELET COUNT, AUTOMATED 229 10^3/uL (150-450); RED BLOOD COUNT 4.71 10^6/uL (4.00-5.40); RED CELL DISTRIBUTION WIDTH 13.8 % (11.5-14.5); WHITE BLOOD COUNT 9.9 10^3/uL (4.0-10.0)
[2018-02-05 02:57] LABS: CONTROL LINE MONO INT CTR LINE PRESENT; MONO SCRN NEGATIVE (NEGATIVE)
[2018-02-05 03:12] LABS: ANION GAP 10 MEQ/L (8-16); BLOOD UREA NITROGEN 19 MG/DL (7-18); CALCIUM LEVEL 8.5 MG/DL (8.5-10.1); CARBON DIOXIDE LEVEL 24 MEQ/L (21-32); CHLORIDE LEVEL 106 MEQ/L (98-107); CREATININE FOR GFR 0.71 MG/DL (0.55-1.30); FREE T4 0.95 NG/DL (0.76-1.46); GLOMERULAR FILTRATION RATE > 60.0 (>51); GLUCOSE, FASTING 107 MG/DL (70-100); POTASSIUM SERUM 4.1 MEQ/L (3.5-5.1); SODIUM LEVEL 140 MEQ/L (136-145)
== END 2018-02-05 04:37 | disposition home or self-care (01) ==
LOC: M ED 22:29
DX: R53.83 Other fatigue (principal)
CPT/HCPCS: 84443

== ENCOUNTER → 2018-03-12 | Outpatient (CLI) | payer MEDICARE, MEDICAID ==
[2018-03-12 17:26] LABS: FREE T3 2.9 PG/ML (2.2-4.0); FREE T4 0.93 NG/DL (0.76-1.46)
== END ==
LOC: M LAB 16:08
DX: E07.9 Disorder of thyroid, unspecified (principal)

== ENCOUNTER → 2018-03-12 | Outpatient (CLI) | payer MEDICARE, MEDICAID ==
[2018-03-12 19:27] LABS: APPEARANCE, URINE CLEAR (CLEAR); BACTERIA, URINE AUTO 1+ (NEGATIVE); BILIRUBIN, URINE AUTO NEGATIVE (NEGATIVE); BLOOD, URINE BLOOD NEGATIVE (NEGATIVE); COLOR, URINE STRAW (YELLOW); GLUCOSE, URINE (UA) AUTO NEGATIVE (NEGATIVE); KETONE, URINE AUTO NEGATIVE (NEGATIVE); LEUKOCYTE ESTERASE, URINE AUTO NEGATIVE (NEGATIVE); MUCUS, URINE SMALL (NEGATIVE); NITRITE, URINE AUTO NEGATIVE (NEGATIVE); PROTEIN, URINE AUTO NEGATIVE (NEGATIVE); RBC, URINE AUTO 1 /HPF (0-3); SPECIFIC GRAVITY URINE AUTO 1.003 (1.002-1.035); SQUAMOUS EPITHELIAL CELL UR AU 1 /HPF (0-6); UROBILINOGEN, URINE AUTO 0.2 mg/dL (0.0-2.0); WBC, URINE AUTO 1 /HPF (0-3)
== END ==
LOC: M RAD 15:58
DX: D39.11 Neoplasm of uncertain behavior of right ovary (principal); N81.11 Cystocele, midline; B96.1 Klebsiella pneumoniae [K. pneumoniae] as the cause of diseases classified elsewhere; E07.9 Disorder of thyroid, unspecified
CPT/HCPCS: 76856

== ENCOUNTER 2018-03-23 19:53 | Emergency (ER) | payer MEDICARE, MEDICAID ==
[2018-03-23 21:00] LABS: KETONE, URINE AUTO RFX TRACE mg/dL (NEGATIVE); MUCUS, URINE RFX SMALL (NEGATIVE); NITRITE, URINE AUTO RFX NEGATIVE (NEGATIVE); RBC, URINE AUTO RFX 2 /HPF (0-3); SPECIFIC GRAVITY UR AUTO RFX 1.029 (1.002-1.035); SQUAM EPITHELIAL CELL UR AURFX 3 /HPF (0-6); WBC, URINE AUTO RFX 1 /HPF (0-3)
[2018-03-23 21:02] LABS: LEUKOCYTE ESTERASE UR AUTO RFX TRACE (NEGATIVE)
[2018-03-24] MEDS: AMOXICILLIN 500 MG CAP PO (00:08)
[2018-03-24] MEDS: diazePAM 2 MG TAB PO (00:08)
== END 2018-03-24 00:38 | disposition home or self-care (01) ==
LOC: M ED 03-24 00:38
DX: R42 Dizziness and giddiness (principal); H65.92 Unspecified nonsuppurative otitis media, left ear; I10 Essential (primary) hypertension; K21.9 Gastro-esophageal reflux disease without esophagitis; L10.4 Pemphigus erythematosus; Z79.899 Other long term (current) drug therapy; Z88.8 Allergy status to other drugs, medicaments and biological substances; J30.81 Allergic rhinitis due to animal (cat) (dog) hair and dander
CPT/HCPCS: 81001

== ENCOUNTER → 2018-03-30 | Outpatient (REF) | payer MEDICARE, MEDICAID ==
[2018-03-30 18:19] LABS: APPEARANCE, URINE CLEAR (CLEAR); BACTERIA, URINE AUTO NEGATIVE (NEGATIVE); BILIRUBIN, URINE AUTO NEGATIVE (NEGATIVE); BLOOD, URINE BLOOD NEGATIVE (NEGATIVE); COLOR, URINE COLORLESS (YELLOW); GLUCOSE, URINE (UA) AUTO NEGATIVE (NEGATIVE); KETONE, URINE AUTO NEGATIVE (NEGATIVE); LEUKOCYTE ESTERASE, URINE AUTO NEGATIVE (NEGATIVE); NITRITE, URINE AUTO NEGATIVE (NEGATIVE); PROTEIN, URINE AUTO NEGATIVE (NEGATIVE); RBC, URINE AUTO 0 /HPF (0-3); SPECIFIC GRAVITY URINE AUTO 1.001 (1.002-1.035); SQUAMOUS EPITHELIAL CELL UR AU 0 /HPF (0-6); UROBILINOGEN, URINE AUTO 0.2 mg/dL (0.0-2.0); WBC, URINE AUTO 0 /HPF (0-3)
== END ==
LOC: M LAB REF 16:22
DX: R39.89 Other symptoms and signs involving the genitourinary system (principal); Z87.440 Personal history of urinary (tract) infections
CPT/HCPCS: 81001

== ENCOUNTER 2018-05-25 23:26 | Emergency (ER) | payer MEDICARE, MEDICAID ==
[2018-05-26 01:06] LABS: BASO % 0.4 % (0.0-1.0); EOS # 0.2 10^3/uL (0.0-0.50); EOS % 1.8 % (0.0-3.0); HEMATOCRIT 40.5 % (36.0-47.0); HEMOGLOBIN 13.3 g/dl (12.0-15.5); IMMATURE GRANULOCYTE % 0.4 % (0-3.0); LYMPH # 2.6 10^3/uL (1.5-4.5); LYMPH % 23.5 % (24.0-44.0); MEAN CORPUSCULAR HGB CONC 32.8 g/dl (32.0-36.5); MEAN CORPUSCULAR VOLUME 85.3 fl (80.0-96.0); MONO # 0.6 10^3/uL (0.0-0.8); MONO % 5.3 % (0.0-5.0); NEUTROPHILS # 7.7 10^3/uL (1.8-7.7); NEUTROPHILS % 68.6 % (36.0-66.0); PLATELET COUNT, AUTOMATED 247 10^3/uL (150-450); RED BLOOD COUNT 4.75 10^6/uL (4.00-5.40); RED CELL DISTRIBUTION WIDTH 13.2 % (11.5-14.5); WHITE BLOOD COUNT 11.2 10^3/uL (4.0-10.0)
[2018-05-26 01:30] LABS: ANION GAP 8 MEQ/L (8-16); BLOOD UREA NITROGEN 17 MG/DL (7-18); CALCIUM LEVEL 8.9 MG/DL (8.5-10.1); CARBON DIOXIDE LEVEL 28 MEQ/L (21-32); CHLORIDE LEVEL 106 MEQ/L (98-107); CPK CREATINE PHOSPHOKINASE 47 U/L (26-192); CREATININE FOR GFR 0.86 MG/DL (0.55-1.30); GLOMERULAR FILTRATION RATE > 60.0 (>51); GLUCOSE, FASTING 110 MG/DL (70-100); POTASSIUM SERUM 4.1 MEQ/L (3.5-5.1); SODIUM LEVEL 142 MEQ/L (136-145); TROPONIN I < 0.02 NG/ML (< 0.10)
[2018-05-26 01:31] LABS: CK-MB VALUE MASS 1.2 NG/ML (<3.6); MB/CK RELATIVE INDEX 2.55 (< OR =4); NT-PRO BNP 17 PG/ML (<125)
[2018-05-26] MEDS ORDERED: ISOVUE-370 76% 100ML VIAL (Q9967) As Ordered (01:38)
== END 2018-05-26 04:38 | disposition home or self-care (01) ==
LOC: M ED 23:26
DX: R06.02 Shortness of breath (principal); I10 Essential (primary) hypertension; K21.9 Gastro-esophageal reflux disease without esophagitis; L10.4 Pemphigus erythematosus; Z79.899 Other long term (current) drug therapy; Z88.8 Allergy status to other drugs, medicaments and biological substances; J30.9 Allergic rhinitis, unspecified; J30.81 Allergic rhinitis due to animal (cat) (dog) hair and dander
CPT/HCPCS: Q9967

== ENCOUNTER 2018-08-08 22:56 | Emergency (ER) | payer MEDICARE, MEDICAID ==
[2018-08-11 00:06] LABS: Lyme Disease IgG/IgM Antibodie <0.91 ISR (0.00-0.90); Lyme Disease IgM Ab Quantitati <0.80 index (0.00-0.79)
== END 2018-08-08 23:50 | disposition home or self-care (01) ==
LOC: M ED 22:56
DX: M25.562 Pain in left knee (principal); S80.862A Insect bite (nonvenomous), left lower leg, initial encounter; W57.XXXA Bitten or stung by nonvenomous insect and other nonvenomous arthropods, initial encounter; Y92.9 Unspecified place or not applicable; Y93.9 Activity, unspecified; Y99.9 Unspecified external cause status; I10 Essential (primary) hypertension; K21.9 Gastro-esophageal reflux disease without esophagitis; L10.4 Pemphigus erythematosus; Z79.899 Other long term (current) drug therapy; J30.89 Other allergic rhinitis; Z88.8 Allergy status to other drugs, medicaments and biological substances
CPT/HCPCS: 86617

== ENCOUNTER → 2018-09-02 | Outpatient (CLI) | payer MEDICARE, MEDICAID | LOC: M RAD 15:53 | DX: M23.92 Unspecified internal derangement of left knee (principal); M17.12 Unilateral primary osteoarthritis, left knee; M22.42 Chondromalacia patellae, left knee; M71.21 Synovial cyst of popliteal space [Baker], right knee; M25.462 Effusion, left knee | CPT/HCPCS: 73721 ==

== ENCOUNTER 2019-03-14 19:07 | Emergency (ER) | payer MEDICARE, MEDICAID ==
[~2019-03-14] VITALS: Ht 160 cm; Wt 108.2 kg
[~2019-03-14 19:07] MED LIST changes: +AMOX875T PO; +FLOV100A3; +FLUOXETINE; +NITR100C2; +PANT40TA3 PO; -QVAR1AER2 INH; +QVAR80AE10 INH; +RANI150T; +VALI2TAB PO
[2019-03-14] MEDS ORDERED: FLOV100A3 INH (19:16)
[2019-03-14] MEDS ORDERED: dexameTHASONE 20 MG/5 ML VIAL (J1100) IM ONE (20:00)
[2019-03-14] MEDS ORDERED: IPRATROPIUM 0.5MG/ALBUTEROL 2.5MG INH SOL UD 3ML (DUONEB)(J7620) NEB ONE (20:00)
[2019-03-14] MEDS ORDERED: MEDR4PAK PO (21:38)
[2019-03-14 21:54] VITALS: BP 126/59
--- NOTE | 2019-03-15 08:57 | REP ---
Chest x-ray: Two views. History: Productive cough and wheezing. Comparison study: September 06, 2017. Findings: The lungs are somewhat hyperinflated but clear. Pleural angles are sharp. Heart size is normal. There is a mild pectus on the lateral view. Pulmonary vasculature is not increased. No other bony abnormality is seen. Impression: No acute disease. Electronically Signed by Mejia Ortega MD 03/15/2019 08:48 A
== END 2019-03-14 22:05 | disposition home or self-care (01) ==
LOC: M ED 19:07
DX: J20.9 Acute bronchitis, unspecified (principal); I10 Essential (primary) hypertension; Z88.8 Allergy status to other drugs, medicaments and biological substances; J30.81 Allergic rhinitis due to animal (cat) (dog) hair and dander; J30.89 Other allergic rhinitis; Z79.899 Other long term (current) drug therapy; Z79.51 Long term (current) use of inhaled steroids
CPT/HCPCS: 71046; 94640; 96372; 99283; J1100

== ENCOUNTER 2019-05-04 22:00 | Emergency (ER) | payer MEDICARE, MEDICAID ==
[~2019-05-04] VITALS: Ht 167.6 cm; Wt 107.3 kg
[~2019-05-04 22:00] MED LIST changes: +FLOV100A3 INH; +MEDR4PAK PO
[2019-05-04] MEDS ORDERED: AZEL1SPR3 NARES (22:59)
[2019-05-04] MEDS ORDERED: AUGM875T28 PO (22:59)
[2019-05-04] MEDS ORDERED: AUGMENTIN 875 MG TAB PO ONE (23:00)
[2019-05-04 23:06] VITALS: BP 146/86
[2019-05-06] MEDS ORDERED: METAL LOCK LOOP XX ONE (01:43)
== END 2019-05-04 23:11 | disposition home or self-care (01) ==
LOC: M ED 22:00
DX: J01.91 Acute recurrent sinusitis, unspecified (principal); E11.9 Type 2 diabetes mellitus without complications; J30.81 Allergic rhinitis due to animal (cat) (dog) hair and dander; J30.2 Other seasonal allergic rhinitis; Z87.891 Personal history of nicotine dependence; Z79.899 Other long term (current) drug therapy; Z88.8 Allergy status to other drugs, medicaments and biological substances

== ENCOUNTER 2019-05-17 14:30 | Emergency (ER) | payer MEDICARE, MEDICAID ==
[~2019-05-17] VITALS: Ht 160 cm; Wt 106.8 kg
[2019-05-17 14:30] VITALS: BP 142/96
[~2019-05-17 14:30] MED LIST changes: +AZEL1SPR3 NARES
[2019-05-17] MEDS ORDERED: CLAR1TAB13 PO (14:37)
--- NOTE | 2019-05-17 17:49 | REP ---
Clinical: Chronic sinusitis. Technique: Four views of the sinuses. Findings: Mucosal thickening to the maxillary sinuses cannot be excluded. No obvious air fluid levels are identified. No foreign body. Osseous structures appear intact. Impression: Cannot exclude mucosal thickening of the maxillary sinuses. Otherwise unremarkable examination. Electronically Signed by Manohar Art MD 05/17/2019 05:41 P
[2019-05-17] MEDS ORDERED: LEVA750T7 PO (18:13)
== END 2019-05-17 18:46 | disposition home or self-care (01) ==
LOC: M ED 14:30
DX: J32.9 Chronic sinusitis, unspecified (principal); Z88.8 Allergy status to other drugs, medicaments and biological substances; J30.81 Allergic rhinitis due to animal (cat) (dog) hair and dander; F17.210 Nicotine dependence, cigarettes, uncomplicated

== ENCOUNTER → 2019-05-18 | Outpatient (REF) | payer MEDICARE, MEDICAID ==
[~2019-05-18] MED LIST changes: +CLAR1TAB13 PO
[2019-05-19 13:21] LABS: AMORPHOUS SEDIMENT LARGE (NEGATIVE); APPEARANCE, URINE TURBID (CLEAR); BACTERIA, URINE AUTO NEGATIVE (NEGATIVE); BILIRUBIN, URINE AUTO NEGATIVE (NEGATIVE); BLOOD, URINE BLOOD NEGATIVE (NEGATIVE); COLOR, URINE YELLOW (YELLOW); GLUCOSE, URINE (UA) AUTO NEGATIVE (NEGATIVE); KETONE, URINE AUTO TRACE mg/dL (NEGATIVE); LEUKOCYTE ESTERASE, URINE AUTO NEGATIVE (NEGATIVE); MUCUS, URINE MODERATE (NEGATIVE); NITRITE, URINE AUTO NEGATIVE (NEGATIVE); PROTEIN, URINE AUTO NEGATIVE (NEGATIVE); RBC, URINE AUTO 6 /HPF (0-3); SQUAMOUS EPITHELIAL CELL UR AU 0 /HPF (0-6); UROBILINOGEN, URINE AUTO 0.2 mg/dL (0.0-2.0); WBC, URINE AUTO 0 /HPF (0-3)
== END ==
LOC: M LAB REF 12:38
PROVIDERS: ATTEND Obstetrics & Gynecology
DX: N39.46 Mixed incontinence (principal)

== ENCOUNTER → 2019-06-17 | Outpatient (CLI) | payer MEDICARE, MEDICAID ==
[2019-06-17 15:24] LABS: BASO # 0.1 10^3/uL (0.0-0.2); BASO % 0.5 % (0.0-1.0); EOS # 0.3 10^3/uL (0.0-0.50); EOS % 2.9 % (0.0-3.0); HEMATOCRIT 40.8 % (36.0-47.0); HEMOGLOBIN 13.5 g/dl (12.0-15.5); LYMPH # 2.1 10^3/uL (1.5-4.5); LYMPH % 20.8 % (24.0-44.0); MEAN CORPUSCULAR HEMOGLOBIN 28.5 pg (27.0-33.0); MEAN CORPUSCULAR HGB CONC 33.1 g/dl (32.0-36.5); MEAN CORPUSCULAR VOLUME 86.1 fl (80.0-96.0); MONO # 0.4 10^3/uL (0.0-0.8); MONO % 4.1 % (0.0-5.0); NEUTROPHILS # 7.2 10^3/uL (1.8-7.7); NEUTROPHILS % 71.4 % (36.0-66.0); PLATELET COUNT, AUTOMATED 246 10^3/uL (150-450); RED BLOOD COUNT 4.74 10^6/uL (4.00-5.40); WHITE BLOOD COUNT 10.1 10^3/uL (4.0-10.0)
[2019-06-17 15:57] LABS: ALBUMIN 3.7 GM/DL (3.2-5.2); ALT/SGPT 19 U/L (12-78); BILIRUBIN,TOTAL 0.2 MG/DL (0.2-1.0); BLOOD UREA NITROGEN 15 MG/DL (7-18); CALCIUM LEVEL 9.6 MG/DL (8.5-10.1); CARBON DIOXIDE LEVEL 25 MEQ/L (21-32); CHLORIDE LEVEL 107 MEQ/L (98-107); CHOLESTEROL LEVEL 215 MG/DL (<200); CHOLESTEROL RISK RATIO 6.935 (<5); CREATININE FOR GFR 0.79 MG/DL (0.55-1.30); GLOMERULAR FILTRATION RATE > 60.0 (>51); GLUCOSE, FASTING 107 MG/DL (70-100); HDL CHOLESTEROL 31 MG/DL (>40); LDL CHOLESTEROL 148 MG/DL (<100); NON-HDL-C 184 MG/DL; POTASSIUM SERUM 3.8 MEQ/L (3.5-5.1); SODIUM LEVEL 139 MEQ/L (136-145); TOTAL PROTEIN 7.4 GM/DL (6.4-8.2); TRIGLYCERIDES LEVEL 182 MG/DL (<150)
== END ==
LOC: M LAB 14:48
PROVIDERS: ATTEND Family Medicine
DX: I10 Essential (primary) hypertension (principal)

== ENCOUNTER → 2019-06-17 | Outpatient (CLI) | payer MEDICARE, MEDICAID ==
--- NOTE | 2019-06-17 16:14 | REPMRS ---
Patient History The patient states she had a clinical breast exam in April 2019. Patient is postmenopausal. No known family history of cancer. 3D TOMOSYNTHESIS WAS PERFORMED. The [facility] lifetime risk for breast cancer is 12.7%. Digital Mammo Screening Bilat: June 17, 2019 - Exam #: [id number] Bilateral CC and MLO view(s) were taken. Technologist: Elidia Qureshi, Technologist Prior study comparison: August 03, 2017, bilateral digital mammo screening bilat, performed at [facility]. FINDINGS: The breast tissue is heterogeneously dense. This may lower the sensitivity of mammography. There has been no change in the appearance of the mammogram from the prior studies. There is a moderate amount of residual fibroglandular tissue which is fairly symmetric. There is no interval development of dominant mass, areas of architectural distortion, or clustered microcalcification typical of malignancy. Assessment: BI-RADS/ACR category 1 mammogram. Negative Mammogram. Recommendation Routine screening mammogram in 1 year (for women over age 40). This mammogram was interpreted with the aid of an FDA-approved computer-aided dectection system. Electronically Signed By: Yosi Ivory MD 06/17/19 [id number]
== END ==
LOC: M RAD 15:12
PROVIDERS: ATTEND Obstetrics & Gynecology
DX: Z12.31 Encounter for screening mammogram for malignant neoplasm of breast (principal); Z78.0 Asymptomatic menopausal state; I10 Essential (primary) hypertension

== ENCOUNTER 2019-07-09 22:50 | Emergency (ER) | payer MEDICARE, MEDICAID ==
[~2019-07-09] VITALS: Ht 160 cm; Wt 109.1 kg
[2019-07-10] MEDS ORDERED: KEFL500C17 PO (00:48)
[2019-07-10] MEDS ORDERED: CEPHALEXIN 500 MG CAP PO ONE (01:00)
[2019-07-10 01:15] VITALS: BP 150/76
== END 2019-07-10 01:16 | disposition home or self-care (01) ==
LOC: M ED 22:50
DX: S80.862A Insect bite (nonvenomous), left lower leg, initial encounter (principal); W57.XXXA Bitten or stung by nonvenomous insect and other nonvenomous arthropods, initial encounter; Y92.9 Unspecified place or not applicable; Y93.9 Activity, unspecified; Y99.9 Unspecified external cause status; I10 Essential (primary) hypertension; H54.8 Legal blindness, as defined in USA; Z79.899 Other long term (current) drug therapy; J30.81 Allergic rhinitis due to animal (cat) (dog) hair and dander; J30.2 Other seasonal allergic rhinitis; Z88.8 Allergy status to other drugs, medicaments and biological substances

== ENCOUNTER → 2019-08-08 | Outpatient (REF) ==
[~2019-08-08] MED LIST changes: +CEFP500T PO; +KEFL500C17 PO
== END ==
LOC: M LAB LCGH 15:39
PROVIDERS: ATTEND Physician Assistant
DX: D48.5 Neoplasm of uncertain behavior of skin (principal)

== ENCOUNTER 2019-08-09 18:36 | Emergency (ER) | payer MEDICARE, MEDICAID ==
[~2019-08-09] VITALS: Ht 160 cm; Wt 108.2 kg
[~2019-08-09 18:36] MED LIST changes: -CEFP500T PO
[2019-08-09 18:37] VITALS: BP 167/89
[2019-08-09] MEDS ORDERED: CEFP500T PO (21:18)
[2019-08-09] MEDS ORDERED: AZEL1SPR3 NARES (21:18)
[2019-08-09] MEDS ORDERED: CEFPROZIL 125 MG/5 ML PO ONE (21:30)
[2019-08-09] MEDS ORDERED: AZELASTINE 137MCG NASAL SPY 30 ML (ASTELIN) ONE (21:45)
[2019-08-10] MEDS ORDERED: AZELASTINE 137MCG NASAL SPY 30 ML (ASTELIN) SCH (09:00)
== END 2019-08-09 21:57 | disposition home or self-care (01) ==
LOC: M ED 18:36
DX: J32.2 Chronic ethmoidal sinusitis (principal); Z88.8 Allergy status to other drugs, medicaments and biological substances

== ENCOUNTER → 2019-08-19 | Outpatient (REF) | payer MEDICARE, MEDICAID ==
[~2019-08-19] MED LIST changes: +CEFP500T PO
[2019-08-19 19:10] LABS: APPEARANCE, URINE HAZY (CLEAR); BACTERIA, URINE AUTO NEGATIVE (NEGATIVE); BILIRUBIN, URINE AUTO NEGATIVE (NEGATIVE); BLOOD, URINE BLOOD 1+ (NEGATIVE); COLOR, URINE YELLOW (YELLOW); GLUCOSE, URINE (UA) AUTO NEGATIVE (NEGATIVE); KETONE, URINE AUTO NEGATIVE (NEGATIVE); LEUKOCYTE ESTERASE, URINE AUTO TRACE (NEGATIVE); NITRITE, URINE AUTO NEGATIVE (NEGATIVE); PROTEIN, URINE AUTO NEGATIVE (NEGATIVE); RBC, URINE AUTO 0 /HPF (0-3); SPECIFIC GRAVITY URINE AUTO 1.016 (1.002-1.035); SQUAMOUS EPITHELIAL CELL UR AU 3 /HPF (0-6); UROBILINOGEN, URINE AUTO 0.2 mg/dL (0.0-2.0); WBC, URINE AUTO 5 /HPF (0-3)
== END ==
LOC: M LAB REF 17:03
PROVIDERS: ATTEND Obstetrics & Gynecology
DX: R35.0 Frequency of micturition (principal)

== ENCOUNTER → 2019-09-01 | Outpatient (REF) | payer MEDICARE, MEDICAID ==
[2019-09-01 16:01] LABS: APPEARANCE, URINE HAZY (CLEAR); BACTERIA, URINE AUTO NEGATIVE (NEGATIVE); BILIRUBIN, URINE AUTO NEGATIVE (NEGATIVE); BLOOD, URINE BLOOD NEGATIVE (NEGATIVE); COLOR, URINE YELLOW (YELLOW); GLUCOSE, URINE (UA) AUTO NEGATIVE (NEGATIVE); KETONE, URINE AUTO NEGATIVE (NEGATIVE); LEUKOCYTE ESTERASE, URINE AUTO NEGATIVE (NEGATIVE); MUCUS, URINE SMALL (NEGATIVE); NITRITE, URINE AUTO NEGATIVE (NEGATIVE); PROTEIN, URINE AUTO NEGATIVE (NEGATIVE); RBC, URINE AUTO 1 /HPF (0-3); SPECIFIC GRAVITY URINE AUTO 1.021 (1.002-1.035); SQUAMOUS EPITHELIAL CELL UR AU 2 /HPF (0-6); UROBILINOGEN, URINE AUTO 0.2 mg/dL (0.0-2.0); WBC, URINE AUTO 1 /HPF (0-3)
== END ==
LOC: M LAB REF 15:46
PROVIDERS: ATTEND Obstetrics & Gynecology
DX: N39.46 Mixed incontinence (principal); N32.81 Overactive bladder

== ENCOUNTER → 2019-11-07 | Outpatient (REF) | payer MEDICARE, MEDICAID ==
[2019-11-07 18:57] LABS: APPEARANCE, URINE CLOUDY (CLEAR); BACTERIA, URINE AUTO NEGATIVE (NEGATIVE); BILIRUBIN, URINE AUTO NEGATIVE (NEGATIVE); BLOOD, URINE BLOOD NEGATIVE (NEGATIVE); CALCIUM OXALATE CRYSTALS SMALL; COLOR, URINE YELLOW (YELLOW); GLUCOSE, URINE (UA) AUTO NEGATIVE (NEGATIVE); KETONE, URINE AUTO NEGATIVE (NEGATIVE); LEUKOCYTE ESTERASE, URINE AUTO NEGATIVE (NEGATIVE); MUCUS, URINE SMALL (NEGATIVE); NITRITE, URINE AUTO NEGATIVE (NEGATIVE); PROTEIN, URINE AUTO NEGATIVE (NEGATIVE); RBC, URINE AUTO 1 /HPF (0-3); SPECIFIC GRAVITY URINE AUTO 1.026 (1.002-1.035); SQUAMOUS EPITHELIAL CELL UR AU 4 /HPF (0-6); UROBILINOGEN, URINE AUTO 0.2 mg/dL (0.0-2.0); WBC, URINE AUTO 2 /HPF (0-3)
== END ==
LOC: M LAB REF 17:40
PROVIDERS: ATTEND Obstetrics & Gynecology
DX: N39.9 Disorder of urinary system, unspecified (principal)

== ENCOUNTER → 2019-11-22 | Outpatient (RCR) | payer MEDICARE, MEDICAID | LOC: M PT 10-24 12:55 | DX: M17.0 Bilateral primary osteoarthritis of knee (principal) ==

== ENCOUNTER 2019-11-24 13:36 | Outpatient (RCR) | payer MEDICARE, MEDICAID ==
[~2019-11-24 13:36] MED LIST changes: -RANI150T
[2019-12-14] MEDS ORDERED: COLLCAP PO (11:51)
[2019-12-14] MEDS ORDERED: CALC600T5 PO (11:51)
[2019-12-14] MEDS ORDERED: VITA500T PO (11:51)
[2019-12-14] MEDS ORDERED: POTA540T PO (11:51)
[2019-12-14] MEDS ORDERED: MELO7.5T35 PO (11:51)
[2019-12-14] MEDS ORDERED: MAGN1CAP PO (11:51)
[2019-12-14] MEDS ORDERED: VITA500079 PO (11:51)
[2019-12-14] MEDS ORDERED: MULTCAP PO (11:51)
[2019-12-14] MEDS ORDERED: ESTR1CRE PV (12:15)
== END 2019-12-23 ==
LOC: M PT 13:36
DX: M17.0 Bilateral primary osteoarthritis of knee (principal)

== ENCOUNTER → 2019-12-19 | Outpatient (CLI) | payer MEDICARE, MEDICAID ==
[~2019-12-19] MED LIST changes: +AMBI5TAB PO; +AZEL0.1S NARES; +CALC600T5 PO; +COLLCAP PO; +ESTR1CRE PV; +MAGN1CAP PO; +MELO7.5T35 PO; +MULTCAP PO; +POTA540T PO; +VITA500079 PO; +VITA500T PO
[2019-12-19 15:31] LABS: HEMATOCRIT 42.1 % (36.0-47.0); HEMOGLOBIN 13.5 g/dl (12.0-15.5); MEAN CORPUSCULAR HEMOGLOBIN 27.8 pg (27.0-33.0); MEAN CORPUSCULAR HGB CONC 32.1 g/dl (32.0-36.5); MEAN CORPUSCULAR VOLUME 86.6 fl (80.0-96.0); PLATELET COUNT, AUTOMATED 232 10^3/uL (150-450); RED BLOOD COUNT 4.86 10^6/uL (4.00-5.40); WHITE BLOOD COUNT 8.4 10^3/uL (4.0-10.0)
[2019-12-19 15:33] LABS: INR 1.1; PROTHROMBIN TIME 13.9 SECONDS (11.8-14.0)
[2019-12-19 15:52] LABS: ALBUMIN 3.8 GM/DL (3.2-5.2); ALT/SGPT 18 U/L (12-78); BILIRUBIN,TOTAL 0.4 MG/DL (0.2-1.0); BLOOD UREA NITROGEN 16 MG/DL (7-18); CALCIUM LEVEL 8.9 MG/DL (8.5-10.1); CARBON DIOXIDE LEVEL 23 MEQ/L (21-32); CHLORIDE LEVEL 107 MEQ/L (98-107); ERYTHROCYTE SEDIMENTATION RATE 20 mm/hr (0-30); GLOMERULAR FILTRATION RATE > 60.0 (>51); GLUCOSE, FASTING 141 MG/DL (70-100); POTASSIUM SERUM 3.5 MEQ/L (3.5-5.1); SODIUM LEVEL 138 MEQ/L (136-145); TOTAL PROTEIN 7.2 GM/DL (6.4-8.2)
--- NOTE | 2019-12-19 17:50 | REP ---
PA and lateral chest: Comparison is 09/06/2017. The lung milan are clear. The cardiac size is normal. The roya, mediastinum, and skeletal structures are unremarkable. Impression: Negative PA and lateral chest. There is no interval change. Electronically Signed by Yosi Quevedo MD 12/19/2019 05:42 P
--- NOTE | 2019-12-22 01:00 | ECGEPIP ---
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
== END ==
LOC: M LAB 14:12
PROVIDERS: ATTEND Orthopaedic Surgery
DX: Z01.818 Encounter for other preprocedural examination (principal); Z79.01 Long term (current) use of anticoagulants

== ENCOUNTER 2019-12-26 12:05 | Inpatient (IN) | payer MEDICARE, MEDICAID ==
--- NOTE | 2019-12-23 14:53 | HPE ---
DATE OF ADMISSION: 12/26/2019 ATTENDING PHYSICIAN: Dr. Mann CHIEF COMPLAINT: Left knee degenerative arthritis. HISTORY: The patient is a 54-year-old female with progressively worsening left knee pain and stiffness. She failed to improve with conservative measures. She continues to have symptoms with weightbearing activities and activities of daily living. She has consented for an elective left total knee arthroplasty with Dr. Mann for her continued symptoms. Medical optimization completed with Dr. Patel and was available for review. CURRENT MEDICATIONS: - Flovent 100 mcg 1 puff twice daily - estradiol 1 mg per gram gel as directed vaginally twice weekly - irbesartan 150 mg daily - Protonix 28 mg daily - Ambien 10 mg every evening ALLERGIES: DECONGESTANTS, STEROIDS, SYMBICORT, ALBUTEROL. CHRONIC MEDICAL CONDITIONS: Mild asthma, chronic sinus issues, hypertension, gastroesophageal reflux disease, uterine fibroids, palpitations status post ablation, obesity, hyperlipidemia, Natalya syndrome type 2, intermittent low back pain, hearing loss and wears a hearing aid. PAST SURGICAL HISTORY" Cardiac catheterization / ablation, multiple right-sided sinus surgeries, deviated septum repair, bladder surgery for incontinence, ovarian cystectomy, right salpingectomy, tonsillectomy and adenoidectomy. SOCIAL HISTORY: The patient is a former smoker and quit greater than 10 years ago. No alcohol use. REVIEW OF SYSTEMS: The patient denies fevers, chills, nausea, vomiting or diarrhea. She denies chest pain, shortness of breath, lightheadedness, dizziness or headaches. She denies any recent upper respiratory or urinary tract infection symptoms. She denies any abdominal pain. The patient does continue to have left knee pain with weightbearing activities and activities of daily living. PHYSICAL EXAMINATION: General: Well-nourished, well-developed female in no apparent distress. She is alert, oriented and cooperative. Mood and affect are appropriate. Vital signs: Height 63 inches, weight 245.4 pounds, temperature 99.2, respirations 12, heart rate 780, blood pressure 120/68. Neck: Supple without lymphadenopathy. Heart: Regular rate and rhythm. Lungs: Clear to auscultation bilaterally. Abdomen: Bowel sounds are present. Abdomen is soft and nontender to palpation. Musculoskeletal: Left knee exhibits no erythema, edema or ecchymosis. There is quite a bit of tenderness along the medial joint line. The patient can extend knee fully and flex to approximately 90 degrees. Left lower extremity strength is 5/5. No hip irritability elicited with range of motion testing. The patient's calf is soft, nontender to palpation with no palpable cords noted. She is neurovascularly intact distally. LABORATORY DATA Chest x-ray, negative PA and lateral chest without interval change. Left knee x-ray notable for end-stage degenerative changes. EKG sinus tachycardia with possible anterior myocardial infarction, probably old versus poor R-wave progression. Comprehensive metabolic profile: Fasting glucose elevated at 141, BUN 16, creatinine was 0.70, GFR greater than 60, sodium 138, potassium 3.5, chloride 107, carbon dioxide 23, anion gap 8, calcium 8.9, AST 11, ALT 18, alkaline phosphatase 75, total bilirubin 0.4, total protein 7.2, albumin 3.8, albumin-globulin ratio 1.12. Prothrombin time 13.9, INR 1.10. Complete blood count: ESR 20, WBC is 8.4, RBCs 4.86, hemoglobin 13.5, hematocrit 42.1, platelets 232. IMPRESSION: Left knee degenerative arthritis with x-rays notable for end-stage degenerative changes. PLAN: The patient has consented for an elective left total knee arthroplasty with Dr. Mann for her continued symptoms. Medical optimization completed with Dr. Patel and was reviewed today. Reviewed pre and postoperative instructions to include but not limited to needing to be nothing by mouth after midnight, length of stay, when to stop antiinflammatories and anticoagulants. The patient will also follow the primary manager managed care's recommendations on how to take her daily medications. ROHAN
[~2019-12-26] VITALS: Ht 160 cm; Wt 118.2 kg
[~2019-12-26 12:05] MED LIST changes: +ACETAMINOPHEN 500 MG TAB PO ONE; -AMBI5TAB PO; -AZEL0.1S NARES; +LR 1,000 ML IV ONE; +ceFAZolin SOD 2 GM in IV 1 EA IV ONE
[2019-12-26] MEDS ORDERED: PROT1TAB2 PO (13:17)
[2019-12-26] MEDS ORDERED: AMBI5TAB PO (13:17)
[2019-12-26] MEDS ORDERED: BUPIVACAINE HCL 0.25% 10 ML VIAL As Ordered ONE (14:19)
[2019-12-26] MEDS ORDERED: TRANEXAMIC ACID 100 MG/ML 10ML VIAL As Ordered ONE (14:19)
[2019-12-26] MEDS ORDERED: BUPIVACAINE LIPOSOME/PF 1.3% 20ML VIAL (13.3MG/ML)(EXPAREL)(C9290 PER1MG) As Ordered ONE (14:20)
[2019-12-26] MEDS ORDERED: ceFAZolin 1GM INJ (J0690 PER 500MG) As Ordered ONE (14:20)
[2019-12-26] MEDS ORDERED: EPINEPHrine INJ 1 MG/ML 1ML VIAL As Ordered ONE (14:20)
[2019-12-26] MEDS ORDERED: fentaNYL 100 MCG/2 ML INJECTION (J3010) As Ordered ONE ×2 (15:09→16:33)
[2019-12-26] MEDS ORDERED: MIDAZOLAM INJ 2 MG/2 ML VIAL (J2250) As Ordered ONE ×2 (15:09→16:33)
[2019-12-26] MEDS ORDERED: fentaNYL 100 MCG/2 ML INJECTION (J3010) IV ONE (15:45)
[2019-12-26] MEDS ORDERED: MIDAZOLAM INJ 2 MG/2 ML VIAL (J2250) IV ONE ×2 (15:45)
[2019-12-26] MEDS ORDERED: dexameTHASONE 10 MG/1 ML VIAL PRES.FREE (J1100) ONE (16:19)
[2019-12-26] MEDS ORDERED: LIDOCAINE 1% MDV 20ML VIAL ONE (16:19)
[2019-12-26] MEDS ORDERED: ROPIvacaine 0.5% 30 ML INJECTION (J2795 PER 1MG) ONE (16:19)
[2019-12-26] MEDS ORDERED: dexameTHASONE 4 MG/ML 1ML VIAL (J1100) As Ordered ONE (16:30)
[2019-12-26] MEDS ORDERED: propofoL 500 MG/50 ML VIAL As Ordered ONE ×2 (16:30→17:42)
[2019-12-26] MEDS ORDERED: LIDOCAINE 2% INJ 100 MG/5 ML SDV (FOR ANES.) As Ordered ONE (16:30)
[2019-12-26] MEDS ORDERED: ONDANSETRON 4MG/2ML VIAL (J2405) As Ordered ONE (16:30)
[2019-12-26] MEDS ORDERED: ACETAMINOPHEN 1000MG 100ML IV BTL (OFIRMEV) (J0131 PER 10MG) As Ordered ONE (17:16)
--- NOTE | 2019-12-26 19:09 | CR.PDOC ---
General Date of Consultation: Dec 26, 2019 Referring Provider: Meredith Mann Consultation TIME OF SERVICE: 7:20 PM REASON FOR CONSULTATION/CHIEF COMPLAINT: Postoperative care HISTORY OF PRESENT ILLNESS: This is a 54-year-old female who was admitted for elective left total knee arthroplasty and revision to manage severe degenerative arthritis. She is evaluated in the postoperative area and reported that her pain was 10 out of 10, but otherwise denied having any other symptoms such as shortness of breath. HOME MEDICATIONS: Please see below. ALLERGIES: Please see below. 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 Morbid obesity History of Ovarian cystectomy. History of Right salpingectomy History of Tonsillectomy with adenoidectomy FAMILY HISTORY: Asthma Skin cancer Dyslipidemia. Coronary artery disease SOCIAL HISTORY: A former smoker. She doesn't drink PHYSICAL EXAMINATION: VITAL SIGNS: Please see below. GENERAL APPEARANCE: Obese, well-developed, slightly anxious HEENT: Normocephalic, atraumatic. Mucous membranes moist and pink. RESPIRATORY: There is equal air entry bilaterally, the lungs are clear to auscultation CARDIOVASCULAR: Regular rate and rhythm. No murmurs, rubs or gallops EXTREMITIES: The left leg from the mid thigh down to the ankle are wrapped in clean and dry dressings PSYCHIATRIC: Alert and oriented to person, place and time, able to understand and follow commands LABORATORY DATA: Please see below. ASSESSMENT/PLAN: Ms. Castaneda is a 54-year-old female with past with history of HTN, asthma, Usher syndrome, uterine fibroids, and morbid obesity, who was admitted for elective left total knee replacement; we were consulted for postoperative care. 1. Left knee DJD status post total knee replacement - management per primary team 2. Chronic HTN - resume Irbesartan tomorrow if her BP permits 3. Chronic Asthma - resume Xopenex 4. Chronic Sinusitis - resume Azelastine 5. GERD - tums 6. Obesity BMI 43.8 -f/u w PCP for STOP BANG questionnaire, software test technician consult & referral for Bariatric Surgeon / recommend cardiovascular exercise for 40 min 4-5 days a week Rest per primary team. Thank you for consulting us. We will continue to follow the patient with you Vital Signs/I&O Vital Signs Date Time Temp Pulse Resp B/P (MAP) Pulse Ox O2 Delivery O2 Flow Rate FiO2 12/26/19 18:55 86 16 120/65 (83) 95 Room Air 12/26/19 18:40 97.9 2 Allergies Coded Allergies: Animal Dander (Verified Allergy, Unknown, 12/14/19) ENVIROMENTAL (Verified Allergy, Unknown, 12/14/19) pseudoephedrine (Verified Allergy, Unknown, 12/14/19) beclomethasone (Verified Adverse Reaction, Intermediate, hypertension, 12/14/19) budesonide (Verified Adverse Reaction, Intermediate, hypertension, heart problems, 12/14/19) formoterol (Verified Adverse Reaction, Intermediate, hypertension, heart problems, 12/14/19) Home Medications Scheduled Ascorbic Acid (Vitamin C) 500 Mg Tablet, 1,000 MG PO DAILY, (Reported) Ascorbic Acid/Collagen Hydr (Collagen Plus Vit C Capsule) 1 Each Capsule, 1 CAP PO DAILY, (Reported) Azelastine HCl (Azelastine HCl) 0.1% [place].pump, 2 SPRAY NARES BID for 30 Days, #30 Calcium Carbonate (Calcium) 600 Mg Tablet, 1,200 MG PO DAILY, (Reported) Cholecalciferol (Vitamin D3) (Vitamin D3) 5,000 Unit Tab.rapdis, 5,000 UNIT PO DAILY, (Reported) Estradiol (Estrace) 42.5 Gm Cream.appl, 1 GRAM VA 2XW, (Reported) Fluticasone Propionate (Flovent Diskus) 100 Mcg Blst.w.dev, 1 PUFF INH BID, #1 (Reported) Irbesartan (Irbesartan) 150 Mg Tab, 150 MG PO DAILY, (Reported) Levalbuterol Hydrochloride (Xopenex Hfa) 45 Mcg/Act Aer, 2 PUFF INH ASDIRECTED, (Reported) Magnesium Oxide (Magnesium) 500 Mg Capsule, 500 MG PO DAILY, (Reported) Multivitamin (Multivitamins) 1 Each Capsule, 1 CAP PO DAILY, (Reported) Pantoprazole Sodium (Protonix) 40 Mg Tablet.dr, 1 TAB PO DAILY for 30 Days, #30 (Reported) Potassium Citrate (Potassium Citrate) 5 Meq Tablet.er, 540 MG PO DAILY, (Reported) Scheduled PRN Loratadine/Pseudoephedrine (Claritin-D 24 Hour Tablet) 1 Each Tab.er.24h, 1 TAB PO DAILYPRN PRN for CONGESTION for 10 Days, #10 (Reported) Meloxicam (Meloxicam) 7.5 Mg Tablet, 7.5 MG PO BIDP PRN for PAIN, (Reported) Zolpidem Tartrate (Ambien) 5 Mg Tablet, 1 TAB PO QPMP PRN for sleep for 30 Days, #30 (Reported) RAFFY MULLINS MD Dec 26, 2019 19:09
[2019-12-26] MEDS ORDERED: ONDANSETRON 4MG/2ML VIAL (J2405) IV PRN ×2 (19:15→19:30)
[2019-12-26] MEDS ORDERED: LR 1,000 ML IV SCH ×2 (19:15)
[2019-12-26] MEDS ORDERED: oxyCODONE 5MG TAB PO PRN (19:15)
[2019-12-26] MEDS: fentaNYL 100 MCG/2 ML INJECTION (J3010) IV PRN ×3 (19:27→19:38)
[2019-12-26] MEDS ORDERED: PERCOCET 5MG/325MG TAB PO PRN ×2 (19:30)
[2019-12-26] MEDS ORDERED: MORPHINE 2 MG/ML 1ML VIAL (J2270) IV PRN (19:30)
[2019-12-26 20:15] VITALS: BP 154/90
[2019-12-26] MEDS ORDERED: LEVALBUTEROL HFA 45MCG/ACT 15 GM INHALER INH PRN (20:15)
[2019-12-26] MEDS ORDERED: AZEL0.1S NARES (20:24)
[2019-12-26 20:45] VITALS: BP 153/89
[2019-12-26] MEDS: CALCIUM CARBONATE 500 MG CHEW U/D PO SCH (21:44)
[2019-12-26 21:45] VITALS: BP 173/101
[2019-12-26 22:45] VITALS: BP 178/99
--- NOTE | 2019-12-26 23:26 | RO ---
DATE OF PROCEDURE: 12/26/2019 PREPROCEDURE DIAGNOSIS: Left knee degenerative arthritis. POSTPROCEDURE DIAGNOSIS: Left knee degenerative arthritis. PROCEDURE: Left total knee arthroplasty using a size 5 narrow cruciate-retaining femoral component and a 3 tibial tray with a 6 mm rotating platform polyethylene insert and a 32 mm polyethylene button. All components were cemented. Prosthesis was made by [employer]. It was an Attune knee. SURGEON: Dr. Meredith Mann RODEO RIDER: Ms. Yarelis Sauer ANESTHESIA: Spinal with left femoral nerve block. COMPLICATIONS: None. ESTIMATED BLOOD LOSS: 20 mL. SPECIMENS: Joint surface. FINDINGS: She had degenerative arthritis medial and lateral compartments, and there was a large disc of osteochondral loose body that was floating within the lateral gutter; it was about 3-4 cm in diameter. DESCRIPTION OF PROCEDURE: Antibiotics were given intravenously preoperatively and then successful left femoral nerve block and then a spinal anesthetic was induced. Tourniquet was placed on the left upper thigh and not inflated. Left lower extremity was carefully prepped and draped in the usual sterile fashion, leg elevated, and after appropriate time-out, tourniquet was inflated. Then, a longitudinal incision was made for a medial parapatellar approach to the knee. Bovie cautery was used to coagulate crossing vessels. Subperiosteal dissection around the proximal, medial and lateral tibial plateau was performed and the patella was everted, and the knee flexed. The drill was placed down the center of the femoral canal followed by the intramedullary jordan and the distal femoral cutting jig set at 5 degrees of valgus for a left knee at 9 mm resection depth. Block was pinned into position, then the distal femoral cut performed. AP sizing jig measured for a size 5. Three degrees of external rotation were dialed in, pins placed, 4-in-1 block applied, anterior, posterior, chamfer cuts performed. At this point, the sulcus jig for the sulcus osteotomy was applied to the femur and then the sulcus osteotomy performed. We then exposed the proximal tibia using the extramedullary alignment jig to estimate being parallel to the mechanical axis of the tibia. We referenced off the medial tibial condyle at 4 mm resection level. The block was pinned into position. Extramedullary jordan confirmed we appeared to be parallel to the mechanical axis. The proximal tibial osteotomy was then performed. We then placed the lamina call circuit worker laterally and performed a completion medial meniscectomy and debridement of the posteromedial osteophytes. We then placed the lamina call circuit worker medially and performed a completion lateral meniscectomy and debridement of the posterolateral osteophytes. The spacer blocks were then trialed. The 6 mm actually fit; it was a bit snug both in flexion and in extension and the proximal tibial osteotomy turned out to be quite thin, so I elected to take 2 more mm off the proximal tibia. I reapplied the proximal tibial jig, pinned it in position, proximal tibial osteotomy was performed, and then we trialed the spacer once again. The summit fit very nicely with good symmetry to varus/valgus stress testing both in flexion and in extension. We then exposed the proximal tibia, sized for a #3 tibial tray, which was pinned into position followed by the reamer and broach, then the trial polyethylene placed, the trial femoral component was placed. Then, we brought the knee into extension, everted the patella and performed a patellar osteotomy, sized for a 32 button, lug holes were drilled, trial placed, and the patellofemoral tracking was anatomic. We drilled the lug holes for the femur at this point, then removed all the trial components and placed Exparel in the subperiosteal tissues around the distal femur and the proximal tibia. At this point, Ms. Yarelis Sauer mixed the cement on the back table as I prepared the bony surfaces for cementing with a copious amount of pulsatile lavage irrigant solution. Ms. Yarelis Sauer was also critical to the success of this difficult procedure by helping to manipulate the knee, helped to close the wound, helped to mix the cement, helped to prepare the patient, and helped with appropriate soft tissue retraction such that I could perform the operation smoothly, efficiently and safely. After all of the bony surfaces were thoroughly cleansed and dried, I cemented the tibial tray, removed excess cement, placed the polyethylene, and then we cemented the femoral component. However, we could not get the femoral component onto the distal femur and had to remove the polyethylene from the tibial tray, cement the femoral component on, then place the polyethylene. Then, we brought the knee out in extension, everted the patella, and cemented the patellar button, held it with a clamp until the cement hardened with the knee in full extension. We copiously pulsatile lavage irrigated out the knee joint as we were waiting for the cement to harden and then placed tranexamic acid in the depths of the knee and throughout the wound and then closed the apex of the arthrotomy with two #1 PDS sutures, the medial parapatellar area was closed with a #1 PDS suture. We then closed the capsule with a running double-armed #1 Stratafix, then removed the tourniquet. We copiously irrigated again and then we closed the deep subdermal tissues with interrupted #2-0 PDS sutures, then the skin was closed with liane, covered by an Optifoam and a dry sterile bulky dressing. Then, the patient was transferred to the recovery room in stable condition. There were no intraoperative complications.
[2019-12-26 23:45] VITALS: BP 142/87
[2019-12-27] MEDS ORDERED: PERCOCET 5MG/325MG TAB PO PRN (00:30)
[2019-12-27 00:45] VITALS: BP 142/91
[2019-12-27] MEDS: PERCOCET 5MG/325MG TAB PO PRN ×3 (01:42→19:28)
[2019-12-27] MEDS: ceFAZolin SOD 2 GM in IV 1 EA IV SCH ×3 (01:42→18:41)
[2019-12-27 06:00] VITALS: BP 133/74
[2019-12-27] MEDS ORDERED: PERC5TAB12 PO (06:41)
[2019-12-27] MEDS ORDERED: XARE10TA PO (06:41)
[2019-12-27 07:00] LABS: HEMATOCRIT 38.3 % (36.0-47.0); HEMOGLOBIN 12.6 g/dl (12.0-15.5); MEAN CORPUSCULAR HEMOGLOBIN 28.5 pg (27.0-33.0); MEAN CORPUSCULAR HGB CONC 32.9 g/dl (32.0-36.5); MEAN CORPUSCULAR VOLUME 86.7 fl (80.0-96.0); PLATELET COUNT, AUTOMATED 235 10^3/uL (150-450); RED BLOOD COUNT 4.42 10^6/uL (4.00-5.40); WHITE BLOOD COUNT 12.5 10^3/uL (4.0-10.0)
--- NOTE | 2019-12-27 07:11 | REP ---
LEFT KNEE: Two views. HISTORY: Postop. Comparison study August 01, 2014. FINDINGS: AP and lateral views left knee demonstrate left knee arthroplasty components in good position. Anterior skin liane are present. Periarticular soft tissue emphysema is seen. IMPRESSION: Status post left knee arthroplasty. Electronically Signed by Mejia Ortega MD 12/27/2019 08:16 A
[2019-12-27 07:29] LABS: ALBUMIN 3.1 GM/DL (3.2-5.2); ALT/SGPT 18 U/L (12-78); BILIRUBIN,TOTAL 0.3 MG/DL (0.2-1.0); BLOOD UREA NITROGEN 10 MG/DL (7-18); CALCIUM LEVEL 8.6 MG/DL (8.5-10.1); CARBON DIOXIDE LEVEL 25 MEQ/L (21-32); CHLORIDE LEVEL 107 MEQ/L (98-107); CREATININE FOR GFR 0.72 MG/DL (0.55-1.30); GLOMERULAR FILTRATION RATE > 60.0 (>51); GLUCOSE, FASTING 170 MG/DL (70-100); SODIUM LEVEL 139 MEQ/L (136-145); TOTAL PROTEIN 6.8 GM/DL (6.4-8.2)
[2019-12-27] MEDS: FLUTICASONE HFA 44 MCG 10.6GM INHALER (FLOVENT) INH SCH ×2 (08:00→20:00)
[2019-12-27] MEDS: MOM 30ML SUSPENSION UDC PO SCH (09:30)
[2019-12-27] MEDS: SENOKOT S TAB PO SCH ×2 (09:31→20:25)
[2019-12-27] MEDS: MIRALAX *UNIT DOSE* 17GM PACKET PO SCH (09:31)
[2019-12-27] MEDS: CALCIUM CARBONATE 500 MG CHEW U/D PO SCH ×3 (09:31→20:26)
[2019-12-27] MEDS ORDERED: zolPIDEM TARTRATE 5 MG TAB PO PRN (10:15)
[2019-12-27] MEDS ORDERED: AZELASTINE 137MCG NASAL SPY 30 ML (ASTELIN) PRN (10:15)
[2019-12-27] MEDS: ASCORBIC ACID 500 MG TAB PO SCH (11:56)
[2019-12-27] MEDS: IRBESARTAN 150 MG TAB PO SCH (11:56)
[2019-12-27] MEDS: PANTOPRAZOLE 40MG TAB (PROTONIX) PO SCH (11:56)
[2019-12-27] MEDS: MORPHINE 15 MG SA TAB PO SCH ×2 (12:21→20:26)
--- NOTE | 2019-12-27 12:35 | IPNPDOC ---
Subjective Date Seen The patient was seen on 12/27/19. Subjective Chief Complaint/HPI Patient is comfortable physical therapy in progress, possible transfer to rehabilitation General: Denies: ROS Unobtainable, Chills, Night Sweats, Fatigue, Malaise, Normal Appetite, Other Symptoms Constitutional: Denies: Chills, Fever, Malaise, Night Sweats, Weakness, Fatigue, Weight Loss, Lethargy, Other Pulmonary: Denies: Dyspnea, Cough, Pleuritic Chest Pain, Other Symptoms Cardiovascular: Denies: Chest Pain, Palpitations, Orthopnea, Paroxysmal Noc. Dyspnea, Edema, Lt Headedness, Other Symptoms Gastrointestinal: Denies: Nausea, Vomiting, Abdominal Pain, Diarrhea, Constipation, Melena, Hematochezia, Other Symptoms Endocrine: Denies: Polydipsia, Polyphagia, Polyuria, Heat Intolerance, Cold Intolerance, Other Endocrine Sx Musculoskeletal: Denies: Neck Pain, Back Pain, Shoulder Pain, Arm Pain, Hand Pain, Leg Pain, Foot Pain, Joint Pain, Muscle Pain, Spasms, Other Symptoms Neurological: Denies: Weakness, Numbness, Incoordination, Change in speech, Confusion, Seizures, Other Symptoms Objective Physical Examination General Exam: Positive: Alert, Cooperative Eye Exam: Positive: PERRLA ENT Exam: Positive: Atraumatic, Mucous membr. moist/pink Neck Exam: Positive: Supple Chest Exam: Positive: Clear to auscultation, Normal air movement Heart Exam: Positive: Rate Normal, Normal S1 Abdomen Exam: Positive: Normal bowel sounds, Soft, Tenderness Skin Exam: Positive: Breakdown Assessment /Plan Problems (1) Osteoarthritis of left knee Status: Acute Problem Text: Status post left total knee replacement Physical therapy in progress Continue pain management As planned to possibly rehabilitation Further, as per orthopedic surgery Continue all home meds (2) HTN (hypertension) Status: Chronic Problem Text: Continue home meds (3) Asthma Status: Chronic Problem Text: Continue home meds Plan/VTE VTE Prophylaxis Ordered?: Yes VS, I&O, 24H, Fishbone Vital Signs/I&O Vital Signs Date Time Temp Pulse Resp B/P (MAP) Pulse Ox O2 Delivery O2 Flow Rate FiO2 12/27/19 12:21 18 Room Air 12/27/19 11:56 133/74 12/27/19 06:00 98.6 98 93 12/26/19 19:38 2.0 I&O- Last 24 Hours up to 6 AM 12/27/19 06:00 Intake Total 2100 ml Output Total 1220 ml Balance 880 ml Laboratory Data 24H LABS Laboratory Tests 2 12/27/19 06:26: Nucleated Red Blood Cells % (auto) 0.0, Anion Gap 7L, Glomerular Filtration Rate > 60.0, Calcium Level 8.6, Total Bilirubin 0.3, Aspartate Amino Transf (AST/SGOT) 10, Alanine Aminotransferase (ALT/SGPT) 18, Alkaline Phosphatase 72, Total Protein 6.8, Albumin 3.1L, Albumin/Globulin Ratio 0.84L CBC/BMP Laboratory Tests 12/27/19 06:26 TAMRA BUTTS MD Dec 27, 2019 12:35
[2019-12-27 13:38] VITALS: BP 158/95
[2019-12-27] MEDS: RIVAROXABAN 10 MG TAB (XARELTO) PO SCH (18:35)
[2019-12-27] MEDS ORDERED: FLUTICASONE HFA 110 MCG 12 GM INHALER (FLOVENT) INH SCH (21:00)
[2019-12-27 22:00] VITALS: BP 148/78
[2019-12-28] MEDS: PERCOCET 5MG/325MG TAB PO PRN ×4 (00:34→18:58)
[2019-12-28 05:51] VITALS: BP 155/90
[2019-12-28 06:34] LABS: HEMATOCRIT 39.1 % (36.0-47.0); HEMOGLOBIN 12.4 g/dl (12.0-15.5); MEAN CORPUSCULAR HEMOGLOBIN 27.9 pg (27.0-33.0); MEAN CORPUSCULAR HGB CONC 31.7 g/dl (32.0-36.5); MEAN CORPUSCULAR VOLUME 88.1 fl (80.0-96.0); PLATELET COUNT, AUTOMATED 204 10^3/uL (150-450); RED BLOOD COUNT 4.44 10^6/uL (4.00-5.40); WHITE BLOOD COUNT 11.6 10^3/uL (4.0-10.0)
[2019-12-28 06:53] LABS: ALBUMIN 3.3 GM/DL (3.2-5.2); ALT/SGPT 14 U/L (12-78); BILIRUBIN,TOTAL 0.3 MG/DL (0.2-1.0); BLOOD UREA NITROGEN 8 MG/DL (7-18); CALCIUM LEVEL 8.6 MG/DL (8.5-10.1); CARBON DIOXIDE LEVEL 26 MEQ/L (21-32); CHLORIDE LEVEL 108 MEQ/L (98-107); CREATININE FOR GFR 0.72 MG/DL (0.55-1.30); GLOMERULAR FILTRATION RATE > 60.0 (>51); GLUCOSE, FASTING 119 MG/DL (70-100); SODIUM LEVEL 140 MEQ/L (136-145)
[2019-12-28 08:00] VITALS: BP 139/87
[2019-12-28] MEDS: MORPHINE 15 MG SA TAB PO SCH ×2 (08:01→21:49)
[2019-12-28] MEDS: FLUTICASONE HFA 44 MCG 10.6GM INHALER (FLOVENT) INH SCH ×2 (08:39→20:33)
[2019-12-28] MEDS: MOM 30ML SUSPENSION UDC PO SCH (09:12)
[2019-12-28] MEDS: MIRALAX *UNIT DOSE* 17GM PACKET PO SCH (09:12)
[2019-12-28] MEDS: IRBESARTAN 150 MG TAB PO SCH (09:13)
[2019-12-28] MEDS: ASCORBIC ACID 500 MG TAB PO SCH (09:13)
[2019-12-28] MEDS: PANTOPRAZOLE 40MG TAB (PROTONIX) PO SCH (09:13)
[2019-12-28] MEDS: CALCIUM CARBONATE 500 MG CHEW U/D PO SCH ×3 (09:13→21:48)
[2019-12-28] MEDS: SENOKOT S TAB PO SCH ×2 (09:13→21:48)
--- NOTE | 2019-12-28 11:35 | IPNPDOC ---
Subjective Date Seen The patient was seen on 12/28/19. Subjective Chief Complaint/HPI Patient is comfortable in no distress. Offers no new complaints. Physical therapy in progress General: Denies: ROS Unobtainable, Chills, Night Sweats, Fatigue, Malaise, Normal Appetite, Other Symptoms Constitutional: Denies: Chills, Fever, Malaise, Night Sweats, Weakness, Fatigue, Weight Loss, Lethargy, Other Pulmonary: Denies: Dyspnea, Cough, Pleuritic Chest Pain, Other Symptoms Cardiovascular: Denies: Chest Pain, Palpitations, Orthopnea, Paroxysmal Noc. Dyspnea, Edema, Lt Headedness, Other Symptoms Gastrointestinal: Denies: Nausea, Vomiting, Abdominal Pain, Diarrhea, Constipation, Melena, Hematochezia, Other Symptoms Musculoskeletal: Denies: Neck Pain, Back Pain, Shoulder Pain, Arm Pain, Hand Pain, Leg Pain, Foot Pain, Joint Pain, Muscle Pain, Spasms, Other Symptoms Neurological: Denies: Weakness, Numbness, Incoordination, Change in speech, Confusion, Seizures, Other Symptoms Objective Physical Examination ENT Exam: Positive: Atraumatic, Mucous membr. moist/pink Neck Exam: Positive: Supple Chest Exam: Positive: Clear to auscultation, Normal air movement Heart Exam: Positive: Rate Normal, Normal S1 Abdomen Exam: Positive: Normal bowel sounds, Soft, Tenderness Skin Exam: Positive: Breakdown Assessment /Plan Problems (1) Osteoarthritis of left knee Status: Acute Problem Text: Status post left total knee replacement Patient continues to improve with physical therapy Continue pain management As planned to possibly rehabilitation Further, as per orthopedic surgery Continue all home meds (2) HTN (hypertension) Status: Chronic Problem Text: Continue home meds (3) Asthma Status: Chronic Problem Text: Continue home meds Plan/VTE VTE Prophylaxis Ordered?: Yes VS, I&O, 24H, Fishbone Vital Signs/I&O Vital Signs Date Time Temp Pulse Resp B/P (MAP) Pulse Ox O2 Delivery O2 Flow Rate FiO2 12/28/19 10:11 20 12/28/19 09:13 139/87 12/28/19 08:00 98.2 92 95 Room Air 12/26/19 19:38 2.0 I&O- Last 24 Hours up to 6 AM 12/28/19 06:00 Intake Total 1110 ml Output Total 300 ml Balance 810 ml Laboratory Data 24H LABS Laboratory Tests 12/28/19 06:13: Nucleated Red Blood Cells % (auto) 0.0, Anion Gap 6L, Glomerular Filtration Rate > 60.0, Calcium Level 8.6, Total Bilirubin 0.3, Aspartate Amino Transf (AST/SGOT) 9, Alanine Aminotransferase (ALT/SGPT) 14, Alkaline Phosphatase 67, Total Protein 7.0, Albumin 3.3, Albumin/Globulin Ratio 0.89L CBC/BMP Laboratory Tests 12/28/19 06:13 TAMRA BUTTS MD Dec 28, 2019 11:35
[2019-12-28 13:55] VITALS: BP 143/92
[2019-12-28] MEDS: RIVAROXABAN 10 MG TAB (XARELTO) PO SCH (17:20)
[2019-12-28 22:00] VITALS: BP 139/78
[2019-12-29] MEDS: PERCOCET 5MG/325MG TAB PO PRN ×2 (03:49→10:35)
[2019-12-29 06:00] VITALS: BP 145/74
[2019-12-29] MEDS ORDERED: XARE10TA PO (06:44)
[2019-12-29 06:45] LABS: HEMATOCRIT 38.3 % (36.0-47.0); HEMOGLOBIN 12.1 g/dl (12.0-15.5); MEAN CORPUSCULAR HEMOGLOBIN 27.8 pg (27.0-33.0); MEAN CORPUSCULAR HGB CONC 31.6 g/dl (32.0-36.5); PLATELET COUNT, AUTOMATED 205 10^3/uL (150-450); RED BLOOD COUNT 4.35 10^6/uL (4.00-5.40); WHITE BLOOD COUNT 10.9 10^3/uL (4.0-10.0)
[2019-12-29 07:18] LABS: ALT/SGPT 12 U/L (12-78); BILIRUBIN,TOTAL 0.4 MG/DL (0.2-1.0); BLOOD UREA NITROGEN 11 MG/DL (7-18); CALCIUM LEVEL 8.8 MG/DL (8.5-10.1); CARBON DIOXIDE LEVEL 29 MEQ/L (21-32); CHLORIDE LEVEL 105 MEQ/L (98-107); CREATININE FOR GFR 0.73 MG/DL (0.55-1.30); GLOMERULAR FILTRATION RATE > 60.0 (>51); GLUCOSE, FASTING 117 MG/DL (70-100); SODIUM LEVEL 138 MEQ/L (136-145); TOTAL PROTEIN 6.7 GM/DL (6.4-8.2)
[2019-12-29] MEDS: FLUTICASONE HFA 44 MCG 10.6GM INHALER (FLOVENT) INH SCH (08:16)
[2019-12-29] MEDS: MORPHINE 15 MG SA TAB PO SCH (08:26)
[2019-12-29] MEDS ORDERED: MOM 30ML SUSPENSION UDC PO ONE (09:00)
[2019-12-29] MEDS: MIRALAX *UNIT DOSE* 17GM PACKET PO SCH (09:20)
[2019-12-29] MEDS: MOM 30ML SUSPENSION UDC PO SCH (09:23)
[2019-12-29] MEDS: CALCIUM CARBONATE 500 MG CHEW U/D PO SCH (09:23)
[2019-12-29] MEDS: PANTOPRAZOLE 40MG TAB (PROTONIX) PO SCH (09:23)
[2019-12-29 09:31] VITALS: BP 142/86
[2019-12-29] MEDS: IRBESARTAN 150 MG TAB PO SCH (09:31)
[2019-12-29] MEDS: ASCORBIC ACID 500 MG TAB PO SCH (09:32)
[2019-12-29] MEDS: SENOKOT S TAB PO SCH (09:39)
--- NOTE | 2019-12-29 10:28 | DSES ---
DATE OF ADMISSION: 12/26/2019 DATE OF DISCHARGE: 12/29/2019 REASON FOR ADMISSION: Left knee degenerative arthritis. DISCHARGE DIAGNOSIS: Left knee degenerative arthritis. PROCEDURE PERFORMED DURING ADMISSION: Left total knee arthroplasty. HISTORY OF PRESENT ILLNESS: Please see the history and physical, but in summary she is a 54-year-old female, otherwise fairly healthy other than some gastric reflux, some high blood pressure, and some obesity, who has been suffering with left knee osteoarthritis and now presents for elective knee replacement, which was performed on 12/26/2019. MEDICATIONS ON ADMISSION: - Flovent - ursodiol - irbesartan - Protonix - Ambien ALLERGIES: DECONGESTANTS, STEROIDS, SYMBICORT, and ALBUTEROL. OTHER MEDICAL ISSUES: She has history of some uterine fibroids, heart palpitations, has had a previous cardiac ablation, hyperlipidemia, Natalya syndrome type 2, low back pain, hearing loss. PAST SURGICAL HISTORY: Cardiac catheterization and ablation. Sinus surgeries. Bladder surgery for incontinence. Ovarian cystectomy. Tonsillectomy and adenoidectomy. SOCIAL HISTORY: Quit smoking many years ago. REVIEW OF SYSTEMS/HEALTH SURVEY: As otherwise amended to the chart. PHYSICAL EXAMINATION: On admission, she is a healthy, moderately obese female. She is 63 inches tall, 245.4 pounds. Temperature 99.2, heart rate 78, blood pressure is 120/68. HEENT Exam: Benign. Lungs: Clear. Heart: Regular. Abdomen: Obese and nontender. Left knee had crepitus and tenderness diffusely with range of motion limited to about 90 degrees, but she had good extension. Distal neurovascular exam was unremarkable. LABORATORY STUDIES: Unremarkable for any significant abnormalities. HOSPITAL COURSE: She was taken to the operating room on 12/26/2019, where she underwent a left total knee arthroplasty. Postoperatively, she had a considerable amount of discomfort and pain by the first postoperative day, difficulty bending and straightening the knee; however, her wound remained clean and dry. No signs of any infection. Distally, she remained neurovascularly intact. Her x-rays postoperatively were satisfactory in position. Her laboratory studies showed that her hematocrit remained stable. On discharge, it was 38. This was on 12/29/2019. Her electrolytes were normal. Glucose was normal on 12/29/2019. She worked daily with physical therapy but really had struggled quite significantly with getting her knee to bend as well as to control her leg in extension. It was felt by the opinion of the therapist and social workers that she was not safe for discharge to home and felt best for her to go to short-term rehabilitation to help work on recovery of her knee function and range of motion under a supervised situation, so it was arranged for her to be discharged to short-term rehabilitation on 12/29/2019. Plan to followup at [facility] otherwise in approximately 14 days from the date of surgery for clinical evaluation and probable removal of the liane. Edited: [facility] 12/30/2019 [id number]
[2019-12-29 10:30] VITALS: BP 142/86
--- NOTE | 2019-12-29 12:54 | IPNPDOC ---
Subjective Date Seen The patient was seen on 12/29/19. Subjective Chief Complaint/HPI Patient is comfortable sitting in chair, cooperating with physical therapy. Possibly discharge to rehabilitation today General: Denies: ROS Unobtainable, Chills, Night Sweats, Fatigue, Malaise, Normal Appetite, Other Symptoms Constitutional: Denies: Chills, Fever, Malaise, Night Sweats, Weakness, [place], Weight Loss, Lethargy, Other Pulmonary: Denies: Dyspnea, Cough, Pleuritic Chest Pain, Other Symptoms Cardiovascular: Denies: Chest Pain, Palpitations, Orthopnea, Paroxysmal Noc. Dyspnea, Edema, Lt Headedness, Other Symptoms Gastrointestinal: Denies: Nausea, Vomiting, Abdominal Pain, Diarrhea, Constipation Endocrine: Denies: Polydipsia, Polyphagia, Polyuria, Heat Intolerance, Cold Intolerance, Other Endocrine Sx Musculoskeletal: Denies: Neck Pain, Back Pain, Shoulder Pain, Arm Pain, Hand Pain, Leg Pain, Foot Pain, Joint Pain, Muscle Pain, Spasms, Other Symptoms Neurological: Denies: Weakness, Numbness, Incoordination, Change in speech, Confusion, Seizures, Other Symptoms Objective Physical Examination ENT Exam: Positive: Atraumatic, Mucous membr. moist/pink Neck Exam: Positive: Supple Chest Exam: Positive: Clear to auscultation, Normal air movement Heart Exam: Positive: Rate Normal, Normal S1 Abdomen Exam: Positive: Normal bowel sounds, Soft, Tenderness Skin Exam: Positive: Breakdown Assessment /Plan Problems (1) Osteoarthritis of left knee Status: Acute Problem Text: Status post left total knee replacement Patient continues to improve with physical therapy Continue pain management Possible discharge to rehabilitation today Further, as per orthopedic surgery Continue all home meds (2) HTN (hypertension) Status: Chronic Problem Text: Continue home meds (3) Asthma Status: Chronic Problem Text: Continue home meds Plan/VTE VTE Prophylaxis Ordered?: Yes VS, I&O, 24H, Fishbone Vital Signs/I&O Vital Signs Date Time Temp Pulse Resp B/P (MAP) Pulse Ox O2 Delivery O2 Flow Rate FiO2 12/29/19 11:05 20 12/29/19 09:31 142/86 12/29/19 06:00 97.8 104 98 Room Air 12/26/19 19:38 2.0 I&O- Last 24 Hours up to 6 AM 12/29/19 06:00 Intake Total 2220 ml Balance 2220 ml Laboratory Data 24H LABS Laboratory Tests 2 12/29/19 06:20: Nucleated Red Blood Cells % (auto) 0.0, Anion Gap 4L, Glomerular Filtration Rate > 60.0, Calcium Level 8.8, Total Bilirubin 0.4, Aspartate Amino Transf (AST/SGOT) 6L, Alanine Aminotransferase (ALT/SGPT) 12, Alkaline Phosphatase 61, Total Protein 6.7, Albumin 3.0L, Albumin/Globulin Ratio 0.81L CBC/BMP Laboratory Tests 12/29/19 06:20 TAMRA BUTTS MD Dec 29, 2019 12:54
== END 2019-12-29 12:50 | DRG 470 ==
LOC: M OR 12:05 → M MS5PR 19:45
PROVIDERS: ADMIT Orthopaedic Surgery; ATTEND Orthopaedic Surgery
PROC: 0SRD0J9 Replacement of Left Knee Joint with Synthetic Substitute, Cemented, Open Approach (ICD-10-PCS; principal; 2019-12-26 16:15)
DX: M17.0 Bilateral primary osteoarthritis of knee (principal); Z68.42 Body mass index [BMI] 45.0-49.9, adult; I10 Essential (primary) hypertension; K21.9 Gastro-esophageal reflux disease without esophagitis; E78.5 Hyperlipidemia, unspecified; M54.5 Low back pain; H91.93 Unspecified hearing loss, bilateral; E66.01 Morbid (severe) obesity due to excess calories; J45.909 Unspecified asthma, uncomplicated; Z87.891 Personal history of nicotine dependence; Z79.899 Other long term (current) drug therapy; Z97.4 Presence of external hearing-aid; Z88.8 Allergy status to other drugs, medicaments and biological substances

== ENCOUNTER → 2020-01-05 | Outpatient (REF) ==
[~2020-01-05] MED LIST changes: -ACETAMINOPHEN 500 MG TAB PO ONE; +AMBI5TAB PO; +AZEL0.1S NARES; -IRBE150T12 PO; +IRBE150T7 PO; -LR 1,000 ML IV ONE; +PERC5TAB12 PO; +XARE10TA PO; -ceFAZolin SOD 2 GM in IV 1 EA IV ONE
[2020-01-05 07:42] LABS: HEMATOCRIT 34.7 % (36.0-47.0); HEMOGLOBIN 11.3 g/dl (12.0-15.5); MEAN CORPUSCULAR HEMOGLOBIN 28.3 pg (27.0-33.0); MEAN CORPUSCULAR HGB CONC 32.6 g/dl (32.0-36.5); MEAN CORPUSCULAR VOLUME 86.8 fl (80.0-96.0); PLATELET COUNT, AUTOMATED 262 10^3/uL (150-450); WHITE BLOOD COUNT 7.6 10^3/uL (4.0-10.0)
[2020-01-05 07:56] LABS: BLOOD UREA NITROGEN 14 MG/DL (7-18); CALCIUM LEVEL 8.5 MG/DL (8.5-10.1); CARBON DIOXIDE LEVEL 28 MEQ/L (21-32); CHLORIDE LEVEL 106 MEQ/L (98-107); CREATININE FOR GFR 0.68 MG/DL (0.55-1.30); GLOMERULAR FILTRATION RATE > 60.0 (>51); GLUCOSE, FASTING 100 MG/DL (70-100); POTASSIUM SERUM 4.1 MEQ/L (3.5-5.1); SODIUM LEVEL 141 MEQ/L (136-145)
[2020-01-05 09:07] LABS: HEMOGLOBIN A1c 5.8 %
== END ==
LOC: SKLAB2 07:00
PROVIDERS: ATTEND Internal Medicine
DX: E11.9 Type 2 diabetes mellitus without complications (principal)

== ENCOUNTER 2020-02-20 14:55 | Outpatient (RCR) | payer MEDICARE, MEDICAID | END 2020-02-21 | LOC: M PT 14:55 | PROVIDERS: ATTEND Orthopaedic Surgery | DX: Z51.89 Encounter for other specified aftercare (principal); Z47.1 Aftercare following joint replacement surgery; Z96.652 Presence of left artificial knee joint ==

== ENCOUNTER 2020-03-09 15:15 | Outpatient (RCR) | payer MEDICARE, MEDICAID ==
[~2020-03-09 15:15] MED LIST changes: +VITA-243 PO; -VITA500T PO
== END 2020-03-22 ==
LOC: M PT 15:15
PROVIDERS: ATTEND Orthopaedic Surgery
DX: Z96.652 Presence of left artificial knee joint (principal)

== ENCOUNTER 2021-06-10 20:19 | Emergency (ER) | payer MEDICARE, MEDICAID, OTHER ==
[~2021-06-10] VITALS: Ht 160 cm; Wt 112.7 kg
[~2021-06-10 20:19] MED LIST changes: -CALC600T5 PO; +CALC600T61 PO; +FLOV100A; +FLOV100A IN; +FLOV100A INH; -FLOV100A3; -FLOV100A3 IN; -FLOV100A3 INH; +PANT40TA29 PO; -PANT40TA3 PO
[2021-06-10] MEDS ORDERED: NITR100C2 (20:47)
[2021-06-10] MEDS ORDERED: FLUC150T (20:47)
[2021-06-10] MEDS ORDERED: OMEP-218 (20:47)
[2021-06-10 21:10] LABS: BASO # 0.1 10^3/uL (0.0-0.2); BASO % 0.4 % (0.0-1.0); EOS # 0.1 10^3/uL (0.0-0.5); EOS % 0.9 % (0.0-3.0); HEMATOCRIT 42.2 % (36.0-47.0); HEMOGLOBIN 13.7 g/dl (12.0-15.5); LYMPH # 1.8 10^3/uL (1.5-5.0); LYMPH % 14.8 % (24.0-44.0); MEAN CORPUSCULAR HEMOGLOBIN 27.8 pg (27.0-33.0); MEAN CORPUSCULAR HGB CONC 32.5 g/dl (32.0-36.5); MEAN CORPUSCULAR VOLUME 85.8 fl (80.0-96.0); MONO # 0.6 10^3/uL (0.0-0.8); MONO % 4.9 % (2.0-8.0); NEUTROPHILS # 9.8 10^3/uL (1.5-8.5); NEUTROPHILS % 78.6 % (36.0-66.0); PLATELET COUNT, AUTOMATED 249 10^3/uL (150-450); RED BLOOD COUNT 4.92 10^6/uL (4.00-5.40); WHITE BLOOD COUNT 12.4 10^3/uL (4.0-10.0)
[2021-06-10 21:46] LABS: ALBUMIN 3.8 GM/DL (3.2-5.2); ALT/SGPT 37 U/L (12-78); BILIRUBIN,DIRECT < 0.1 MG/DL (0.0-0.2); BILIRUBIN,TOTAL 0.4 MG/DL (0.2-1.0); BLOOD UREA NITROGEN 17 MG/DL (7-18); CALCIUM LEVEL 9.6 MG/DL (8.5-10.1); CARBON DIOXIDE LEVEL 28 MEQ/L (21-32); CHLORIDE LEVEL 104 MEQ/L (98-107); CK-MB VALUE MASS 1.4 NG/ML (<3.6); CPK CREATINE PHOSPHOKINASE 51 U/L (26-192); CREATININE FOR GFR 0.79 MG/DL (0.55-1.30); GLOMERULAR FILTRATION RATE > 60.0 (>51); GLUCOSE, FASTING 112 MG/DL (70-100); LIPASE 149 U/L (73-393); MB/CK RELATIVE INDEX 2.75 (< OR =4); POTASSIUM SERUM 4.1 MEQ/L (3.5-5.1); SODIUM LEVEL 138 MEQ/L (136-145); TOTAL PROTEIN 7.5 GM/DL (6.4-8.2); TROPONIN I < 0.02 NG/ML (< 0.10)
[2021-06-10] MEDS ORDERED: GI COCKTAIL 50ML BTL(HYOSCYAMINE/MAALOX/LIDOCAINE VISCOUS)(1:3:1) PO ONE (22:15)
--- NOTE | 2021-06-10 22:35 | ECGEPIP ---
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
--- NOTE | 2021-06-10 22:54 | REPVR ---
PROCEDURE INFORMATION: Exam: XR Chest Exam date and time: 06/10/21 (9:28pm) Age: 56 years old Clinical indication: Chest pain TECHNIQUE: Imaging protocol: Portable CXR Views: 1 view COMPARISON: Chest films of 09/06/17 FINDINGS: Lungs: Unremarkable. No consolidation. Pleural spaces: Unremarkable. No pleural effusions. No pneumothorax. Heart/Mediastinum: Unremarkable. No cardiomegaly. Bones/joints: Unremarkable. IMPRESSION: No acute findings. Lung milan remain clear. Electronically signed by: Meghan Ortiz On 06/10/2021 22:53:31 PM
[2021-06-10 23:15] VITALS: BP 144/81
== END 2021-06-10 23:20 | disposition home or self-care (01) ==
LOC: M ED 20:19
DX: K21.9 Gastro-esophageal reflux disease without esophagitis (principal); I10 Essential (primary) hypertension; I48.91 Unspecified atrial fibrillation; J45.909 Unspecified asthma, uncomplicated; R35.0 Frequency of micturition; Z79.899 Other long term (current) drug therapy; Z79.01 Long term (current) use of anticoagulants; Z88.8 Allergy status to other drugs, medicaments and biological substances

== ENCOUNTER → 2021-06-14 | Outpatient (CLI) | payer MEDICARE, MEDICAID, OTHER ==
[~2021-06-14] MED LIST changes: +FLUC150T; +OMEP-218
[2021-06-14 15:05] LABS: HEMATOCRIT 41.5 % (36.0-47.0); HEMOGLOBIN 13.4 g/dl (12.0-15.5); MEAN CORPUSCULAR HEMOGLOBIN 27.7 pg (27.0-33.0); MEAN CORPUSCULAR HGB CONC 32.3 g/dl (32.0-36.5); MEAN CORPUSCULAR VOLUME 85.7 fl (80.0-96.0); PLATELET COUNT, AUTOMATED 209 10^3/uL (150-450); RED BLOOD COUNT 4.84 10^6/uL (4.00-5.40); WHITE BLOOD COUNT 8.2 10^3/uL (4.0-10.0)
[2021-06-14 15:08] LABS: APPEARANCE, URINE CLEAR (CLEAR); BACTERIA, URINE AUTO NEGATIVE (NEGATIVE); BILIRUBIN, URINE AUTO NEGATIVE (NEGATIVE); BLOOD, URINE BLOOD NEGATIVE (NEGATIVE); COLOR, URINE YELLOW (YELLOW); GLUCOSE, URINE (UA) AUTO NEGATIVE (NEGATIVE); KETONE, URINE AUTO NEGATIVE (NEGATIVE); LEUKOCYTE ESTERASE, URINE AUTO NEGATIVE (NEGATIVE); MUCUS, URINE SMALL (NEGATIVE); NITRITE, URINE AUTO NEGATIVE (NEGATIVE); PROTEIN, URINE AUTO NEGATIVE (NEGATIVE); RBC, URINE AUTO 1 /HPF (0-3); SPECIFIC GRAVITY URINE AUTO 1.014 (1.002-1.035); SQUAMOUS EPITHELIAL CELL UR AU 1 /HPF (0-6); UROBILINOGEN, URINE AUTO 0.2 mg/dL (0.0-2.0); WBC, URINE AUTO 1 /HPF (0-3)
[2021-06-14 15:39] LABS: ALBUMIN 3.7 GM/DL (3.2-5.2); ALT/SGPT 28 U/L (12-78); BILIRUBIN,TOTAL 0.4 MG/DL (0.2-1.0); BLOOD UREA NITROGEN 16 MG/DL (7-18); CALCIUM LEVEL 9.4 MG/DL (8.5-10.1); CARBON DIOXIDE LEVEL 22 MEQ/L (21-32); CHLORIDE LEVEL 108 MEQ/L (98-107); CHOLESTEROL LEVEL 224 MG/DL (<200); CHOLESTEROL RISK RATIO 6.222 (<5); CREATININE FOR GFR 0.59 MG/DL (0.55-1.30); GLOMERULAR FILTRATION RATE > 60.0 (>51); GLUCOSE, FASTING 96 MG/DL (70-100); HDL CHOLESTEROL 36 MG/DL (>40); LDL CHOLESTEROL 162 MG/DL (<100); NON-HDL-C 188 MG/DL; POTASSIUM SERUM 4.2 MEQ/L (3.5-5.1); SODIUM LEVEL 140 MEQ/L (136-145); TOTAL PROTEIN 7.6 GM/DL (6.4-8.2); TRIGLYCERIDES LEVEL 129 MG/DL (<150)
== END ==
LOC: M LAB 14:03
PROVIDERS: ATTEND Family Medicine
DX: N39.0 Urinary tract infection, site not specified (principal); I10 Essential (primary) hypertension; E07.9 Disorder of thyroid, unspecified; H90.3 Sensorineural hearing loss, bilateral

== ENCOUNTER → 2021-06-14 | Outpatient (CLI) | payer MEDICARE, MEDICAID, OTHER ==
[2021-06-14 16:15] LABS: BLOOD UREA NITROGEN 16 MG/DL (7-18); CREATININE FOR GFR 0.62 MG/DL (0.55-1.30); GLOMERULAR FILTRATION RATE > 60.0 (>51)
== END ==
LOC: M LAB 13:56
PROVIDERS: ATTEND Physician Assistant Medical
DX: H90.3 Sensorineural hearing loss, bilateral (principal)

== ENCOUNTER → 2021-08-13 | Outpatient (CLI) | payer OTHER, MEDICAID ==
[~2021-08-13] MED LIST changes: +PROHANCE 279.3MG/ML 15ML VIAL As Ordered ONE; +PROHANCE 279.3MG/ML 5ML VIAL As Ordered ONE
== END ==
LOC: M RAD 17:19
PROVIDERS: ATTEND Physician Assistant Medical
DX: H90.3 Sensorineural hearing loss, bilateral (principal)
CPT/HCPCS: A9576 ×2

== ENCOUNTER → 2022-07-03 | Outpatient (CLI) | payer OTHER, MEDICAID ==
[~2022-07-03] MED LIST changes: +ALBU2.5V10 INH; -ALBU83IN INH; -FLUC150T; +FLUC150T9; +OMEP-173; -OMEP-218; +PROG200C22 PO; -PROHANCE 279.3MG/ML 15ML VIAL As Ordered ONE; -PROHANCE 279.3MG/ML 5ML VIAL As Ordered ONE; -PROM200C5 PO
== END ==
LOC: M RAD 14:52
PROVIDERS: ATTEND Otolaryngology
DX: H90.3 Sensorineural hearing loss, bilateral (principal)

== ENCOUNTER → 2023-02-06 | Outpatient (REF) | payer OTHER, MEDICAID | LOC: M LAB REF 16:36 | PROVIDERS: ATTEND Family Medicine Addiction Medicine | DX: R30.9 Painful micturition, unspecified (principal) ==

== ENCOUNTER 2023-02-26 18:48 | Emergency (ER) | payer OTHER, MEDICAID ==
[~2023-02-26] VITALS: Ht 160 cm; Wt 113.0 kg
[2023-02-26] MEDS ORDERED: KETOROLAC 30 MG/ML 1ML VIAL IV ONE (19:25)
[2023-02-26 19:47] LABS: BASO % 0.3 % (0.0-1.0); EOS # 0.1 10^3/uL (0.0-0.5); EOS % 0.7 % (0.0-3.0); HEMATOCRIT 41.4 % (36.0-47.0); HEMOGLOBIN 13.5 g/dl (12.0-15.5); LYMPH # 1.4 10^3/uL (1.5-5.0); MEAN CORPUSCULAR HEMOGLOBIN 28.3 pg (27.0-33.0); MEAN CORPUSCULAR HGB CONC 32.6 g/dl (32.0-36.5); MEAN CORPUSCULAR VOLUME 86.8 fl (80.0-96.0); MONO # 0.5 10^3/uL (0.0-0.8); MONO % 4.6 % (2.0-8.0); NEUTROPHILS # 9.7 10^3/uL (1.5-8.5); NEUTROPHILS % 82.1 % (36.0-66.0); PLATELET COUNT, AUTOMATED 243 10^3/uL (150-450); RED BLOOD COUNT 4.77 10^6/uL (4.00-5.40); WHITE BLOOD COUNT 11.8 10^3/uL (4.0-10.0)
[2023-02-26 20:15] LABS: CK-MB VALUE MASS < 1.0 NG/ML (<3.6)
[2023-02-26 20:16] LABS: BLOOD UREA NITROGEN 13 MG/DL (9-23); CALCIUM LEVEL 8.7 MG/DL (8.5-10.1); CARBON DIOXIDE LEVEL 22 MMOL/L (20-31); CHLORIDE LEVEL 107 MMOL/L (98-107); CREATININE FOR GFR 0.74 MG/DL (0.55-1.30); GLOMERULAR FILTRATION RATE > 60.0 (>51); GLUCOSE, FASTING 133 MG/DL (60-100); POTASSIUM SERUM 3.8 MMOL/L (3.5-5.1); SODIUM LEVEL 139 MMOL/L (136-145)
[2023-02-26 20:17] LABS: CPK CREATINE PHOSPHOKINASE 50 U/L (34-145)
[2023-02-26 21:12] LABS: CK-MB VALUE MASS < 1.0 NG/ML (<3.6)
[2023-02-26 21:14] LABS: CPK CREATINE PHOSPHOKINASE 40 U/L (34-145)
[2023-02-26 21:30] VITALS: BP 135/88
== END 2023-02-26 21:45 | disposition home or self-care (01) ==
LOC: M ED 18:48
DX: S60.222A Contusion of left hand, initial encounter (principal); S80.01XA Contusion of right knee, initial encounter; W01.0XXA Fall on same level from slipping, tripping and stumbling without subsequent striking against object, initial encounter; Y92.410 Unspecified street and highway as the place of occurrence of the external cause; Y93.01 Activity, walking, marching and hiking; Y99.8 Other external cause status; H54.8 Legal blindness, as defined in USA; Z88.8 Allergy status to other drugs, medicaments and biological substances; Z79.899 Other long term (current) drug therapy
CPT/HCPCS: 73110; 73130; 73564; 80048; 82550; 82553; 84484; 85025; 93005; 96374; 99284; J1885

== ENCOUNTER → 2023-03-16 | Outpatient (CLI) | payer OTHER, MEDICAID | LOC: M WHC 15:30 | PROVIDERS: ATTEND Nurse Practitioner Family | DX: Z12.31 Encounter for screening mammogram for malignant neoplasm of breast (principal) ==

== ENCOUNTER → 2023-03-16 | Outpatient (REF) | payer OTHER, MEDICARE, MEDICAID | LOC: M PLALAB 16:18 | PROVIDERS: ATTEND Nurse Practitioner Family | DX: Z12.4 Encounter for screening for malignant neoplasm of cervix (principal) | CPT/HCPCS: 87624; G0123 ==

== ENCOUNTER → 2023-07-10 | Outpatient (CLI) | payer OTHER, MEDICAID ==
[~2023-07-10] MED LIST changes: -PROG200C22 PO; +PROG200C32 PO
[2023-07-10 16:00] LABS: BASO # 0.1 10^3/uL (0.0-0.2); BASO % 0.6 % (0.0-1.0); EOS # 0.3 10^3/uL (0.0-0.5); HEMATOCRIT 41.1 % (36.0-47.0); LYMPH # 2.2 10^3/uL (1.5-5.0); LYMPH % 23.2 % (24.0-44.0); MEAN CORPUSCULAR HGB CONC 31.6 g/dl (32.0-36.5); MEAN CORPUSCULAR VOLUME 88.4 fl (80.0-96.0); MONO # 0.4 10^3/uL (0.0-0.8); MONO % 4.5 % (2.0-8.0); NEUTROPHILS # 6.5 10^3/uL (1.5-8.5); NEUTROPHILS % 68.4 % (36.0-66.0); PLATELET COUNT, AUTOMATED 250 10^3/uL (150-450); RED BLOOD COUNT 4.65 10^6/uL (4.00-5.40); WHITE BLOOD COUNT 9.5 10^3/uL (4.0-10.0)
[2023-07-10 16:19] LABS: HEMOGLOBIN A1c 5.3 % (4.0-6.0)
[2023-07-10 16:42] LABS: ALBUMIN 3.7 G/DL (3.2-5.2); ALKALINE PHOSPHATASE 82 U/L (46-116); ALT/SGPT 16 U/L (7.0-40); AST/SGOT < 8 U/L (<34); BILIRUBIN,TOTAL 0.3 MG/DL (0.3-1.2); BLOOD UREA NITROGEN 13 MG/DL (9-23); CALCIUM LEVEL 9.4 MG/DL (8.5-10.1); CARBON DIOXIDE LEVEL 27 MMOL/L (20-31); CHLORIDE LEVEL 104 MMOL/L (98-107); CHOLESTEROL LEVEL 228 MG/DL (<200); CHOLESTEROL RISK RATIO 6.58 (<5); CREATININE FOR GFR 0.66 MG/DL (0.55-1.30); FREE T4 0.94 NG/DL (0.89-1.76); GLOMERULAR FILTRATION RATE > 60.0 (>51); GLUCOSE, FASTING 97 MG/DL (60-100); HDL CHOLESTEROL 34.6 MG/DL (>40); LDL CHOLESTEROL 166.2 MG/DL (<100); NON-HDL-C 193.4 MG/DL; POTASSIUM SERUM 3.8 MMOL/L (3.5-5.1); SODIUM LEVEL 139 MMOL/L (136-145); THYROID STIMULATING HORMONE 2.581 uIU/ML (0.55-4.78); TOTAL PROTEIN 6.9 G/DL (5.7-8.2); TRIGLYCERIDES LEVEL 136 MG/DL (<150)
== END ==
LOC: M PLALAB 14:26
PROVIDERS: ATTEND Physician Assistant
DX: E78.2 Mixed hyperlipidemia (principal); I10 Essential (primary) hypertension; E66.01 Morbid (severe) obesity due to excess calories; Z13.1 Encounter for screening for diabetes mellitus; Z79.899 Other long term (current) drug therapy

== ENCOUNTER 2023-11-16 04:03 | Emergency (ER) | payer OTHER, MEDICAID ==
[~2023-11-16] VITALS: Ht 165.1 cm; Wt 121.1 kg
[2023-11-16 04:56] LABS: BASO # 0.1 10^3/uL (0.0-0.2); BASO % 0.4 % (0.0-1.0); EOS # 0.2 10^3/uL (0.0-0.5); EOS % 1.6 % (0.0-3.0); HEMATOCRIT 43.8 % (36.0-47.0); HEMOGLOBIN 14.3 g/dl (12.0-15.5); LYMPH # 2.9 10^3/uL (1.5-5.0); LYMPH % 24.2 % (24.0-44.0); MEAN CORPUSCULAR HEMOGLOBIN 28.4 pg (27.0-33.0); MEAN CORPUSCULAR HGB CONC 32.6 g/dl (32.0-36.5); MEAN CORPUSCULAR VOLUME 87.1 fl (80.0-96.0); MONO # 0.6 10^3/uL (0.0-0.8); MONO % 5.3 % (2.0-8.0); NEUTROPHILS # 8.2 10^3/uL (1.5-8.5); NEUTROPHILS % 68.2 % (36.0-66.0); PLATELET COUNT, AUTOMATED 263 10^3/uL (150-450); RED BLOOD COUNT 5.03 10^6/uL (4.00-5.40)
[2023-11-16] MEDS: METOPROLOL 5 MG/5 ML VIAL IV SCH ×3 (05:11→05:27)
[2023-11-16 05:20] LABS: CK-MB VALUE MASS < 1.0 NG/ML (<3.6)
[2023-11-16 05:21] LABS: BLOOD UREA NITROGEN 21 MG/DL (9-23); CALCIUM LEVEL 9.9 MG/DL (8.5-10.1); CARBON DIOXIDE LEVEL 24 MMOL/L (20-31); CHLORIDE LEVEL 107 MMOL/L (98-107); CREATININE FOR GFR 0.64 MG/DL (0.55-1.30); GLOMERULAR FILTRATION RATE > 60.0 (>51); GLUCOSE, FASTING 115 MG/DL (60-100); SODIUM LEVEL 140 MMOL/L (136-145)
[2023-11-16 05:24] LABS: CPK CREATINE PHOSPHOKINASE 46 U/L (34-145); MB/CK RELATIVE INDEX 2.17 (< OR =4)
[2023-11-16] MEDS ORDERED: ATEN25TA PO (06:18)
[2023-11-16] MEDS ORDERED: atenoloL 25 MG TAB PO ONE (06:20)
[2023-11-16] MEDS ORDERED: ASPI-1 PO (06:25)
[2023-11-16 06:30] VITALS: BP 143/75
[2023-11-16 06:33] VITALS: TEMP 97.9; O2SAT 97
== END 2023-11-16 06:48 | disposition home or self-care (01) ==
LOC: M ED 04:03 → EDBD 04:03 → M ED 06:48
DX: I48.91 Unspecified atrial fibrillation (principal); J44.9 Chronic obstructive pulmonary disease, unspecified; I10 Essential (primary) hypertension; K21.9 Gastro-esophageal reflux disease without esophagitis; E78.00 Pure hypercholesterolemia, unspecified; F32.9 Major depressive disorder, single episode, unspecified; Z88.8 Allergy status to other drugs, medicaments and biological substances; Z79.899 Other long term (current) drug therapy; Z79.01 Long term (current) use of anticoagulants; Z79.82 Long term (current) use of aspirin

== ENCOUNTER → 2023-12-24 | Outpatient (CLI) | payer MEDICARE, MEDICAID ==
[~2023-12-24] MED LIST changes: +ASPI-1 PO; +ATEN25TA PO; +IRBE150T27 PO; -IRBE150T7 PO
== END ==
LOC: M WHC 14:13
PROVIDERS: ATTEND Physician Assistant
DX: I65.21 Occlusion and stenosis of right carotid artery (principal)

== ENCOUNTER → 2024-06-14 | Outpatient (CLI) | payer MEDICARE, MEDICAID ==
[~2024-06-14] MED LIST changes: +ISOVUE-370 76% 100ML VIAL As Ordered ONE
== END ==
LOC: M RAD 16:24
PROVIDERS: ATTEND Physician Assistant
DX: R51.9 Headache, unspecified (principal)
CPT/HCPCS: 70470; Q9967

== ENCOUNTER → 2024-10-25 | Outpatient (REF) | payer MEDICARE, MEDICAID ==
[~2024-10-25] MED LIST changes: -AZEL0.1S NARES; +AZEL137S8 NARES; -ISOVUE-370 76% 100ML VIAL As Ordered ONE; +LEVA15HF2 INH; -LEVAINH INH; -POTA540T PO; +POTA540T5 PO
[2024-10-26 12:38] LABS: Trichomonas vaginalis (AMP) NOT DETECTED (NEGATIVE)
[2024-10-26 13:02] LABS: GC DNA AMPLIFICATION NEGATIVE (NEGATIVE)
== END ==
LOC: M SFHCWAGY 17:14
PROVIDERS: ATTEND Nurse Practitioner Family
DX: R35.0 Frequency of micturition (principal); N73.9 Female pelvic inflammatory disease, unspecified; Z11.3 Encounter for screening for infections with a predominantly sexual mode of transmission

== ENCOUNTER → 2024-10-25 | Outpatient (CLI) | payer MEDICARE, MEDICAID | LOC: M WHC 16:00 | PROVIDERS: ATTEND Physician Assistant | DX: Z12.31 Encounter for screening mammogram for malignant neoplasm of breast (principal); R92.323 Mammographic fibroglandular density, bilateral breasts; N95.2 Postmenopausal atrophic vaginitis; N81.6 Rectocele; R35.0 Frequency of micturition; N73.9 Female pelvic inflammatory disease, unspecified; Z11.3 Encounter for screening for infections with a predominantly sexual mode of transmission; N84.1 Polyp of cervix uteri; N39.41 Urge incontinence; M99.05 Segmental and somatic dysfunction of pelvic region; Z80.8 Family history of malignant neoplasm of other organs or systems; Z79.02 Long term (current) use of antithrombotics/antiplatelets; Z79.51 Long term (current) use of inhaled steroids; Z79.82 Long term (current) use of aspirin; Z79.899 Other long term (current) drug therapy | CPT/HCPCS: 77063; 77067; 87070; 87086; 87661; 87810; 87850; G0463 ==

== ENCOUNTER → 2024-12-15 | Outpatient (CLI) | payer MEDICARE, MEDICAID | LOC: M SLEEP 20:00 | PROVIDERS: ATTEND Internal Medicine Pulmonary Disease | DX: R06.83 Snoring (principal) ==

== ENCOUNTER → 2025-03-07 | Outpatient (CLI) | payer MEDICARE, MEDICAID ==
[2025-03-07 17:36] LABS: HEMOGLOBIN A1c 4.9 % (4.0-6.0)
[2025-03-07 17:53] LABS: VITAMIN B12 LEVEL 774 PG/ML (211-911)
[2025-03-07 17:54] LABS: FOLATE 16.9 NG/ML (>5.4); TOTAL 25(OH) VITAMIN D 53.6 NG/ML (20.0-100.0)
[2025-03-07 17:56] LABS: ALBUMIN 3.9 G/DL (3.2-5.2); ALKALINE PHOSPHATASE 78 U/L (35-104); ALT/SGPT 27 U/L (7.0-40); AST/SGOT 15 U/L (<34); BILIRUBIN,TOTAL 0.4 MG/DL (0.3-1.2); BLOOD UREA NITROGEN 17 MG/DL (9-23); CALCIUM LEVEL 9.2 MG/DL (8.3-10.6); CARBON DIOXIDE LEVEL 26 MMOL/L (20-31); CHLORIDE LEVEL 108 MMOL/L (98-107); CREATININE FOR GFR 0.55 MG/DL (0.55-1.30); FERRITIN 56.5 NG/ML (7.3-270.7); GLOMERULAR FILTRATION RATE > 90.0 (>45); GLUCOSE, FASTING 92 MG/DL (74-106); IRON (FE) 39 UG/DL (50-170); PERCENT SATURATION 13.9 % (13.2-45.0); POTASSIUM SERUM 4.2 MMOL/L (3.5-5.1); SODIUM LEVEL 143 MMOL/L (136-145); TOTAL IRON BINDING CAPACITY 281 UG/DL (250-425); TOTAL PROTEIN 6.7 G/DL (5.7-8.2)
[2025-03-07 17:57] LABS: FREE T4 1.15 NG/DL (0.89-1.76); THYROID STIMULATING HORMONE 2.077 uIU/ML (0.55-4.78)
== END ==
LOC: M PLALAB 15:09
PROVIDERS: ATTEND Nurse Practitioner Family
DX: Z13.1 Encounter for screening for diabetes mellitus (principal); Z13.29 Encounter for screening for other suspected endocrine disorder; I10 Essential (primary) hypertension; R53.83 Other fatigue; Z79.899 Other long term (current) drug therapy; Z86.39 Personal history of other endocrine, nutritional and metabolic disease

== ENCOUNTER → 2025-04-11 | Outpatient (CLI) | payer MEDICARE, MEDICAID ==
[~2025-04-11] MED LIST changes: -AMBI5TAB PO; +ZOLP-532 PO
== END ==
LOC: M WHC 12:50
PROVIDERS: ATTEND Nurse Practitioner Family
DX: I65.22 Occlusion and stenosis of left carotid artery (principal); I10 Essential (primary) hypertension; R33.9 Retention of urine, unspecified

== ENCOUNTER → 2025-04-11 | Outpatient (CLI) | payer MEDICARE, MEDICAID ==
[2025-04-11 15:32] LABS: APPEARANCE, URINE HAZY (CLEAR); BACTERIA, URINE AUTO NEGATIVE (NEGATIVE); BILIRUBIN, URINE AUTO NEGATIVE (NEGATIVE); BLOOD, URINE BLOOD NEGATIVE (NEGATIVE); COLOR, URINE YELLOW (YELLOW); GLUCOSE, URINE (UA) AUTO 3+ mg/dL (NEGATIVE); KETONE, URINE AUTO NEGATIVE (NEGATIVE); LEUKOCYTE ESTERASE, URINE AUTO TRACE (NEGATIVE); MUCUS, URINE SMALL (NEGATIVE); NITRITE, URINE AUTO NEGATIVE (NEGATIVE); PROTEIN, URINE AUTO NEGATIVE (NEGATIVE); RBC, URINE AUTO 1 /HPF (0-3); SPECIFIC GRAVITY URINE AUTO 1.025 (1.002-1.035); SQUAMOUS EPITHELIAL CELL UR AU 2 /HPF (0-6); UROBILINOGEN, URINE AUTO 0.2 mg/dL (0.0-2.0); WBC, URINE AUTO 2 /HPF (0-3)
[2025-04-11 15:38] LABS: BLOOD UREA NITROGEN 20 MG/DL (9-23); CALCIUM LEVEL 9.1 MG/DL (8.3-10.6); CARBON DIOXIDE LEVEL 27 MMOL/L (20-31); CHLORIDE LEVEL 109 MMOL/L (98-107); CREATININE FOR GFR 0.56 MG/DL (0.55-1.30); GLOMERULAR FILTRATION RATE > 90.0 (>45); GLUCOSE, FASTING 102 MG/DL (74-106); POTASSIUM SERUM 4.1 MMOL/L (3.5-5.1); SODIUM LEVEL 143 MMOL/L (136-145)
== END ==
LOC: M PLALAB 13:35
PROVIDERS: ATTEND Nurse Practitioner Family
DX: I10 Essential (primary) hypertension (principal); R33.9 Retention of urine, unspecified

== ENCOUNTER 2025-07-02 06:12 | Emergency (ER) | payer MEDICARE, MEDICAID ==
[~2025-07-02] VITALS: Ht 160 cm; Wt 89.1 kg
[~2025-07-02 06:12] MED LIST changes: +ARNU50IN INH; +FARX1TAB3 PO; +MONI4CRE3 PV; -OMEP-173; +OMEP-173 PO; +ROSU20TA86 PO; +TRET0.046
[2025-07-02 06:14] VITALS: TEMP 97.2
[2025-07-02 06:57] LABS: BASO # 0.1 10^3/uL (0.0-0.2); BASO % 0.6 % (0.0-1.0); EOS # 0.2 10^3/uL (0.0-0.5); EOS % 2.1 % (0.0-3.0); LYMPH # 2.2 10^3/uL (1.5-5.0); LYMPH % 25.6 % (24.0-44.0); MONO # 0.5 10^3/uL (0.0-0.8); MONO % 6.0 % (2.0-8.0); NEUTROPHILS # 5.5 10^3/uL (1.5-8.5); NEUTROPHILS % 65.6 % (36.0-66.0); PLATELET COUNT, AUTOMATED 195 10^3/uL (150-450)
[2025-07-02 07:07] LABS: INR 0.94
[2025-07-02 07:22] LABS: CK-MB VALUE MASS 1.7 NG/ML (<3.6)
[2025-07-02 07:23] LABS: ALT/SGPT 29 U/L (7.0-40); AST/SGOT 21 U/L (<34)
[2025-07-02 07:24] LABS: CPK CREATINE PHOSPHOKINASE 37 U/L (34-145); MB/CK RELATIVE INDEX 4.59 (< OR =4)
[2025-07-02 08:21] LABS: MAGNESIUM LEVEL 2.1 MG/DL (1.8-2.4)
[2025-07-02] MEDS ORDERED: HOLTER MONITOR XX (09:16)
[2025-07-02 09:39] VITALS: BP 108/63; O2SAT 98
== END 2025-07-02 09:50 | disposition home or self-care (01) ==
LOC: M ED 06:12
DX: R07.9 Chest pain, unspecified (principal); R00.2 Palpitations; I48.91 Unspecified atrial fibrillation; E78.00 Pure hypercholesterolemia, unspecified; M54.50 Low back pain, unspecified; Z91.09 Other allergy status, other than to drugs and biological substances; Z88.8 Allergy status to other drugs, medicaments and biological substances; Z79.899 Other long term (current) drug therapy

== ENCOUNTER → 2025-07-31 | Outpatient (REF) | payer MEDICARE, MEDICAID ==
[~2025-07-31] MED LIST changes: +HOLTER MONITOR XX
[2025-08-01 14:38] LABS: BVAB 2 NEGATIVE (NEGATIVE)
[2025-08-01 14:52] LABS: CANDIDA GLABRATA NAA NOT DETECTED (NOT DETECTED); TRICH VAG BY NAA NOT DETECTED (NOT DETECTED)
[2025-08-01 15:43] LABS: CHLAMYDIA TRACHOMATIS NAA NOT DETECTED (NOT DETECTED)
== END ==
LOC: M SFHCWAGY 12:41
PROVIDERS: ATTEND Obstetrics & Gynecology
DX: N89.8 Other specified noninflammatory disorders of vagina (principal); N84.1 Polyp of cervix uteri; Z11.3 Encounter for screening for infections with a predominantly sexual mode of transmission; Z72.89 Other problems related to lifestyle

== ENCOUNTER 2025-08-23 09:54 | Emergency (ER) | payer MEDICARE, MEDICAID ==
[~2025-08-23] VITALS: Ht 160 cm; Wt 90.2 kg
[2025-08-23] MEDS ORDERED: ESTR10TA (10:42)
[2025-08-23] MEDS ORDERED: TAMS1CAP17 (10:42)
[2025-08-23] MEDS ORDERED: METH-1164 PO (10:55)
[2025-08-23] MEDS ORDERED: IBUP600T42 PO (10:55)
[2025-08-23] MEDS: IBUPROFEN 600 MG TAB PO ONE (11:00)
[2025-08-23 11:10] VITALS: BP 128/81; TEMP 97.8; O2SAT 96
== END 2025-08-23 11:15 | disposition home or self-care (01) ==
LOC: M ED 09:54
DX: S46.012A Strain of muscle(s) and tendon(s) of the rotator cuff of left shoulder, initial encounter (principal); Y92.019 Unspecified place in single-family (private) house as the place of occurrence of the external cause; Y93.9 Activity, unspecified; Y99.9 Unspecified external cause status; I48.91 Unspecified atrial fibrillation; K21.9 Gastro-esophageal reflux disease without esophagitis; Z88.8 Allergy status to other drugs, medicaments and biological substances; Z91.09 Other allergy status, other than to drugs and biological substances; Z79.1 Long term (current) use of non-steroidal anti-inflammatories (NSAID); Z79.899 Other long term (current) drug therapy

== ENCOUNTER → 2025-10-09 | Outpatient (CLI) | payer MEDICARE, MEDICAID ==
[~2025-10-09] MED LIST changes: +ESTR10TA; +IBUP600T42 PO; +METH-1164 PO; +TAMS1CAP17
[2025-10-09 14:22] LABS: CHOLESTEROL LEVEL 164.0 MG/DL (<200); CHOLESTEROL RISK RATIO 4.23 (<5); LDL CHOLESTEROL 108.3 MG/DL (<100); NON-HDL-C 125.3 MG/DL; TRIGLYCERIDES LEVEL 85.0 MG/DL (<150)
== END ==
LOC: M LAB 13:26
PROVIDERS: ATTEND Internal Medicine Cardiovascular Disease
DX: E78.2 Mixed hyperlipidemia (principal); I50.32 Chronic diastolic (congestive) heart failure